=== PATIENT | female | born 1950 | race Caucasian/White ===

== ENCOUNTER 2017-03-09 23:00 | Outpatient (CLI) | payer MEDICARE, OTHER | END 2017-03-09 23:01 | disposition critical access hospital (66) | LOC: EMS 23:00 | PROVIDERS: ATTEND Surgery | DX: R41.82 Altered mental status, unspecified (principal) | CPT/HCPCS: A0425; A0427 ==

== ENCOUNTER 2017-03-09 23:42 | Inpatient (IN) | payer MEDICARE, OTHER ==
--- NOTE | 2017-03-10 00:56 | CT Preliminary Report ---
Exam: CT Head W/O IMPRESSION: No acute or focal intracranial abnormality. Paranasal sinus disease, requiring clinical c orrelation. [facility] SITE ID: [id number]
--- NOTE | 2017-03-10 00:58 | CT Report ---
EXAM: CT HEAD EXAM DATE: 03/10/2017 12:24 AM. CLINICAL HISTORY: Altered mental status. COMPARISON: None. TECHNIQUE: Multiaxial CT images were obtained from the foramen magnum to the vertex. IV contrast: Non e. Reformats: Coronal. In accordance with CT protocol optimization, one or more of the following dose reduction techniques w ere utilized for this exam: automated exposure control, adjustment of mA and/or KV based on patient s ize, or use of iterative reconstructive technique. FINDINGS: Parenchyma: No intraparenchymal hemorrhage. No evidence of mass, midline shift, or CT findings of inf arction. Barakat-white differentiation is distinct. Extraaxial Spaces: Normal for age. No subdural or epidural collections identified. Ventricles: Normal in size and position. Sinuses: Opacification of multiple ethmoid air cells bilaterally. Opacified left frontal sinus. Moder ate mucosal thickening within the right frontal sinus. Areas of mucosal thickening within the upper p ortions of both maxillary antra and within the left sphenoid. Bones: No evidence of fracture or calvarial defect. Other: None. IMPRESSION: No acute or focal intracranial abnormality. Paranasal sinus disease, requiring clinical c orrelation. [facility] Referring Provider Line: [phone] SITE ID: [id number]
[2017-03-10 01:31] LABS: BASOPHILS # (AUTO) 0.1 10^3/uL (0.0-0.1); BASOPHILS % (AUTO) 0.7 %; EOSINOPHILS # (AUTO) 0.3 10^3/uL (0.0-0.7); EOSINOPHILS % (AUTO) 4.4 %; HCT - HEMATOCRIT 35.8 % (37.0-47.0); HGB - HEMOGLOBIN 12.2 g/dL (12.0-16.0); LYMPHOCYTES # (AUTO) 1.2 10^3/uL (1.5-3.5); LYMPHOCYTES % (AUTO) 15.3 %; MEAN CORPUSCULAR HEMOGLOBIN 32.5 pg (27.0-31.0); MEAN CORPUSCULAR VOLUME 95.5 fL (81.0-99.0); MEAN PLATELET VOLUME 6.9 fL (7.9-10.8); MONOCYTES # (AUTO) 0.9 10^3/uL (0.0-1.0); MONOCYTES % (AUTO) 11.1 %; NEUTROPHILS # (AUTO) 5.3 10^3/uL (1.5-6.6); NEUTROPHILS % (AUTO) 68.5 %; RED BLOOD COUNT 3.75 10^6/uL (4.20-5.40); RED CELL DISTRIBUTION WIDTH 13.6 % (12.0-15.0); UNCORRECTED WHITE BLOOD COUNT 7.7 x10^3/uL; WHITE BLOOD COUNT 7.7 x10^3/uL (4.8-10.8)
--- NOTE | 2017-03-10 01:41 | ED Physician Documentation ---
PD HPI ALTERED MENTAL STATUS - Stated complaint Stated Complaint: AMS - Chief complaint Chief Complaint: Neuro - History obtained from History obtained from: EMS, Caregiver - History of Present Illness Timing - onset: Today Timing - details: Gradual onset, Still present Quality / character: Less responsive, Confused Associated symptoms: No: Fever, Headache, Stiff neck, General weakness, Focal weakness, Seizure activity, Syncope Contributing factors: Diabetic, Cancer Basline status: Alert and oriented X 3 Treatment METAL WEIGHER: Accucheck Similar symptoms before: Work up / diagnostics, Treatment, Follow up Recently seen: Emergency Dept - Additional information Additional information: Patient is a 66 year old female with a 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 According to the friends of the patient, about 3 hours ago the patient started acting differently , getting less responsive and confused so the called ems. Upon arrival to the emergency department patient was awake, but not following commands. patient was moving all extremities and would look at you if you called her name. The friends state there was something similar about a month ago but it occured in [place] (where patient normally resides). Review of Systems Unable to obtain: AMS PD PAST MEDICAL HISTORY - Past Medical History Past Medical History: Yes Endocrine/Autoimmune: Type 2 diabetes Other Past Medical History: cancer of the appendix - Past Surgical History Past Surgical History: Yes - Present Medications Home Medications: Ambulatory Orders Medication Instructions Recorded Confirmed Bisoprolol Fumarate 10 mg PO DAILY 03/10/17 03/10/17 Hydrochlorothiazide 25 mg PO DAILY 03/10/17 03/10/17 Insulin Glargine [Lantus] 10 unit SUBQ ONCE 03/10/17 03/10/17 Irbesartan [Avapro] 150 mg PO DAILY 03/10/17 03/10/17 Magnesium 100 mg PO DAILY 03/10/17 03/10/17 Potassium Chloride 600 mg PO DAILY 03/10/17 03/10/17 Pyridoxine HCl [Vitamin B-6] 10 mg PO DAILY 03/10/17 03/10/17 Tramadol HCl/Acetaminophen 1 each PO QID 03/10/17 03/10/17 [Tramadol-Acetaminophn 37.5-325] metFORMIN [Glucophage] 500 mg PO BID 03/10/17 03/10/17 - Allergies Allergies/Adverse Reactions: Allergies Allergy/AdvReac Type Severity Reaction Status Date / Time Penicillins Allergy Unknown Verified 03/10/17 02:41 - Social History Does the pt smoke?: No Smoking Status: Never smoker Does the pt drink ETOH?: No Does the pt have substance abuse?: No - Immunizations Immunizations are current?: Yes PD ED PE NORMAL - Vitals Vital signs reviewed: Yes - General General: No acute distress, Well developed/nourished - HEENT HEENT: Atraumatic, PERRL, Moist mucous membranes - Neck Neck: No JVD - Cardiac Cardiac: RRR, No murmur - Respiratory Respiratory: No respiratory distress, Clear bilaterally - Abdomen Abdomen: Soft, Non distended - Derm Derm: Normal color, Warm and dry, No rash - Extremities Extremities: No deformity, No tenderness to palpate, No edema PD ED PE EXPANDED - General General: No acute distress, Other (easily arousable) - Neuro Neuro: Confused, Normal motor, Other (no focal deficit, moves all extremities). No: Unresponsive, Normal Speech Results - Vitals Vitals: Vital Signs - 24 hr 03/09/17 03/10/17 23:44 03:03 Temperature 36.8 C Heart Rate 92 81 Respiratory 16 16 Rate Blood Pressure 183/117 H 186/93 H O2 Saturation 97 96 Oxygen O2 Source Room air - Labs Labs: Laboratory Tests 03/10/17 03/10/17 03/10/17 01:25 01:25 01:25 WBC 7.7 RBC 3.75 L Hgb 12.2 Hct 35.8 L MCV 95.5 MCH 32.5 H MCHC 34.0 RDW 13.6 Plt Count 275 MPV 6.9 L Neut # 5.3 Lymph # 1.2 L [place] # 0.9 Eos # 0.3 Baso # 0.1 Absolute Nucleated RBC 0.00 Nucleated RBCs 0.0 PT 11.4 INR 1.0 APTT 26.9 Sodium 134 L Potassium 3.5 Chloride 90 L Carbon Dioxide 31 Anion Gap 13.0 BUN 18 Creatinine 0.6 Estimated GFR (MDRD) 100 Glucose 285 H Calcium 10.0 Phosphorus 3.2 Magnesium 1.7 Total Bilirubin 0.5 AST 18 ALT 13 Alkaline Phosphatase 69 Troponin I B-Natriuretic Peptide Total Protein 7.8 Albumin 4.1 Globulin 3.7 Albumin/Globulin Ratio 1.1 Lipase 21 L Urine Color Urine Clarity Urine pH Ur Specific [place] Urine Protein Urine Glucose (UA) Urine Ketones Urine Occult Blood Urine Nitrite Urine Bilirubin Urine Urobilinogen Ur Leukocyte Esterase Ur Microscopic Review Urine Culture Comments Urine Opiates Screen Ur Oxycodone Screen Urine Methadone Screen Ur Propoxyphene Screen Acetaminophen < 10 L Ur Barbiturates Screen Ur Tricyclics Screen Ur Phencyclidine Scrn Ur Amphetamine Screen U Methamphetamines Scrn U Benzodiazepines Scrn Urine Cocaine Screen U Cannabinoids Screen 03/10/17 03/10/17 03/10/17 01:25 01:25 02:50 WBC RBC Hgb Hct MCV MCH MCHC RDW Plt Count MPV Neut # Lymph # [place] # Eos # Baso # Absolute Nucleated RBC Nucleated RBCs PT INR APTT Sodium Potassium Chloride Carbon Dioxide Anion Gap BUN Creatinine Estimated GFR (MDRD) Glucose Calcium Phosphorus Magnesium Total Bilirubin AST ALT Alkaline Phosphatase Troponin I < 0.04 B-Natriuretic Peptide 105 H Total Protein Albumin Globulin Albumin/Globulin Ratio Lipase Urine Color YELLOW Urine Clarity CLEAR Urine pH 7.5 Ur Specific [place] 1.015 Urine Protein TRACE Urine Glucose (UA) 500 H Urine Ketones TRACE Urine Occult Blood TRACE-INTA Urine Nitrite NEGATIVE Urine Bilirubin NEGATIVE Urine Urobilinogen 0.2 (NORMAL) Ur Leukocyte Esterase NEGATIVE Ur Microscopic Review NOT INDICATED Urine Culture Comments NOT INDICATED Urine Opiates Screen NEGATIVE Ur Oxycodone Screen NEGATIVE Urine Methadone Screen NEGATIVE Ur Propoxyphene Screen NEGATIVE Acetaminophen Ur Barbiturates Screen NEGATIVE Ur Tricyclics Screen NEGATIVE Ur Phencyclidine Scrn NEGATIVE Ur Amphetamine Screen NEGATIVE U Methamphetamines Scrn NEGATIVE U Benzodiazepines Scrn NEGATIVE Urine Cocaine Screen NEGATIVE U Cannabinoids Screen NEGATIVE - Rads (name of study) ct head Radiology: Final report received (no acute abnormality) PD MEDICAL DECISION MAKING - ED course Complexity details: reviewed old records, reviewed results, re-evaluated patient , considered differential, d/w patient, d/w family, d/w franchise business consultant ED course: Patient was seen and examined at bedside. IV access was gained and labs were drawn. Patient was sent for imaging. When patient returned the results were reviewed. there were no major abnormalities. Patient was still confused. Patient was not a candidate for tpa due to the possible metastatic disease, and possible stroke in less than a month ago. case was discussed with the hospitalist who agreed for observation for MRI, further evaluation and care. Departure - Departure Disposition: ED Place in Observation Clinical Impression: Altered mental status Condition: Stable
[2017-03-10 01:45] LABS: ALBUMIN/GLOBULIN RATIO 1.1 (1.0-2.2); BILIRUBIN,TOTAL 0.5 mg/dL (0.2-1.0); BUN - BLOOD UREA NITROGEN 18 mg/dL (6-20); CARBON DIOXIDE - CO2 31 mmol/L (21-32); CHLORIDE 90 mmol/L (101-111); CREATININE 0.6 mg/dL (0.4-1.0); GFR - MDRD 100 (>89); GLUCOSE 285 mg/dL (70-100); LIPASE 21 U/L (22-51); MAGNESIUM 1.7 mg/dL (1.7-2.8); PHOSPHORUS 3.2 mg/dL (2.5-4.6); POTASSIUM 3.5 mmol/L (3.5-5.0); SODIUM 134 mmol/L (135-145); TOTAL PROTEIN 7.8 g/dL (6.7-8.2)
[2017-03-10 01:47] LABS: ACETAMINOPHEN < 10 ug/mL (10-30)
[2017-03-10 01:48] LABS: PT - PROTHROMBIN TIME 11.4 secs (9.9-12.6)
[2017-03-10 01:56] LABS: PARTIAL THROMBOPLASTIN TIME 26.9 secs (24.9-33.3)
[2017-03-10] MEDS ORDERED: ONDANSETRON 4 MG/2 ML VIAL ONE (02:58)
[2017-03-10 03:02] LABS: BILIRUBIN,URINE NEGATIVE (NEGATIVE); PH,URINE 7.5 PH (5.0-7.5)
[2017-03-10 03:10] LABS: UA CHARGE (STRIP ONLY) YES; UR CULTURE IF IND NOT INDICATED
[2017-03-10] MEDS ORDERED: ONDANSETRON ODT 4 MG TABLET TL PRN (04:00)
--- NOTE | 2017-03-10 05:42 | XRAY Preliminary Report ---
Exam: XR Abdomen 1 View IMPRESSION: 1. Left ureteral stent in place. 2. Moderate to large stool burden. [facility] SITE ID: [id number]
--- NOTE | 2017-03-10 05:45 | XRAY Report ---
EXAM: ABDOMEN RADIOGRAPHY EXAM DATE: 03/10/2017 04:11 AM. CLINICAL HISTORY: MRI screen, has stent in abd. COMPARISON: None. TECHNIQUE: 1 view. FINDINGS: Bowel Gas Pattern: Moderate to large stool burden. Nonobstructive. Other: Left ureteral stent. No metallic device seen. IMPRESSION: 1. Left ureteral stent in place. 2. Moderate to large stool burden. [facility] Referring Provider Line: [phone] SITE ID: [id number]
[2017-03-10] MEDS: CIPROFLOXACIN 200 MG/100 ML 100 ML IV SCH ×2 (06:05→18:20)
[2017-03-10] MEDS: SODIUM CHLORIDE FLUSH 0.9% 10 ML SYRINGE IVP SCH ×3 (06:05→21:26)
--- NOTE | 2017-03-10 06:09 | HISTORY & PHYSICAL EXAMINATION ---
DATE OF OBSERVATION: 03/10/2017. PRIMARY CARE PROVIDER: Unknown; the patient is a resident of [facility], and her healthcare is in [facility]. ADMITTING PROVIDER: Yolette Fletcher MD. CHIEF COMPLAINT: Sudden onset of confusion, garbled speech. HISTORY OF PRESENT ILLNESS: The patient is a 66-year-old female who presented to her physician in [facility] with increasing abdominal girth, weight loss in the summer of 2015. 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 Chemotherapy was then switched to that and some of it was attenuated because of development of peripheral neuropathy. All of this history is ob tained from her friend who accompanies her today. They are in contact with her friends in [facility] and they are emailing back and forth to give me this history. After receiving chemotherapy, disease progressed to metastatic disease to the lungs or pleura, they a re not sure. A month and a half ago she then presented with acute confusional state with jimmy cruz ch and they thought she was having a stroke. She was hospitalized in [place] for close to a week and th ey describe a series of x-rays to the brain, lumbar punctures. They think she even had 6 lumbar punct ures. There is suspicion that she may have meningeal spread of tumor. Chemotherapy has been temporarily stopped because she is awaiting removal of a stent in her abdomen. She had ureteral obstruction with a stent placed. It had been giving her frequent urinary tract infec tions and they stopped chemotherapy to let her cell counts bounce back to then allow them to remove t he stent. Since she was going to "have time" in between chemotherapy treatments, the patient opted to return to the [facility] to make one last trip to many friends. She flew into [place], [place] on 02/28. Her friends describe her as frail and having lost quite a bit of weight. She was over 200 p ounds and most likely is down to about 118 now, but she recovered quickly from her flight, was intere sted in friends, eating, was in good spirits. The main deficits her friends noticed is that she is no t as sharp as she used to be. 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 She was unsteady on her feet at times, but overall doing remarkably better than they anticipated. As the week progressed in [place], she became more and more exhausted. She had several parties that were he ld in her honor. She was spending more time sleeping. At one point she felt like she was developing a nother urinary tract infection, so went to the urgent care in [place]. She received Cipro p.o. for 3 days. She then flew to [place] yesterday, came to the [place] last night. She is here to visit friends. One of her friends from [place] accompanied her. Her main complaint over the last few days has been left lower quadrant pain where the stent is and the pain seems to be getting worse, since that she was marco ing tramadol today. From what they could see, there were no fevers, no chills, no rigors. She was just immensely exhauste d from the plane trip. She slept late this morning, got up, socialized normally, and then went back t o take another nap. When she woke up from her nap to eat dinner, she had an abrupt change. She had ga rbled speech or slurred speech. She seemed confused. Because she has diabetes, her friends thought th at she had a low blood sugar and gave her orange juice and something to eat. She quickly corrected he r mentation and was back to normal. That lasted about 45 minutes. She was in the process of saying go marielenabye to yet another friend who was returning to [place] when that friend notified the group at [facility] that she was back to having garbled speech and confused. She was clasping her phone in her hand, trying to put her fingers on it, trying to make a call to [place], saying "I can't see this, I can't s ee this." Speech quickly deteriorated to be garbled, making no sense, and she was back to also being very unsteady on her feet even more so. In our emergency room, she is afebrile, hypertensive to 183/117. Pulse is sinus. She is very sleepy a nd lethargic. Is responsive to voice, but is completely confused. Her main response to all questions is "okay, okay, okay." CT of the head was done and there is no acute intracranial abnormality. Sodium is 134. Random glucose 285. Lactic acid normal. White cell count normal, hemoglobin normal. She has glucosuria, trace proteinuria, but otherwise a clean urinalysis. Toxicology screen is negative. It has been a very difficult history taking session. The patient is unable to speak for herself, and it is her friend from [place] who is here and her friend locally on [facility] who has provided t his history, as they email back and forth between the [place] and [facility]. The patient is marrie d to an 89-year-old deaf man. He was a corporate accountant and he has not been in the picture yet with christopher rubio. PAST MEDICAL HISTORY 1. Type 2 diabetes mellitus. 2. G1, P0-0-1-0. 3. She has had a hysterectomy in the remote past. 4. History of right breast biopsy that was benign in the remote past. ALLERGIES: PENICILLIN. MEDICATIONS Her friends bring in her boxes of medication. She is on 1. Avapro 150 mg p.o. daily. 2. Bisacodyl 10 mg p.o. daily. 3. Glucophage 500 mg p.o. b.i.d. 4. Hydrochlorothiazide 25 mg p.o. daily. 5. Lantus 10 units subcutaneous at bedtime. 6. Magnesium 100 mg daily. 7. Potassium chloride 600 mg daily. 8. Tramadol with acetaminophen 1 tablet 4 times a day. She took 3 today. 9. Pyridoxine 10 mg p.o. daily. 10. Ciprofloxacin 250 p.o. b.i.d., #6 tablets, has 1 more tablet in the packet not yet completed. SOCIAL HISTORY: To her friends' knowledge, she was never a smoker and a rare alcohol drinker. She has been twice and currently is to her second , who is 89 and deaf. 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 CODE STATUS: BOTH FRIENDS CONCUR THAT THIS PATIENT WAS TERRIFIED OF ENDING UP WITH COGNITIVE IMPAIRME NTS. WHILE SHE WAS STILL SEEKING THERAPY, SHE HAS STATED OVER AND OVER AGAIN THAT IF IT GOT TO THE PO INT WHERE SHE WAS NOT HERSELF AND COULD NO LONGER THINK CLEARLY, SHE WAS GOING TO MOVE TO [place] SO SHE COULD DO [place]. SUCH, THE PATIENT WILL BE DO NOT RESUSCITATE, DO NOT INTUBATE ON THE BASIS OF THAT CONVERSATION. FAMILY HISTORY: Unknown. Unable to be obtained at this time. Her friends do know that she has a siste r who lives in [place], but do not know anything about her health status. REVIEW OF SYSTEMS: Also difficult to obtain. They describe her as currently quite cachectic. Intermit tently good appetite. She used to be over 200 pounds and is now quite cachectic. She is more unsteady on her feet, sleepier, and the patient herself acknowledges to them that she is not thinking clearly anymore. She has had increasing fatigue this last week. She is thinking about not driving anymore wh en she returns to [facility]. To their knowledge, she has no cardiac disease, pulmonary disease, chronic joint disease, or chronic psychiatric disease. PHYSICAL EXAMINATION VITAL SIGNS: She is seen in the emergency room with a temperature of 36.8, pulse 81, blood pressure 1 86/93, respirations 16, and 96% on room air. GENERAL: She is a gaunt, cachectic, middle-aged female who looks much older than stated age with bila teral temporal wasting, dry oral mucosa, a vacant glazed look when you do wake her up, short hair, bu t no alopecia. HEAD AND NECK: She has dry eyes. Pupils are reactive. Sclerae nonicteric. Speech is intact, in that s he will be repetitive in stating "I'm okay, I'm okay, I'm okay," but no other purposeful speech is gi mor. She is lying on her left side, and I cannot tell if some of her facial droop is just from gravit y and a slack facies. NECK: Supple. No JVD or goiter. LUNGS: Diminished breath sounds at the bases, but are clear to auscultation and percussion. CARDIOVASCULAR: PMI is normally placed with a regular rate and rhythm. ABDOMEN: Soft, not distended. Hypoactive bowel sounds. With attention to the left lower quadrant, the re is no pain, rebound, or guarding. EXTREMITIES: Thin with wasted muscle mass. No clubbing, cyanosis, or edema. Homans' negative. SKIN: Normal colored and quite pale over the lower extremities with no redness, swelling, heat, etc. NEUROLOGIC: She responds to my voice, looks me in the face, but is unable answer any questions. Her u niversal response is "okay." Again, possible slight facial droop, but speech is clear. Pupils are chadwick ctive. She does not follow any commands and on her own will spontaneously move her right hand to gras p an emesis bag because of emesis. She then uses her left arm to reposition her pillow and scratch he r head. She rolls over from one side of the body to the other side of the body without assistance. Sh e extends and flexes her knees and hips to make herself comfortable spontaneously. Hematology, coagulation, chemistry, urine and toxicology as above. CT of the head as above. ASSESSMENT AND PLAN 1. Altered mental status. In this patient, the differential diagnosis could be drugs from tramadol, i nfection from an untreated urinary tract infection, meningeal spread of tumor. Right now, I am not fi nding any significant electrolyte abnormalities. From a drug perspective, she is used to taking trama dol, so I would think that would not be it. Urinalysis is currently clear and I think most of it has been treated for a UTI already and leaves me with possible meningeal spread. The patient left [facility] before she got up final report on her lumbar puncture results. We will place in observation, treat wi th IV fluids. Order an MRI tomorrow morning, with and without contrast. 2. 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 Again, as above, MRI of the head with and without contrast. We will check a screening KUB to make sure the stent they talk about has no metal in it. 3. Type 2 diabetes mellitus, uncontrolled. It is not associated with lactic acidosis from metformin. We will continue high dose sliding scale insulin here with n.p.o. status. 4. DO NOT RESUSCITATE STATUS. 5. Deep venous thrombosis prophylaxis will be compression hose. JOB #: [id number] EXT JOB #:[id number]
[2017-03-10 06:18] LABS: CALCIUM 9.6 mg/dL (8.5-10.3); CREATININE 0.6 mg/dL (0.4-1.0); POTASSIUM 3.6 mmol/L (3.5-5.0)
[2017-03-10] MEDS: INSULIN REGULAR HUMAN 100 UNIT/1 ML 10 ML MDV SUBQ SCH ×3 (06:36→21:24)
[2017-03-10] MEDS: POLYETHYLENE GLYCOL 3350 17 GM PACKET PO SCH (08:39)
[2017-03-10 09:25] LABS: HEMOGLOBIN A1C 0.9 g/dL
[2017-03-10] MEDS ORDERED: LORazepam 2 MG/ML SYRINGE IVP PRN ×2 (10:09→16:32)
--- NOTE | 2017-03-10 12:09 | PROVIDER PROGRESS NOTE ---
Hospitalist Cross-cover Note - Cross-Cover Note Cross-Cover Note: The patient was seen and examined this afternoon. The patient appears to have progression of her symptoms. She is currently nonverbal and appears to have right hemineglect. Her right upper and lower extremities are flaccid, she is not following any commands but does open her eyes. We are awaiting MRI which will be done later this afternoon. The patient has likely had a stroke as she is hypertensive. We will allow for permissive hypertension and patient will be given aspirin per rectum. It is also possible that the patient may have metastatic spread of her appendiceal cancer to her brain. We will await MRI results to find out.
[2017-03-10] MEDS ORDERED: ASPIRIN 300 MG SUPP PR SCH (13:00)
[2017-03-10] MEDS: MORPHINE 2 MG/ML SYRINGE IVP PRN (16:01)
[2017-03-10] MEDS: SODIUM CHLORIDE FLUSH 0.9% 10 ML SYRINGE IVP PRN ×2 (16:01→16:45)
[2017-03-10] MEDS ORDERED: GADOBUTROL 7.5 MMOL/7.5 ML VIAL IVP ONE (17:12)
--- NOTE | 2017-03-10 18:23 | MRI Preliminary Report ---
Exam: MRI Brain W/WO Impression: 1. Motion limited study. 2. A very mild amount of white matter disease is demonstrated in the supratentorial brain. 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 3. No other intracranial pathology is identified. In particular, there is no evidence of infarction, hemorrhage or other acute brain pathology. In addition, the postcontrast sequences are degraded by pa tient motion, however, no obvious intracranial metastatic disease is demonstrated. 4. There is fairly extensive, mucosal disease in the paranasal sinuses as described. No definite air- fluid level is demonstrated. However, in the appropriate clinical setting this could represent active sinusitis. SITE ID: [id number]
[2017-03-10] MEDS ORDERED: IPRATROPIUM/ALBUTEROL 3 ML NEB INH SCH (19:00)
--- NOTE | 2017-03-10 19:28 | MRI Report ---
MRI BRAIN WITHOUT AND WITH CONTRAST INDICATION: 66-year-old female. Altered mental status (unresponsive). The patient has known intraabdo chase or intrapelvic malignancy. Concern for intracranial metastatic disease. COMPARISON: Head CT 03/10/2017. TECHNIQUE: 1. T1 sagittal and fat-saturated T2 coronal. 2. Axial T1, FLAIR, T2, T2*, and DWI. 3. 5.5 mL IV Gadavist. T1 3-D and T1 FFE axial sequences. FINDINGS: The patient had difficulty holding still for this examination. There is image degradation from patien t motion on multiple sequences, decreasing the diagnostic quality of the study. There is generalized cerebral and cerebellar volume loss. The degree of volume loss is considered at upper limits of normal for stated age. There is associated ex vacuo ventriculomegaly. There is no sig nificant discordance between the degree of ventriculomegaly and the amount of cortical sulcal dilatat ion to suggest the possibility of NPH or other form of hydrocephalus. There appears to be a mild amount of white matter disease in the supratentorial brain, manifested as focal and confluent T2 hyperdensities that are scattered throughout the periventricular and deep whit e matter bilaterally. A frontoparietal distribution predominates. Signal intensity of cortex and whit e matter otherwise grossly appears normal. There appear to be flow voids for the main intracranial arteries. No abnormal diffusion restriction i s demonstrated. No evidence of acute or chronic hemorrhage on T2* GRE sequence. Postcontrast sequences are degraded by patient motion. However, no enhancing intra-or extra-axial les ion is identified. No obvious pathologic meningeal or cranial nerve enhancement is identified. There appears to be normal intravascular contrast enhancement in the dural venous sinuses and deep venous s tructures. This effectively excludes the possibility of venous thrombosis. Limited assessment of the orbits reveals no gross pathology. In particular, no enhancing choroidal me tastasis is identified in either optic globe. Changes of previous left ocular lens extraction are not ed. There is extensive opacification of the ethmoid air cells. This appears to be due to mucosal thickeni ng plus or minus retained mucus. Mucosal thickening is seen in the sphenoid sinus. No definite air-fl uid level is demonstrated. There is near total opacification of frontal sinuses from circumferential mucosal thickening. No mastoid or middle ear effusion is demonstrated. Marrow signal intensity in the regional skeletal structures is unremarkable. No T2 hyperintense or en hancing bone lesion is identified. IMPRESSION: 1. Motion-limited study. 2. A very mild amount of white matter disease is demonstrated in the supratentorial brain. The findin gs are relatively nonspecific; however, this most likely represents chronic microangiopathy. 3. No other intracranial pathology is identified. In particular, there is no evidence of infarction, hemorrhage or other acute brain pathology. In addition, the postcontrast sequences are degraded by pa tient motion; however, no obvious intracranial metastatic disease is demonstrated. 4. There is fairly extensive, mucosal disease in the paranasal sinuses as described. No definite air- fluid level is demonstrated. However, in the appropriate clinical setting, this could represent activ e sinusitis. Referring Provider Line: [phone] SITE ID: [id number]
[2017-03-10] MEDS: DOXYCYCLINE 100 MG TABLET PO SCH (20:14)
[2017-03-10] MEDS: LORazepam 2 MG/ML SYRINGE IVP PRN (21:14)
[2017-03-10] MEDS: MORPHINE 2 MG/ML CARPUJECT IVP PRN (21:22)
[2017-03-10] MEDS: ACETAMINOPHEN 1,000 MG/100 ML 100 ML IV PRN (22:06)
[2017-03-10] MEDS ORDERED: VANCOMYCIN PER PHARMACY 1 GM in SODIUM CHLORIDE 0.9% 250 ML IV SCH (23:45)
[2017-03-11] MEDS: AZTREONAM 2 GM in SODIUM CHLORIDE 0.9% MINIBAG 100 ML IV SCH ×3 (01:21→16:49)
[2017-03-11] MEDS: MORPHINE 2 MG/ML CARPUJECT IVP PRN (01:26)
[2017-03-11] MEDS: INSULIN REGULAR HUMAN 100 UNIT/1 ML 10 ML MDV SUBQ SCH ×4 (01:40→18:34)
[2017-03-11] MEDS: ACETAMINOPHEN 1,000 MG/100 ML 100 ML IV PRN ×3 (01:48→18:35)
[2017-03-11] MEDS: VANCOMYCIN INJ 1 GM in SODIUM CHLORIDE 0.9% 250 ML IV SCH (02:17)
[2017-03-11] MEDS: LORazepam 2 MG/ML SYRINGE IVP PRN ×2 (05:42→07:52)
[2017-03-11] MEDS: SODIUM CHLORIDE FLUSH 0.9% 10 ML SYRINGE IVP SCH ×3 (05:43→21:27)
[2017-03-11] MEDS: CIPROFLOXACIN 200 MG/100 ML 100 ML IV SCH ×2 (05:47→16:52)
[2017-03-11 06:49] LABS: CALCIUM 8.9 mg/dL (8.5-10.3); CREATININE 0.7 mg/dL (0.4-1.0); POTASSIUM 2.9 mmol/L (3.5-5.0)
[2017-03-11 07:09] LABS: CHOL/HDL RATIO 3.1 (<4.4); CHOLESTEROL 179 mg/dL; HDL CHOLESTEROL 57 mg/dL; LDL/HDL RATIO 1.8 (<4.4); TRIGLYCERIDES 86 mg/dL; VLDL CHOLESTEROL 17 mg/dL
[2017-03-11] MEDS ORDERED: DEXTROSE IV ONE (08:02)
[2017-03-11] MEDS ORDERED: NACL IV ONE (08:02)
[2017-03-11 08:54] LABS: THYROID STIMULATING HORMONE 0.78 uIU/mL (0.34-5.60)
[2017-03-11] MEDS: POLYETHYLENE GLYCOL 3350 17 GM PACKET PO SCH (09:26)
[2017-03-11] MEDS: DOXYCYCLINE 100 MG TABLET PO SCH (09:26)
[2017-03-11] MEDS: POTASSIUM CHLOR 10 MEQ/100 ML 100 ML IV SCH ×4 (10:02→14:02)
[2017-03-11] MEDS: D5.45NS W/20 MEQ KCL 1,000 ML IV SCH ×2 (10:02→23:24)
[2017-03-11] MEDS: SODIUM CHLORIDE FLUSH 0.9% 10 ML SYRINGE IVP PRN (10:34)
[2017-03-11] MEDS: MORPHINE 2 MG/ML SYRINGE IVP PRN (10:34)
[2017-03-11] MEDS: INSULIN GLARGINE 300 UNIT/3 ML PEN SUBQ SCH (13:09)
--- NOTE | 2017-03-11 13:44 | PROVIDER PROGRESS NOTE ---
Assessment/Plan - Problem List (1) Altered mental status Qualifiers: Altered mental status type: unspecified Qualified Code(s): R41.82 - Altered mental status, unspecified Assessment/Plan: Patient presented with acute change in mentation at dinner just prior to arrival According to friends she was acting strange and became confused later her voice became garbled On presentation she was perpetrating and repeatedly would say 'ok' to all questions She did not have any obvious motor deficits on presentation Patients symptoms progressed very rapidly within hours she began displaying right chantal-neglect and was non verbal Patient lives in [facility] and has been getting treatment for Appendiceal mucinous cancer and recently developed some garbled speech, seizures and neurological deficits for which she was hospitalized and underwent extensive workup including MRI and LP which seem to have been inconclusive but most likely thought to have meningeal spread of cancer Patient underwent MRI yesterday which did not show any acute intracranial abnormality Patient does not appear to have had a stroke The most likely cause for her altered mental status is meningeal spread of the cancer vs meningitis After speaking with patients friends and family decision was made not to do another LP as patient required 6 pokes to get LP in [facility] We will treat empirically from meningitis and encephalitis and monitor the patient Patient continues to have progression of her symptoms and continues to have a rapid decline now not opening eyes or responsive and only minimally moving the left side Patient is spiking fevers which makes infection more likely Plan: IV vanco, aztreonam, cipro and acyclovir Continue to monitor neuro status If patient continues to decline despite treatment then family would like to make her comfortable Patients prognosis is poor given the rapid decline and her underlying cancer Patient will be given 24-48 hours of abx to see if she responds if not responding patient will likely be made comfort care We will not start tube feedings unless patient starts to show signs of recovery Patients friends want patient to go back to [facility] but it was explained to them that in her current condition this was not possible and I spoke with her and told him that it would be best if he came here (2) Malignant neoplasm of appendix Assessment/Plan: 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 , 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 Patients AMS maybe secondary to meningeal spread but will treat as meningitis for now and wait to see if any recovery occurs Patients MRI was negative (3) Diabetes Qualifiers: Diabetes mellitus type: type 2 Assessment/Plan: Patient NPO secondary to AMS Placed on IV D5 1/2NS with K Started on home dose of lantus and NPO SS insulin Monitor BG ACHS (4) Hypertension Qualifiers: Hypertension type: essential hypertension Qualified Code(s): I10 - Essential (primary) hypertension Assessment/Plan: We were allowing for permissive HTN given that we thought this was stroke initially Now patients BP is improved without intervention Will hold home meds as patient NPO will give IV antihypertensives if needed (5) Prophylactic use of low molecular weight heparin for venous thromboembolism (VTE) Assessment/Plan: On lovenox - Current Meds Current Meds: Current Medications Generic Name Dose Route Start Last Admin Trade Name Freq PRN Reason Stop Dose Admin Albuterol/Ipratropium 3 ml 03/10/17 19:00 03/10/17 19:10 Duoneb INH 03/11/17 19:00 3 ml RTQID AGUSTINA Administration Doxycycline Hyclate 100 mg 03/10/17 21:00 03/11/17 09:26 Vibramycin PO Not Given BID AGUSTINA Ciprofloxacin 100 mls @ 100 mls/hr 03/10/17 05:00 03/11/17 05:47 Cipro 200 Mg/100 Ml IV 100 mls/hr Q12H AGUSTINA Administration Acetaminophen 100 mls @ 400 mls/hr 03/10/17 20:57 03/11/17 01:48 Ofirmev IV 400 mls/hr Q6HR PRN Administration PAIN Aztreonam 2 gm/ Sodium 100 mls @ 100 mls/hr 03/11/17 00:00 03/11/17 07:51 Chloride IV 100 mls/hr Q8H AGUSTINA Administration Vancomycin HCl 1 gm/ Sodium 250 mls @ 167 mls/hr 03/11/17 01:00 03/11/17 02:17 Chloride IV 167 mls/hr Q24H AGUSTINA Administration Potassium Chloride/Dextrose/Sod Cl 1,000 mls @ 83.333 mls/hr 03/11/17 08:00 02/17 10:02 D5.45ns W/20 Meq Kcl IV 83.333 mls/hr .Q12H AGUSTINA Administration Insulin Glargine 10 unit 03/11/17 09:00 03/11/17 13:09 Lantus Solostar SUBQ 10 unit DAILY AGUSTINA Administration Insulin Human Regular 3 - 11 unit 03/10/17 06:00 03/11/17 13:10 Novolin R SUBQ 5 unit Q6HR AGUSTINA Administration Protocol Lorazepam 1 mg 03/10/17 20:58 03/11/17 07:52 Ativan Inj IVP 1 mg Q2HR PRN Administration Agitation Morphine Sulfate 0.5 mg 03/10/17 14:00 03/11/17 10:34 Morphine IVP 0.5 mg Q8H PRN Administration PAIN Polyethylene Glycol 17 gm 03/10/17 09:00 03/11/17 09:26 Miralax PO Not Given DAILY AGUSTINA Sodium Chloride 10 ml 03/10/17 04:00 03/11/17 10:34 Normal Saline Flush 0.9% IVP 10 ml PRN PRN Administration NEEDED PER PROVIDER ORDERS Sodium Chloride 10 ml 03/10/17 06:00 03/11/17 07:52 Normal Saline Flush 0.9% IVP 10 ml Q8HR AGUSTINA Administration - Lab Result Lab results reviewed: Yes Fish Bone Diagrams: 03/10/17 01:25 03/11/17 06:08 - Diagnostic Imaging Results Diagnostic Imaging Results: Final report reviewed - Additional Planning Condition/Complexity: Critical My Orders: My Active Orders 03/11/17 08:00 D5.45ns W/20 Meq KCl 1,000 ml IV 83.333 mls/hr 03/11/17 09:00 Insulin Glargine [Lantus Solostar] 10 unit SUBQ DAILY 03/11/17 14:00 Acyclovir Inj [Zovirax Inj] 500 mg Sodium Chloride 0.9% [Normal Saline 0.9%] 250 ml IV TID Plan Discussed with:: Patient, Family, Other (Friends) Time Spent: Greater than 60 minutes Subjective - Subjective Patient Reports: Other (Not responding to verbal stimuli. does respond to tactile stimuli on the left. She has hemineglect of the right. Febrile overnight.) Nursing Reports: Other ([place] mental status) Objective Vital Signs: Vital Signs - 24 hr 03/11/17 03/11/17 03/11/17 01:22 03:45 06:03 Temperature 38.2 C H 37.6 C H 38.1 C H Heart Rate [ 116 H Apical] Heart Rate [ Brachial] Respiratory 18 Rate Blood Pressure 145/74 H [Left Brachial artery] O2 Saturation 94 03/11/17 03/11/17 06:30 07:55 Temperature 36.0 C L 37.3 C Heart Rate [ Apical] Heart Rate [ 87 Brachial] Respiratory 22 Rate Blood Pressure 129/65 [Left Brachial artery] O2 Saturation 95 Oxygen O2 Source Room air I&O (Last 24 Hrs): Intake and Output Totals x24h 03/09/17 03/10/17 03/11/17 23:59 23:59 23:59 Intake Total 630 Balance 630 General: Moderate distress, Other (Not folowing commands, only responding to tactile stimuli on the left side. Not opening eyes.) HEENT: Atraumatic, PERRLA, EOMI, Other (Dry mucus membranes) Neck: Supple, No JVD, No thyromegaly, +2 carotid pulse wo bruit, No LAD Lymphatic: no adenopathy Neuro: Focal Deficits (Right hemineglect, no babinski on right, flaccid upper and lower Ext on the right.), Other (Not responsive to verbal stimuli, not following commands.) Cardiovascular: Regular rate, Normal S1, Normal S2, No murmurs Respiratory: Chest non-tender, No respiratory distress, Breath sounds nml Abdomen: Normal bowel sounds, Soft, No tenderness, No hepatospenomegaly Extremities: No clubbing, No cyanosis, No edema, Normal pulses Skin: No rashes, No breakdown, No significant lesion - Results Results: Laboratory Results WBC 7.7 x10^3/uL (4.8-10.8) 03/10/17 01:25 RBC 3.75 10^6/uL (4.20-5.40) L 03/10/17 01:25 Hgb 12.2 g/dL (12.0-16.0) 03/10/17 01:25 Hct 35.8 % (37.0-47.0) L 03/10/17 01:25 MCV 95.5 fL (81.0-99.0) 03/10/17 01:25 MCH 32.5 pg (27.0-31.0) H 03/10/17 01:25 MCHC 34.0 g/dL (32.0-36.0) 03/10/17 01:25 RDW 13.6 % (12.0-15.0) 03/10/17 01:25 Plt Count 275 10^3/uL (130-450) 03/10/17 01:25 MPV 6.9 fL (7.9-10.8) L 03/10/17 01:25 Neut # 5.3 10^3/uL (1.5-6.6) 03/10/17 01:25 Lymph # 1.2 10^3/uL (1.5-3.5) L 03/10/17 01:25 [place] # 0.9 10^3/uL (0.0-1.0) 03/10/17 01:25 Eos # 0.3 10^3/uL (0.0-0.7) 03/10/17 01:25 Baso # 0.1 10^3/uL (0.0-0.1) 03/10/17 01:25 Absolute Nucleated RBC 0.00 x10^3/uL 03/10/17 01:25 Nucleated RBCs 0.0 /100WBC 03/10/17 01:25 PT 11.4 secs (9.9-12.6) 03/10/17 01:25 INR 1.0 (0.8-1.2) 03/10/17 01:25 APTT 26.9 secs (24.9-33.3) 03/10/17 01:25 Sodium 132 mmol/L (135-145) L 03/11/17 06:08 Potassium 2.9 mmol/L (3.5-5.0) L 03/11/17 06:08 Chloride 91 mmol/L (101-111) L 03/11/17 06:08 Carbon Dioxide 30 mmol/L (21-32) 03/11/17 06:08 Anion Gap 11.0 (6-13) 03/11/17 06:08 BUN 29 mg/dL (6-20) H 03/11/17 06:08 Creatinine 0.7 mg/dL (0.4-1.0) 03/11/17 06:08 Estimated GFR (MDRD) 84 (>89) L 03/11/17 06:08 Glucose 197 mg/dL (70-100) H 03/11/17 06:08 POC Whole Bld Glucose 202 mg/dL (70 - 100) H 03/11/17 12:06 Glycated Hemoglobin 8.7 % (4.6-6.2) H 03/10/17 05:59 Estim Average Glucose 203 (70-100) H 03/10/17 05:59 Calcium 8.9 mg/dL (8.5-10.3) 03/11/17 06:08 Phosphorus 3.2 mg/dL (2.5-4.6) 03/10/17 01:25 Magnesium 1.7 mg/dL (1.7-2.8) 03/10/17 01:25 Total Bilirubin 0.5 mg/dL (0.2-1.0) 03/10/17 01:25 AST 18 IU/L (10-42) 03/10/17 01:25 ALT 13 IU/L (10-60) 03/10/17 01:25 Alkaline Phosphatase 69 IU/L (42-121) 03/10/17 01:25 Ammonia 13.6 umol/L (7-35) 03/11/17 07:58 Troponin I < 0.04 ng/mL (<0.49) 03/10/17 01:25 B-Natriuretic Peptide 105 pg/mL (5-100) H 03/10/17 01:25 Total Protein 7.8 g/dL (6.7-8.2) 03/10/17 01:25 Albumin 4.1 g/dL (3.2-5.5) 03/10/17 01:25 Globulin 3.7 g/dL (2.1-4.2) 03/10/17 01:25 Albumin/Globulin Ratio 1.1 (1.0-2.2) 03/10/17 01:25 Triglycerides 86 mg/dL (-149) 03/11/17 06:08 Cholesterol 179 mg/dL (-199) 03/11/17 06:08 LDL Cholesterol, Calc 105 mg/dL (-129) 03/11/17 06:08 VLDL Cholesterol 17 mg/dL 03/11/17 06:08 HDL Cholesterol 57 mg/dL (60-) L 03/11/17 06:08 LDL/HDL Ratio 1.8 (<4.4) 03/11/17 06:08 Cholesterol/HDL Ratio 3.1 (<4.4) 03/11/17 06:08 Lipase 21 U/L (22-51) L 03/10/17 01:25 Vitamin B12 294 pg/mL (180-914) 03/11/17 07:58 Folate 34.00 ng/mL (5.90 - >24.8) 03/11/17 07:58 TSH 0.78 uIU/mL (0.34-5.60) 03/11/17 07:58 Urine Color YELLOW 03/10/17 02:50 Urine Clarity CLEAR (CLEAR) 03/10/17 02:50 Urine pH 7.5 PH (5.0-7.5) 03/10/17 02:50 Ur Specific [place] 1.015 (1.002-1.030) 03/10/17 02:50 Urine Protein TRACE mg/dL (NEGATIVE) 03/10/17 02:50 Urine Glucose (UA) 500 mg/dL (NEGATIVE) H 03/10/17 02:50 Urine Ketones TRACE mg/dL (NEGATIVE) 03/10/17 02:50 Urine Occult Blood TRACE-INTA (NEGATIVE) 03/10/17 02:50 Urine Nitrite NEGATIVE (NEGATIVE) 03/10/17 02:50 Urine Bilirubin NEGATIVE (NEGATIVE) 03/10/17 02:50 Urine Urobilinogen 0.2 (NORMAL) E.U./dL (NORMAL) 03/10/17 02:50 Ur Leukocyte Esterase NEGATIVE (NEGATIVE) 03/10/17 02:50 Ur Microscopic Review NOT INDICATED 03/10/17 02:50 Urine Culture Comments NOT INDICATED 03/10/17 02:50 Urine Opiates Screen NEGATIVE (NEGATIVE) 03/10/17 02:50 Ur Oxycodone Screen NEGATIVE (NEGATIVE) 03/10/17 02:50 Urine Methadone Screen NEGATIVE (NEGATIVE) 03/10/17 02:50 Ur Propoxyphene Screen NEGATIVE (NEGATIVE) 03/10/17 02:50 Acetaminophen < 10 ug/mL (10-30) L 03/10/17 01:25 Ur Barbiturates Screen NEGATIVE (NEGATIVE) 03/10/17 02:50 Ur Tricyclics Screen NEGATIVE (NEGATIVE) 03/10/17 02:50 Ur Phencyclidine Scrn NEGATIVE (NEGATIVE) 03/10/17 02:50 Ur Amphetamine Screen NEGATIVE (NEGATIVE) 03/10/17 02:50 U Methamphetamines Scrn NEGATIVE (NEGATIVE) 03/10/17 02:50 U Benzodiazepines Scrn NEGATIVE (NEGATIVE) 03/10/17 02:50 Urine Cocaine Screen NEGATIVE (NEGATIVE) 03/10/17 02:50 U Cannabinoids Screen NEGATIVE (NEGATIVE) 03/10/17 02:50
[2017-03-11] MEDS: ACYCLOVIR INJ 500 MG in SODIUM CHLORIDE 0.9% 250 ML IV SCH ×2 (15:01→21:26)
[2017-03-12] MEDS: AZTREONAM 2 GM in SODIUM CHLORIDE 0.9% MINIBAG 100 ML IV SCH ×4 (00:26→23:58)
[2017-03-12] MEDS: D5.45NS W/20 MEQ KCL 1,000 ML IV SCH (00:27)
[2017-03-12] MEDS: DEXAMETHASONE 4 MG/ML VIAL IVP SCH ×5 (00:30→23:58)
[2017-03-12] MEDS: INSULIN REGULAR HUMAN 100 UNIT/1 ML 10 ML MDV SUBQ SCH ×2 (00:51→06:00)
[2017-03-12] MEDS: VANCOMYCIN INJ 1 GM in SODIUM CHLORIDE 0.9% 250 ML IV SCH (01:28)
[2017-03-12] MEDS: LORazepam 2 MG/ML SYRINGE IVP PRN ×3 (01:45→21:37)
[2017-03-12] MEDS: MORPHINE 2 MG/ML SYRINGE IVP PRN (02:12)
[2017-03-12] MEDS: CIPROFLOXACIN 200 MG/100 ML 100 ML IV SCH ×2 (04:27→18:11)
[2017-03-12] MEDS: ACYCLOVIR INJ 500 MG in SODIUM CHLORIDE 0.9% 250 ML IV SCH ×3 (05:43→21:37)
[2017-03-12] MEDS: SODIUM CHLORIDE FLUSH 0.9% 10 ML SYRINGE IVP SCH ×3 (06:04→20:24)
[2017-03-12 06:42] LABS: CALCIUM 8.8 mg/dL (8.5-10.3); CREATININE 0.6 mg/dL (0.4-1.0); POTASSIUM 3.8 mmol/L (3.5-5.0)
[2017-03-12 07:47] LABS: BASOPHILS % (AUTO) 0.2 %; HCT - HEMATOCRIT 34.5 % (37.0-47.0); HGB - HEMOGLOBIN 11.7 g/dL (12.0-16.0); LYMPHOCYTES # (AUTO) 0.6 10^3/uL (1.5-3.5); LYMPHOCYTES % (AUTO) 4.3 %; MEAN CORPUSCULAR HEMOGLOBIN 32.2 pg (27.0-31.0); MEAN CORPUSCULAR VOLUME 94.8 fL (81.0-99.0); MEAN PLATELET VOLUME 7.4 fL (7.9-10.8); MONOCYTES # (AUTO) 0.4 10^3/uL (0.0-1.0); MONOCYTES % (AUTO) 2.4 %; NEUTROPHILS # (AUTO) 13.7 10^3/uL (1.5-6.6); NEUTROPHILS % (AUTO) 93.1 %; NUCLEATED RED BLOOD CELLS AUTO 0.1 /100WBC; RED BLOOD COUNT 3.64 10^6/uL (4.20-5.40); UNCORRECTED WHITE BLOOD COUNT 14.7 x10^3/uL; WHITE BLOOD COUNT 14.7 x10^3/uL (4.8-10.8)
[2017-03-12] MEDS: ENOXAPARIN 40 MG/0.4 ML SYRINGE SUBQ SCH (09:21)
[2017-03-12] MEDS: POLYETHYLENE GLYCOL 3350 17 GM PACKET PO SCH (09:27)
[2017-03-12] MEDS: INSULIN GLARGINE 300 UNIT/3 ML PEN SUBQ SCH (10:21)
[2017-03-12] MEDS ORDERED: INSULIN ASPART 300 UNIT/3 ML PEN SUBQ SCH (12:00)
--- NOTE | 2017-03-12 12:12 | PROVIDER PROGRESS NOTE ---
Assessment/Plan - Problem List (1) Altered mental status Qualifiers: Altered mental status type: unspecified Qualified Code(s): R41.82 - Altered mental status, unspecified Assessment/Plan: Patient presented with acute change in mentation at dinner just prior to arrival According to friends she was acting strange and became confused later her voice became garbled On presentation she was perpetrating and repeatedly would say 'ok' to all questions She did not have any obvious motor deficits on presentation Patients symptoms progressed very rapidly within hours she began displaying right chantal-neglect and was non verbal Patient lives in [facility] and has been getting treatment for Appendiceal mucinous cancer and recently developed some garbled speech, seizures and neurological deficits for which she was hospitalized and underwent extensive workup including MRI and LP which seem to have been inconclusive but most likely thought to have meningeal spread of cancer Patient underwent MRI yesterday which did not show any acute intracranial abnormality Patient does not appear to have had a stroke The most likely cause for her altered mental status is meningeal spread of the cancer vs meningitis After speaking with patients friends and family decision was made not to do another LP as patient required 6 pokes to get LP in [facility] We will treat empirically from meningitis and encephalitis and monitor the patient Patient has had significant improvement since yesterday morning as she is now attempting to verbalize but having some expressive aphasia, she is moving all extremities and is able to follow commands She passed a swallow study this morning. Patient was febrile yesterday and had an elevated WBC this morning suggesting this was likely a meningitis or encephalitis. 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 Patients AMS maybe secondary to meningeal spread but unlikely as she seems to be improving with abx Patients MRI was negative (3) Diabetes Qualifiers: Diabetes mellitus type: type 2 Assessment/Plan: Patient started on diet today Stop IV D5 1/2NS with K Started on home dose of lantus and will start eating SS insulin Monitor BG ACHS (4) Hypertension Qualifiers: Hypertension type: essential hypertension Qualified Code(s): I10 - Essential (primary) hypertension Assessment/Plan: Now that patient is able to swallow will restart home meds Monitor (5) Prophylactic use of low molecular weight heparin for venous thromboembolism (VTE) Assessment/Plan: On lovenox - Current Meds Current Meds: Current Medications Generic Name Dose Route Start Last Admin Trade Name Freq PRN Reason Stop Dose Admin Dexamethasone 8 mg 03/12/17 00:00 03/12/17 05:43 Decadron IVP 8 mg Q6H AGUSTINA Administration Enoxaparin Sodium 30 mg 03/12/17 09:00 03/12/17 09:21 Lovenox SUBQ 30 mg DAILY AGUSTINA Administration Ciprofloxacin 100 mls @ 100 mls/hr 03/10/17 05:00 03/12/17 04:27 Cipro 200 Mg/100 Ml IV 100 mls/hr Q12H AGUSTINA Administration Acetaminophen 100 mls @ 400 mls/hr 03/10/17 20:57 03/11/17 18:35 Ofirmev IV 400 mls/hr Q6HR PRN Administration PAIN Aztreonam 2 gm/ Sodium 100 mls @ 100 mls/hr 03/11/17 00:00 03/12/17 09:22 Chloride IV 100 mls/hr Q8H AGUSTINA Administration Vancomycin HCl 1 gm/ Sodium 250 mls @ 167 mls/hr 03/11/17 01:00 03/12/17 01:28 Chloride IV 167 mls/hr Q24H AGUSTINA Administration Potassium Chloride/Dextrose/Sod Cl 1,000 mls @ 83.333 mls/hr 03/11/17 08:00 03/20 00:27 D5.45ns W/20 Meq Kcl IV 83.333 mls/hr .Q12H AGUSTINA Administration Acyclovir 500 mg/ Sodium 260 mls @ 250 mls/hr 03/11/17 14:00 03/12/17 05:43 Chloride IV 250 mls/hr TID AGUSTINA Administration Insulin Glargine 10 unit 03/11/17 09:00 03/12/17 10:21 Lantus Solostar SUBQ 10 unit DAILY AGUSTINA Administration Insulin Human Regular 3 - 11 unit 03/10/17 06:00 03/12/17 06:00 Novolin R SUBQ 5 unit Q6HR AGUSTINA Administration Protocol Lorazepam 1 mg 03/10/17 20:58 03/12/17 01:45 Ativan Inj IVP 1 mg Q2HR PRN Administration Agitation Morphine Sulfate 0.5 mg 03/10/17 14:00 03/11/17 10:34 Morphine IVP 0.5 mg Q8H PRN Administration PAIN Morphine Sulfate 2 mg 03/11/17 08:00 03/12/17 02:12 Morphine IVP 2 mg Q2HR PRN Administration PAIN Polyethylene Glycol 17 gm 03/10/17 09:00 03/12/17 09:27 Miralax PO Not Given DAILY AGUSTINA Sodium Chloride 10 ml 03/10/17 04:00 03/11/17 10:34 Normal Saline Flush 0.9% IVP 10 ml PRN PRN Administration NEEDED PER PROVIDER ORDERS Sodium Chloride 10 ml 03/10/17 06:00 03/12/17 06:04 Normal Saline Flush 0.9% IVP Not Given Q8HR AGUSTINA - Lab Result Lab results reviewed: Yes Fish Bone Diagrams: 03/12/17 05:55 03/12/17 05:55 - Diagnostic Imaging Results Diagnostic Imaging Results: Final report reviewed - Additional Planning Condition/Complexity: Guarded My Orders: My Active Orders 03/11/17 14:00 Acyclovir Inj [Zovirax Inj] 500 mg Sodium Chloride 0.9% [Normal Saline 0.9%] 250 ml IV TID 03/12/17 09:00 Enoxaparin [Lovenox] 30 mg SUBQ DAILY 03/12/17 Lunch Dysphagia Advanced Diet [DIET] 03/13/17 05:00 CBC - COMP BLD CT W/AUTO DIFF [HEME] DAILYLAB CMP [COMPREHENSIVE METABOLIC PANEL] [CHEM] DAILYLAB 03/14/17 05:00 CBC - COMP BLD CT W/AUTO DIFF [HEME] DAILYLAB CMP [COMPREHENSIVE METABOLIC PANEL] [CHEM] DAILYLAB 03/15/17 05:00 CBC - COMP BLD CT W/AUTO DIFF [HEME] DAILYLAB CMP [COMPREHENSIVE METABOLIC PANEL] [CHEM] DAILYLAB 03/16/17 05:00 CBC - COMP BLD CT W/AUTO DIFF [HEME] DAILYLAB CMP [COMPREHENSIVE METABOLIC PANEL] [CHEM] DAILYLAB 03/17/17 05:00 CBC - COMP BLD CT W/AUTO DIFF [HEME] DAILYLAB CMP [COMPREHENSIVE METABOLIC PANEL] [CHEM] DAILYLAB Plan Discussed with:: Patient, Other (Friends) Time Spent: 31-60 minutes Subjective - Subjective Patient Reports: Other (Patient following commands this am. She denies any pain. She was febrile yesterday evening but no fevers this morning.) Nursing Reports: No Complaints Objective Vital Signs: Vital Signs - 24 hr 03/11/17 03/11/17 03/11/17 14:18 14:54 15:35 Temperature 38.7 C H 39.3 C H 39.2 C H Heart Rate [ 96 101 H Brachial] Respiratory 24 21 Rate Blood Pressure 141/65 H 130/70 [Left Brachial artery] Blood Pressure [Right Brachial artery] O2 Saturation 93 94 03/11/17 03/11/17 03/12/17 17:51 20:57 00:57 Temperature 39.3 C H 37.1 C 36.6 C Heart Rate [ 91 88 Brachial] Respiratory 20 18 Rate Blood Pressure 127/64 [Left Brachial artery] Blood Pressure 152/61 H [Right Brachial artery] O2 Saturation 91 L 90 L 03/12/17 07:57 Temperature 36.3 C L Heart Rate [ 89 Brachial] Respiratory 16 Rate Blood Pressure 140/70 H [Left Brachial artery] Blood Pressure [Right Brachial artery] O2 Saturation 90 L Oxygen O2 Source Room air I&O (Last 24 Hrs): Intake and Output Totals x24h 03/10/17 03/11/17 03/12/17 23:59 23:59 23:59 Intake Total 1535 1805 Balance 1535 1805 General: Alert, Cooperative, Other (Following commands, moving all extremities, verbal but confused. Improved) HEENT: Atraumatic, PERRLA, EOMI, Other (Dry mucus membranes) Neck: Supple, No JVD, No thyromegaly, +2 carotid pulse wo bruit, No LAD Lymphatic: no adenopathy Neuro: Alert, Focal Deficits (Expressive aphasia), Other (Following commands, moving all extremities, verbal but confused. Improved) Cardiovascular: Regular rate, Normal S1, Normal S2, No murmurs Respiratory: Chest non-tender, No respiratory distress, Rales (bases) Abdomen: Normal bowel sounds, Soft, No tenderness, No hepatospenomegaly Extremities: No clubbing, No cyanosis, No edema, Normal pulses Skin: No rashes, No breakdown - Results Results: Laboratory Results WBC 14.7 x10^3/uL (4.8-10.8) H 03/12/17 05:55 RBC 3.64 10^6/uL (4.20-5.40) L 03/12/17 05:55 Hgb 11.7 g/dL (12.0-16.0) L 03/12/17 05:55 Hct 34.5 % (37.0-47.0) L 03/12/17 05:55 MCV 94.8 fL (81.0-99.0) 03/12/17 05:55 MCH 32.2 pg (27.0-31.0) H 03/12/17 05:55 MCHC 34.0 g/dL (32.0-36.0) 03/12/17 05:55 RDW 14.0 % (12.0-15.0) 03/12/17 05:55 Plt Count 240 10^3/uL (130-450) 03/12/17 05:55 MPV 7.4 fL (7.9-10.8) L 03/12/17 05:55 Neut # 13.7 10^3/uL (1.5-6.6) H 03/12/17 05:55 Lymph # 0.6 10^3/uL (1.5-3.5) L 03/12/17 05:55 [place] # 0.4 10^3/uL (0.0-1.0) 03/12/17 05:55 Eos # 0.0 10^3/uL (0.0-0.7) 03/12/17 05:55 Baso # 0.0 10^3/uL (0.0-0.1) 03/12/17 05:55 Absolute Nucleated RBC 0.01 x10^3/uL 03/12/17 05:55 Nucleated RBCs 0.1 /100WBC 03/12/17 05:55 PT 11.4 secs (9.9-12.6) 03/10/17 01:25 INR 1.0 (0.8-1.2) 03/10/17 01:25 APTT 26.9 secs (24.9-33.3) 03/10/17 01:25 Sodium 133 mmol/L (135-145) L 03/12/17 05:55 Potassium 3.8 mmol/L (3.5-5.0) 03/12/17 05:55 Chloride 98 mmol/L (101-111) L 03/12/17 05:55 Carbon Dioxide 26 mmol/L (21-32) 03/12/17 05:55 Anion Gap 9.0 (6-13) 03/12/17 05:55 BUN 24 mg/dL (6-20) H 03/12/17 05:55 Creatinine 0.6 mg/dL (0.4-1.0) 03/12/17 05:55 Estimated GFR (MDRD) 100 (>89) 03/12/17 05:55 Glucose 228 mg/dL (70-100) H 03/12/17 05:55 POC Whole Bld Glucose 194 mg/dL (70 - 100) H 03/12/17 05:46 Glycated Hemoglobin 8.7 % (4.6-6.2) H 03/10/17 05:59 Estim Average Glucose 203 (70-100) H 03/10/17 05:59 Calcium 8.8 mg/dL (8.5-10.3) 03/12/17 05:55 Phosphorus 3.2 mg/dL (2.5-4.6) 03/10/17 01:25 Magnesium 1.7 mg/dL (1.7-2.8) 03/10/17 01:25 Total Bilirubin 0.5 mg/dL (0.2-1.0) 03/10/17 01:25 AST 18 IU/L (10-42) 03/10/17 01:25 ALT 13 IU/L (10-60) 03/10/17 01:25 Alkaline Phosphatase 69 IU/L (42-121) 03/10/17 01:25 Ammonia 13.6 umol/L (7-35) 03/11/17 07:58 Troponin I < 0.04 ng/mL (<0.49) 03/10/17 01:25 B-Natriuretic Peptide 105 pg/mL (5-100) H 03/10/17 01:25 Total Protein 7.8 g/dL (6.7-8.2) 03/10/17 01:25 Albumin 4.1 g/dL (3.2-5.5) 03/10/17 01:25 Globulin 3.7 g/dL (2.1-4.2) 03/10/17 01:25 Albumin/Globulin Ratio 1.1 (1.0-2.2) 03/10/17 01:25 Triglycerides 86 mg/dL (-149) 03/11/17 06:08 Cholesterol 179 mg/dL (-199) 03/11/17 06:08 LDL Cholesterol, Calc 105 mg/dL (-129) 03/11/17 06:08 VLDL Cholesterol 17 mg/dL 03/11/17 06:08 HDL Cholesterol 57 mg/dL (60-) L 03/11/17 06:08 LDL/HDL Ratio 1.8 (<4.4) 03/11/17 06:08 Cholesterol/HDL Ratio 3.1 (<4.4) 03/11/17 06:08 Lipase 21 U/L (22-51) L 03/10/17 01:25 Vitamin B12 294 pg/mL (180-914) 03/11/17 07:58 Folate 34.00 ng/mL (5.90 - >24.8) 03/11/17 07:58 TSH 0.78 uIU/mL (0.34-5.60) 03/11/17 07:58 Urine Color YELLOW 03/10/17 02:50 Urine Clarity CLEAR (CLEAR) 03/10/17 02:50 Urine pH 7.5 PH (5.0-7.5) 03/10/17 02:50 Ur Specific [place] 1.015 (1.002-1.030) 03/10/17 02:50 Urine Protein TRACE mg/dL (NEGATIVE) 03/10/17 02:50 Urine Glucose (UA) 500 mg/dL (NEGATIVE) H 03/10/17 02:50 Urine Ketones TRACE mg/dL (NEGATIVE) 03/10/17 02:50 Urine Occult Blood TRACE-INTA (NEGATIVE) 03/10/17 02:50 Urine Nitrite NEGATIVE (NEGATIVE) 03/10/17 02:50 Urine Bilirubin NEGATIVE (NEGATIVE) 03/10/17 02:50 Urine Urobilinogen 0.2 (NORMAL) E.U./dL (NORMAL) 03/10/17 02:50 Ur Leukocyte Esterase NEGATIVE (NEGATIVE) 03/10/17 02:50 Ur Microscopic Review NOT INDICATED 03/10/17 02:50 Urine Culture Comments NOT INDICATED 03/10/17 02:50 Urine Opiates Screen NEGATIVE (NEGATIVE) 03/10/17 02:50 Ur Oxycodone Screen NEGATIVE (NEGATIVE) 03/10/17 02:50 Urine Methadone Screen NEGATIVE (NEGATIVE) 03/10/17 02:50 Ur Propoxyphene Screen NEGATIVE (NEGATIVE) 03/10/17 02:50 Acetaminophen < 10 ug/mL (10-30) L 03/10/17 01:25 Ur Barbiturates Screen NEGATIVE (NEGATIVE) 03/10/17 02:50 Ur Tricyclics Screen NEGATIVE (NEGATIVE) 03/10/17 02:50 Ur Phencyclidine Scrn NEGATIVE (NEGATIVE) 03/10/17 02:50 Ur Amphetamine Screen NEGATIVE (NEGATIVE) 03/10/17 02:50 U Methamphetamines Scrn NEGATIVE (NEGATIVE) 03/10/17 02:50 U Benzodiazepines Scrn NEGATIVE (NEGATIVE) 03/10/17 02:50 Urine Cocaine Screen NEGATIVE (NEGATIVE) 03/10/17 02:50 U Cannabinoids Screen NEGATIVE (NEGATIVE) 03/10/17 02:50
[2017-03-12] MEDS: INSULIN ASPART 300 UNIT/3 ML PEN SUBQ SCH ×2 (17:16→20:46)
[2017-03-13] MEDS: VANCOMYCIN INJ 1 GM in SODIUM CHLORIDE 0.9% 250 ML IV SCH (01:07)
[2017-03-13] MEDS: CIPROFLOXACIN 200 MG/100 ML 100 ML IV SCH ×2 (04:32→16:40)
[2017-03-13] MEDS: SODIUM CHLORIDE FLUSH 0.9% 10 ML SYRINGE IVP SCH ×3 (05:31→21:28)
[2017-03-13] MEDS: DEXAMETHASONE 4 MG/ML VIAL IVP SCH (05:39)
[2017-03-13] MEDS: ACYCLOVIR INJ 500 MG in SODIUM CHLORIDE 0.9% 250 ML IV SCH ×3 (05:39→21:28)
[2017-03-13] MEDS: LORazepam 2 MG/ML SYRINGE IVP PRN ×2 (05:51→15:07)
[2017-03-13 06:13] LABS: HCT - HEMATOCRIT 25.3 % (37.0-47.0); HGB - HEMOGLOBIN 8.7 g/dL (12.0-16.0); LYMPHOCYTES % (AUTO) 5.9 %; MEAN CORPUSCULAR HGB CONC 34.4 g/dL (32.0-36.0); MEAN CORPUSCULAR VOLUME 95.8 fL (81.0-99.0); MEAN PLATELET VOLUME 7.6 fL (7.9-10.8); MONOCYTES % (AUTO) 3.9 %; NEUTROPHILS % (AUTO) 90.2 %; RED BLOOD COUNT 2.64 10^6/uL (4.20-5.40); RED CELL DISTRIBUTION WIDTH 13.7 % (12.0-15.0); UNCORRECTED WHITE BLOOD COUNT 8.6 x10^3/uL; WHITE BLOOD COUNT 8.6 x10^3/uL (4.8-10.8)
[2017-03-13 06:25] LABS: ALBUMIN/GLOBULIN RATIO 0.9 (1.0-2.2); BILIRUBIN,TOTAL 0.8 mg/dL (0.2-1.0); CALCIUM 8.2 mg/dL (8.5-10.3); CREATININE 0.5 mg/dL (0.4-1.0)
[2017-03-13 06:54] LABS: BAND NEUTROPHILS % (MANUAL) 4 %; LYMPHOCYTES % (MANUAL) 3 %; NEUTROPHILS % (MANUAL) 88 %; TOTAL CELLS COUNTED 100
[2017-03-13 06:55] LABS: NP AUTO DIFFERENTIAL? YES; NP MAN DIFFERENTIAL? NO; PLATELET ESTIMATE, MANUAL NORMAL (130-450,000) (NORMAL)
[2017-03-13] MEDS: PROCHLORPERAZINE 10 MG/2 ML VIAL IVP PRN ×2 (07:07→17:28)
[2017-03-13] MEDS ORDERED: ONDANSETRON 4 MG/2 ML VIAL ONE (07:45)
[2017-03-13] MEDS: SODIUM CHLORIDE FLUSH 0.9% 10 ML SYRINGE IVP PRN (07:45)
[2017-03-13] MEDS: AZTREONAM 2 GM in SODIUM CHLORIDE 0.9% MINIBAG 100 ML IV SCH ×2 (08:27→16:40)
[2017-03-13 08:37] LABS: IRON 53 ug/dL (28-170); TOTAL IRON BINDING CAPACITY 179 ug/dL (250-450); TRANSFERRIN 128 mg/dL (192-382)
[2017-03-13] MEDS: INSULIN ASPART 300 UNIT/3 ML PEN SUBQ SCH ×4 (08:37→21:28)
[2017-03-13] MEDS: INSULIN GLARGINE 300 UNIT/3 ML PEN SUBQ SCH (08:39)
[2017-03-13 08:52] LABS: FERRITIN 556.1 ng/mL (11.0-306.8)
[2017-03-13 08:56] LABS: FOLATE 12.31 ng/mL (5.90 - >24.8)
[2017-03-13] MEDS ORDERED: INSULIN ASPART 300 UNIT/3 ML PEN SUBQ SCH (11:25)
[2017-03-13] MEDS: BISOPROLOL FUMARATE 10 MG PO SCH (12:10)
[2017-03-13] MEDS: ENOXAPARIN 40 MG/0.4 ML SYRINGE SUBQ SCH (12:11)
[2017-03-13] MEDS: LOSARTAN 50 MG TABLET PO SCH (12:11)
[2017-03-13] MEDS: hydroCHLOROthiazide 25 MG TABLET PO SCH (12:11)
[2017-03-13] MEDS: POLYETHYLENE GLYCOL 3350 17 GM PACKET PO SCH (12:12)
--- NOTE | 2017-03-13 12:15 | PROVIDER PROGRESS NOTE ---
Assessment/Plan - Problem List (1) Meningitis Assessment/Plan: Patient presented with acute change in mentation at dinner just prior to arrival According to friends she was acting strange and became confused later her voice became garbled On presentation she was persevering and repeatedly would say 'ok' to all questions She did not have any obvious motor deficits on presentation Patients symptoms progressed very rapidly within hours she began displaying right chantal-neglect and was non verbal Patient lives in [facility] and has been getting treatment for Appendiceal mucinous cancer and recently developed some garbled speech, seizures and neurological deficits for which she was hospitalized and underwent extensive workup including MRI and LP which seem to have been inconclusive but most likely thought to have meningeal spread of cancer Patient underwent MRI which did not show any acute intracranial abnormality Patient does not appear to have had a stroke The most likely cause for her altered mental status is meningeal spread of the cancer vs meningitis After speaking with patients friends and family decision was made not to do another LP as patient required 6 pokes to get LP in [facility] We will treat empirically from meningitis and encephalitis and monitor the patient Patient has had significant improvement since over the last 2 days as she is now able to verbalize and is A&Ox1 but thinks she is in [place], she is moving all extremities and has regained strength and is able to follow commands but does become agitated and is very impulsive She passed a swallow study and is now on a dysphagia diet which we will change to a diabetic diet Patient was febrile 2 days ago and had an elevated WBC yesterday but has been afebrile since and WBC improved This appears to have been meningitis given the fevers, acute altered mental status, elevated WBCs, negative CT/MRI and improvement on antibiotics. Blood cx are negative Plan: Continue IV vanco, aztreonam, cipro and acyclovir during hospitalization once patient is ready for discharge will de-escalate to PO abx and PO acyclovir Continue to monitor neuro status Patients friends want patient to go back to [facility], the patient is improving but has a ways to go till she will be well enough to travel Monitor closely Improving Order PT and OT consult (2) Anemia Assessment/Plan: Patients Hb was 12.2 on presentation and has decreased to 8.7 Maybe dilution but she needs to be worked up She does not have any signs of bleeding Check Iron panel, ferritin, B12, folate and haptoglobin Fecal occult blood test COntinue to monitor (3) Malignant neoplasm of appendix Assessment/Plan: 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 , 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 Patients AMS maybe secondary to meningeal spread but unlikely as she seems to be improving with abx Patients MRI was negative (4) Diabetes Qualifiers: Diabetes mellitus type: type 2 Assessment/Plan: Blood glucose elevated this am Change diet to diabetic Will stop IV steroids On home dose of lantus and SS insulin Monitor BG ACHS (5) Hypertension Qualifiers: Hypertension type: essential hypertension Qualified Code(s): I10 - Essential (primary) hypertension Assessment/Plan: On home meds BP still elevated Monitor (5) Prophylactic use of low molecular weight heparin for venous thromboembolism (VTE) Assessment/Plan: On lovenox - Current Meds Current Meds: Current Medications Generic Name Dose Route Start Last Admin Trade Name Freq PRN Reason Stop Dose Admin Enoxaparin Sodium 30 mg 03/12/17 09:00 03/13/17 12:11 Lovenox SUBQ 30 mg DAILY AGUSTINA Administration Hydrochlorothiazide 25 mg 03/13/17 09:00 03/13/17 12:11 Hydrodiuril PO 25 mg DAILY AGUSTINA Administration Ciprofloxacin 100 mls @ 100 mls/hr 03/10/17 05:00 03/13/17 04:32 Cipro 200 Mg/100 Ml IV 100 mls/hr Q12H AGUSTINA Administration Acetaminophen 100 mls @ 400 mls/hr 03/10/17 20:57 03/11/17 18:35 Ofirmev IV 400 mls/hr Q6HR PRN Administration PAIN Aztreonam 2 gm/ Sodium 100 mls @ 100 mls/hr 03/11/17 00:00 03/13/17 08:27 Chloride IV 100 mls/hr Q8H AGUSTINA Administration Vancomycin HCl 1 gm/ Sodium 250 mls @ 167 mls/hr 03/11/17 01:00 03/13/17 01:07 Chloride IV 167 mls/hr Q24H AGUSTINA Administration Acyclovir 500 mg/ Sodium 260 mls @ 250 mls/hr 03/11/17 14:00 03/13/17 05:39 Chloride IV 250 mls/hr TID AGSUTINA Administration Insulin Glargine 10 unit 03/11/17 09:00 03/13/17 08:39 Lantus Solostar SUBQ 10 unit DAILY AGUSTINA Administration Lorazepam 1 mg 03/10/17 20:58 03/13/17 05:51 Ativan Inj IVP 1 mg Q2HR PRN Administration Agitation Losartan Potassium 50 mg 03/13/17 09:00 03/13/17 12:11 Cozaar PO 50 mg DAILY AGUSTINA Administration Morphine Sulfate 0.5 mg 03/10/17 14:00 03/11/17 10:34 Morphine IVP 0.5 mg Q8H PRN Administration PAIN Morphine Sulfate 2 mg 03/11/17 08:00 03/12/17 02:12 Morphine IVP 2 mg Q2HR PRN Administration PAIN (Bisoprolol Fumarate 1 each 03/13/17 09:00 03/13/17 12:10 [Bisoprolol PO 1 each Fumarate] 10 Mg) Tab DAILY AGUSTINA Administration Polyethylene Glycol 17 gm 03/10/17 09:00 03/13/17 12:12 Miralax PO 17 gm DAILY AGUSTINA Administration Prochlorperazine Edisylate 10 mg 03/10/17 04:00 03/13/17 07:07 Compazine Inj IVP 10 mg Q6HR PRN Administration Nausea / Vomiting Sodium Chloride 10 ml 03/10/17 04:00 03/13/17 07:45 Normal Saline Flush 0.9% IVP 10 ml PRN PRN Administration NEEDED PER PROVIDER ORDERS Sodium Chloride 10 ml 03/10/17 06:00 03/13/17 05:31 Normal Saline Flush 0.9% IVP Not Given Q8HR AGUSTINA - Lab Result Lab results reviewed: Yes Fish Bone Diagrams: 03/13/17 05:33 03/13/17 05:33 - Diagnostic Imaging Results Diagnostic Imaging Results: Final report reviewed - Additional Planning Condition/Complexity: Guarded My Orders: My Active Orders 03/12/17 12:10 Initiate Hypoglycemia Protocol [RC] .protocol 03/12/17 16:30 Blood Glucose Checks - Eating [RC] 0800,1200,1700,2100 Initiate Hypoglycemia Protocol [RC] .protocol 03/12/17 Lunch Dysphagia Advanced Diet [DIET] 03/13/17 OCCULT BLOOD IN PAT. SINGLE [RAPID] Routine Evaluate and Treat OT [OT] Routine Evaluate and Treat PT [PT] Routine 03/13/17 07:37 Ondansetron Inj [Zofran Inj] 4 mg IVP Q4HR PRN 03/13/17 09:00 Losartan [Cozaar] 50 mg PO DAILY Patient Own Med [Patient Own Medication] 1 each PO DAILY hydroCHLOROthiazide [Hydrodiuril] 25 mg PO DAILY 03/13/17 11:29 Insulin Aspart [NovoLOG] 1 - 9 unit SUBQ 0800,1200,1700,2100 03/14/17 05:00 CBC - COMP BLD CT W/AUTO DIFF [HEME] DAILYLAB CMP [COMPREHENSIVE METABOLIC PANEL] [CHEM] DAILYLAB 03/15/17 05:00 CBC - COMP BLD CT W/AUTO DIFF [HEME] DAILYLAB CMP [COMPREHENSIVE METABOLIC PANEL] [CHEM] DAILYLAB 03/16/17 05:00 CBC - COMP BLD CT W/AUTO DIFF [HEME] DAILYLAB CMP [COMPREHENSIVE METABOLIC PANEL] [CHEM] DAILYLAB 03/17/17 05:00 CBC - COMP BLD CT W/AUTO DIFF [HEME] DAILYLAB CMP [COMPREHENSIVE METABOLIC PANEL] [CHEM] DAILYLAB Consult/Specialty: PT Plan Discussed with:: Patient, Other (Friends) Time Spent: 31-60 minutes Subjective - Subjective Patient Reports: Other (She is drowsy this morning but follows commands. She can tell me her name and answers questions appropriately but is still confused. She has regained her strength. She denies any fevers, chills or pain.) Objective Vital Signs: Vital Signs - 24 hr 03/12/17 03/13/17 03/13/17 15:20 01:29 11:46 Temperature 36.3 C L 36.5 C 36.7 C Heart Rate [ 90 108 H 116 H Brachial] Respiratory 20 18 18 Rate Blood Pressure 140/65 H 157/84 H 148/81 H [Right Brachial artery] O2 Saturation 93 95 Oxygen O2 Source Room air I&O (Last 24 Hrs): Intake and Output Totals x24h 03/11/17 03/12/17 03/13/17 23:59 23:59 23:59 Intake Total 1535 2909 831 Output Total 150 Balance 1535 2759 831 General: Alert, Cooperative, Other (drowsy, oriented x 1) HEENT: Atraumatic, PERRLA, EOMI, Mucous membr. moist/pink Neck: Supple, No JVD, No thyromegaly, +2 carotid pulse wo bruit, No LAD Lymphatic: no adenopathy Neuro: Alert, Non Focal, CN 2-12 Grossly Intact Cardiovascular: Normal S1, Normal S2, No murmurs, Other (tachycardic) Respiratory: Chest non-tender, No respiratory distress, Breath sounds nml Abdomen: Normal bowel sounds, Soft, No tenderness, No hepatospenomegaly Extremities: No clubbing, No cyanosis, No edema, Normal pulses Skin: No rashes, No breakdown - Results Results: Laboratory Results WBC 8.6 x10^3/uL (4.8-10.8) 03/13/17 05:33 RBC 2.64 10^6/uL (4.20-5.40) L 03/13/17 05:33 Hgb 8.7 g/dL (12.0-16.0) L 03/13/17 05:33 Hct 25.3 % (37.0-47.0) L 03/13/17 05:33 MCV 95.8 fL (81.0-99.0) 03/13/17 05:33 MCH 33.0 pg (27.0-31.0) H 03/13/17 05:33 MCHC 34.4 g/dL (32.0-36.0) 03/13/17 05:33 RDW 13.7 % (12.0-15.0) 03/13/17 05:33 Plt Count 211 10^3/uL (130-450) 03/13/17 05:33 MPV 7.6 fL (7.9-10.8) L 03/13/17 05:33 Neut # Not Reportable 03/13/17 05:33 Lymph # Not Reportable 03/13/17 05:33 Grant # Not Reportable 03/13/17 05:33 Eos # Not Reportable 03/13/17 05:33 Baso # Not Reportable 03/13/17 05:33 Absolute Nucleated RBC Not Reportable 03/13/17 05:33 Total Counted 100 03/13/17 05:33 Band Neuts % (Manual) 4 % (0-10) 03/13/17 05:33 Neutrophils # (Manual) 7.9 10^3/uL (1.5-6.6) H 03/13/17 05:33 Lymphocytes # (Manual) 0.3 10^3/uL (1.5-3.5) L 03/13/17 05:33 Monocytes # (Manual) 0.4 10^3/uL (0.0-1.0) 03/13/17 05:33 Nucleated RBCs Not Reportable 03/13/17 05:33 Differential Comment MANUAL DIFFERENTIAL 03/13/17 05:33 Platelet Estimate NORMAL (130-450,000) (NORMAL) 03/13/17 05:33 RBC Morph Micro Appear NORMAL APPEARANCE (NORMAL) 03/13/17 05:33 PT 11.4 secs (9.9-12.6) 03/10/17 01:25 INR 1.0 (0.8-1.2) 03/10/17 01:25 APTT 26.9 secs (24.9-33.3) 03/10/17 01:25 Sodium 135 mmol/L (135-145) 03/13/17 05:33 Potassium 4.0 mmol/L (3.5-5.0) 03/13/17 05:33 Chloride 103 mmol/L (101-111) 03/13/17 05:33 Carbon Dioxide 24 mmol/L (21-32) 03/13/17 05:33 Anion Gap 8.0 (6-13) 03/13/17 05:33 BUN 31 mg/dL (6-20) H 03/13/17 05:33 Creatinine 0.5 mg/dL (0.4-1.0) 03/13/17 05:33 Estimated GFR (MDRD) 124 (>89) 03/13/17 05:33 Glucose 348 mg/dL (70-100) H 03/13/17 05:33 POC Whole Bld Glucose 324 mg/dL (70 - 100) H 03/13/17 11:41 Glycated Hemoglobin 8.7 % (4.6-6.2) H 03/10/17 05:59 Estim Average Glucose 203 (70-100) H 03/10/17 05:59 Calcium 8.2 mg/dL (8.5-10.3) L 03/13/17 05:33 Phosphorus 3.2 mg/dL (2.5-4.6) 03/10/17 01:25 Magnesium 1.7 mg/dL (1.7-2.8) 03/10/17 01:25 Iron 53 ug/dL (28-170) 03/13/17 05:33 TIBC 179 ug/dL (250-450) L 03/13/17 05:33 % Saturation 30 % (20-50) 03/13/17 05:33 Transferrin 128 mg/dL (192-382) L 03/13/17 05:33 Ferritin 556.1 ng/mL (11.0-306.8) H 03/13/17 05:33 Total Bilirubin 0.8 mg/dL (0.2-1.0) 03/13/17 05:33 AST 13 IU/L (10-42) 03/13/17 05:33 ALT 13 IU/L (10-60) 03/13/17 05:33 Alkaline Phosphatase 51 IU/L (42-121) 03/13/17 05:33 Ammonia 13.6 umol/L (7-35) 03/11/17 07:58 Troponin I < 0.04 ng/mL (<0.49) 03/10/17 01:25 B-Natriuretic Peptide 105 pg/mL (5-100) H 03/10/17 01:25 Total Protein 6.0 g/dL (6.7-8.2) L 03/13/17 05:33 Albumin 2.8 g/dL (3.2-5.5) L 03/13/17 05:33 Globulin 3.2 g/dL (2.1-4.2) 03/13/17 05:33 Albumin/Globulin Ratio 0.9 (1.0-2.2) L 03/13/17 05:33 Triglycerides 86 mg/dL (-149) 03/11/17 06:08 Cholesterol 179 mg/dL (-199) 03/11/17 06:08 LDL Cholesterol, Calc 105 mg/dL (-129) 03/11/17 06:08 VLDL Cholesterol 17 mg/dL 03/11/17 06:08 HDL Cholesterol 57 mg/dL (60-) L 03/11/17 06:08 LDL/HDL Ratio 1.8 (<4.4) 03/11/17 06:08 Cholesterol/HDL Ratio 3.1 (<4.4) 03/11/17 06:08 Lipase 21 U/L (22-51) L 03/10/17 01:25 Vitamin B12 295 pg/mL (180-914) 03/13/17 05:33 Folate 12.31 ng/mL (5.90 - >24.8) 03/13/17 05:33 TSH 0.78 uIU/mL (0.34-5.60) 03/11/17 07:58 Urine Color YELLOW 03/10/17 02:50 Urine Clarity CLEAR (CLEAR) 03/10/17 02:50 Urine pH 7.5 PH (5.0-7.5) 03/10/17 02:50 Ur Specific [place] 1.015 (1.002-1.030) 03/10/17 02:50 Urine Protein TRACE mg/dL (NEGATIVE) 03/10/17 02:50 Urine Glucose (UA) 500 mg/dL (NEGATIVE) H 03/10/17 02:50 Urine Ketones TRACE mg/dL (NEGATIVE) 03/10/17 02:50 Urine Occult Blood TRACE-INTA (NEGATIVE) 03/10/17 02:50 Urine Nitrite NEGATIVE (NEGATIVE) 03/10/17 02:50 Urine Bilirubin NEGATIVE (NEGATIVE) 03/10/17 02:50 Urine Urobilinogen 0.2 (NORMAL) E.U./dL (NORMAL) 03/10/17 02:50 Ur Leukocyte Esterase NEGATIVE (NEGATIVE) 03/10/17 02:50 Ur Microscopic Review NOT INDICATED 03/10/17 02:50 Urine Culture Comments NOT INDICATED 03/10/17 02:50 Urine Opiates Screen NEGATIVE (NEGATIVE) 03/10/17 02:50 Ur Oxycodone Screen NEGATIVE (NEGATIVE) 03/10/17 02:50 Urine Methadone Screen NEGATIVE (NEGATIVE) 03/10/17 02:50 Ur Propoxyphene Screen NEGATIVE (NEGATIVE) 03/10/17 02:50 Acetaminophen < 10 ug/mL (10-30) L 03/10/17 01:25 Ur Barbiturates Screen NEGATIVE (NEGATIVE) 03/10/17 02:50 Ur Tricyclics Screen NEGATIVE (NEGATIVE) 03/10/17 02:50 Ur Phencyclidine Scrn NEGATIVE (NEGATIVE) 03/10/17 02:50 Ur Amphetamine Screen NEGATIVE (NEGATIVE) 03/10/17 02:50 U Methamphetamines Scrn NEGATIVE (NEGATIVE) 03/10/17 02:50 U Benzodiazepines Scrn NEGATIVE (NEGATIVE) 03/10/17 02:50 Urine Cocaine Screen NEGATIVE (NEGATIVE) 03/10/17 02:50 U Cannabinoids Screen NEGATIVE (NEGATIVE) 03/10/17 02:50
[2017-03-13] MEDS: ONDANSETRON 4 MG/2 ML VIAL IVP PRN (12:48)
[2017-03-13] MEDS ORDERED: HALOPERIDOL 5 MG/ML VIAL IM SCH (17:54)
[2017-03-14] MEDS: AZTREONAM 2 GM in SODIUM CHLORIDE 0.9% MINIBAG 100 ML IV SCH ×3 (00:55→19:55)
[2017-03-14 01:05] LABS: BASOPHILS % (AUTO) 0.1 %; EOSINOPHILS % (AUTO) 0.1 %; LYMPHOCYTES # (AUTO) 1.6 10^3/uL (1.5-3.5); LYMPHOCYTES % (AUTO) 12.8 %; MEAN CORPUSCULAR HEMOGLOBIN 32.1 pg (27.0-31.0); MEAN CORPUSCULAR HGB CONC 34.1 g/dL (32.0-36.0); MEAN CORPUSCULAR VOLUME 94.1 fL (81.0-99.0); MEAN PLATELET VOLUME 7.3 fL (7.9-10.8); MONOCYTES # (AUTO) 1.1 10^3/uL (0.0-1.0); MONOCYTES % (AUTO) 9.4 %; NEUTROPHILS # (AUTO) 9.4 10^3/uL (1.5-6.6); NEUTROPHILS % (AUTO) 77.6 %; RED BLOOD COUNT 1.65 10^6/uL (4.20-5.40); RED CELL DISTRIBUTION WIDTH 13.7 % (12.0-15.0); UNCORRECTED WHITE BLOOD COUNT 12.1 x10^3/uL; WHITE BLOOD COUNT 12.1 x10^3/uL (4.8-10.8)
[2017-03-14 01:07] LABS: HCT - HEMATOCRIT 15.5 % (37.0-47.0); HGB - HEMOGLOBIN 5.3 g/dL (12.0-16.0)
[2017-03-14 01:12] LABS: ALBUMIN/GLOBULIN RATIO 0.9 (1.0-2.2); BILIRUBIN,TOTAL 0.4 mg/dL (0.2-1.0); CALCIUM 7.9 mg/dL (8.5-10.3); CREATININE 0.5 mg/dL (0.4-1.0); POTASSIUM 3.3 mmol/L (3.5-5.0); TOTAL PROTEIN 5.4 g/dL (6.7-8.2)
[2017-03-14 01:50] LABS: PLATELET ESTIMATE, MANUAL NORMAL (130-450,000) (NORMAL); PLATELET MORPHOLOGY NORMAL APPEARANCE (NORMAL)
[2017-03-14] MEDS: VANCOMYCIN INJ 1 GM in SODIUM CHLORIDE 0.9% 250 ML IV SCH (02:02)
[2017-03-14] MEDS ORDERED: ACETAMINOPHEN 325 MG TABLET PO SCH (02:11)
[2017-03-14] MEDS ORDERED: diphenhydrAMINE INJ 50 MG/ML VIAL IVP SCH (02:12)
[2017-03-14] MEDS: SODIUM CHLORIDE 0.9% 500 ML IV ONE ×2 (06:10→08:44)
[2017-03-14] MEDS: CIPROFLOXACIN 200 MG/100 ML 100 ML IV SCH ×2 (06:11→18:17)
[2017-03-14] MEDS: SODIUM CHLORIDE FLUSH 0.9% 10 ML SYRINGE IVP SCH ×3 (06:12→16:03)
[2017-03-14] MEDS: SODIUM CHLORIDE FLUSH 0.9% 10 ML SYRINGE IVP PRN ×7 (06:12→21:40)
[2017-03-14] MEDS: ACYCLOVIR INJ 500 MG in SODIUM CHLORIDE 0.9% 250 ML IV SCH ×2 (08:46→16:19)
[2017-03-14] MEDS: POTASSIUM CHLOR 10 MEQ/100 ML 100 ML IV SCH ×2 (08:46→10:46)
[2017-03-14] MEDS ORDERED: SODIUM CHLORIDE 0.9% 250 ML IV ONE ×2 (09:08→10:44)
[2017-03-14] MEDS ORDERED: SODIUM CHLORIDE 0.9% 100ML 100 ML IV ONE (09:08)
[2017-03-14] MEDS: INSULIN GLARGINE 300 UNIT/3 ML PEN SUBQ SCH (09:26)
[2017-03-14] MEDS: ENOXAPARIN 40 MG/0.4 ML SYRINGE SUBQ SCH (09:27)
[2017-03-14] MEDS: INSULIN ASPART 300 UNIT/3 ML PEN SUBQ SCH ×4 (09:27→23:32)
[2017-03-14] MEDS: hydroCHLOROthiazide 25 MG TABLET PO SCH (09:28)
[2017-03-14] MEDS: LOSARTAN 50 MG TABLET PO SCH (09:28)
[2017-03-14] MEDS: POLYETHYLENE GLYCOL 3350 17 GM PACKET PO SCH (09:28)
[2017-03-14] MEDS: BISOPROLOL FUMARATE 10 MG PO SCH (09:30)
[2017-03-14] MEDS: VANCOMYCIN 1.5 GM/NS 500 ML 500 ML IV SCH (13:08)
[2017-03-14] MEDS: MORPHINE 2 MG/ML SYRINGE IVP PRN (16:03)
--- NOTE | 2017-03-14 17:18 | PROVIDER PROGRESS NOTE ---
Assessment/Plan - Problem List (1) Meningitis Assessment/Plan: Patient presented with acute change in mentation at dinner just prior to arrival According to friends she was acting strange and became confused later her voice became garbled On presentation she was persevering and repeatedly would say 'ok' to all questions She did not have any obvious motor deficits on presentation Patients symptoms progressed very rapidly within hours she began displaying right chantal-neglect and was non verbal Patient lives in [facility] and has been getting treatment for Appendiceal mucinous cancer and recently developed some garbled speech, seizures and neurological deficits for which she was hospitalized and underwent extensive workup including MRI and LP which seem to have been inconclusive but most likely thought to have meningeal spread of cancer Patient underwent MRI which did not show any acute intracranial abnormality Patient does not appear to have had a stroke The most likely cause for her altered mental status is meningeal spread of the cancer vs meningitis After speaking with patients friends and family decision was made not to do another LP as patient required 6 pokes to get LP in [facility] We will treat empirically from meningitis and encephalitis and monitor the patient Patient has had significant improvement since starting abx over the last 3 days as she is now able to verbalize and is A&Ox2, she is moving all extremities and has regained strength and is able to follow commands, she is much more calm today. She passed a swallow study and is now on a diabetic diet Patient was febrile 2 days ago and had an elevated WBC yesterday but has been afebrile since and WBC improved This appears to have been meningitis given the fevers, acute altered mental status, elevated WBCs, negative CT/MRI and improvement on antibiotics. Blood cx are negative Plan: Continue IV vanco, aztreonam, cipro and acyclovir for at least 7 days IV then we can consider changing to PO but would still treat for total of 14 to 21 days with antibiotics Patient continues to have improvement in her mental status Patients friends want patient to go back to [facility], the patient is improving but has a ways to go till she will be well enough to travel Monitor closely Improving PT and OT seeing patient (2) Anemia Assessment/Plan: Patients Hb was 12.2 on presentation and has decreased to 5.3 this morning She does not have any signs of bleeding Iron panel, ferritin, B12, folate and haptoglobin ordered and patient does not appear to have iron deficiency, B12 or folate deficiency Patient likely has DIC we will check LDH, INR, PT, PTT today this is likely due to her infection with meningitis We will transfuse 3 units PRBCs today and continue to monitor her Hb Continue to replete deficient blood products She could also have hemolytic anemia given her history of mucinoid cancer but the patient has normal Bilirubin and haptoglobin is pending (3) Malignant neoplasm of appendix Assessment/Plan: 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 , 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 Patients AMS maybe secondary to meningeal spread but unlikely as she seems to be improving with abx Patients MRI was negative (4) Diabetes Qualifiers: Diabetes mellitus type: type 2 Assessment/Plan: Blood glucose improving Changed diet to diabetic Stopped IV steroids On home dose of lantus 20 units and SS insulin Monitor BG ACHS (5) Hypertension Qualifiers: Hypertension type: essential hypertension Qualified Code(s): I10 - Essential (primary) hypertension Assessment/Plan: On home meds BP improved Monitor (6) Prophylactic use of low molecular weight heparin for venous thromboembolism (VTE) Assessment/Plan: On lovenox - Current Meds Current Meds: Current Medications Generic Name Dose Route Start Last Admin Trade Name Freq PRN Reason Stop Dose Admin Enoxaparin Sodium 30 mg 03/12/17 09:00 03/14/17 09:27 Lovenox SUBQ 30 mg DAILY AGUSTINA Administration Hydrochlorothiazide 25 mg 03/13/17 09:00 03/14/17 09:28 Hydrodiuril PO 25 mg DAILY AGUSTINA Administration Ciprofloxacin 100 mls @ 100 mls/hr 03/10/17 05:00 03/14/17 06:11 Cipro 200 Mg/100 Ml IV 100 mls/hr Q12H AGUSTINA Administration Acetaminophen 100 mls @ 400 mls/hr 03/10/17 20:57 03/11/17 18:35 Ofirmev IV 400 mls/hr Q6HR PRN Administration PAIN Acyclovir 500 mg/ Sodium 260 mls @ 250 mls/hr 03/14/17 08:00 03/14/17 16:19 Chloride IV 250 mls/hr Q8H AGUSTINA Administration Aztreonam 2 gm/ Sodium 100 mls @ 100 mls/hr 03/14/17 10:00 03/14/17 10:47 Chloride IV 100 mls/hr Q8H AGUSTINA Administration Vancomycin/Sodium Chloride 500 mls @ 300 mls/hr 03/14/17 12:00 03/14/17 13:08 Vanco/Sod Chloride 0.9% IV 300 mls/hr Q24H AGUSTINA Administration Insulin Aspart 1 - 9 unit 03/13/17 11:29 03/14/17 13:07 Novolog SUBQ 4 unit 0800,1200,1700,2100 AGUSTINA Administration Protocol Insulin Glargine 20 unit 03/14/17 09:00 03/14/17 09:26 Lantus Solostar SUBQ 20 unit DAILY AGUSTINA Administration Lorazepam 1 mg 03/10/17 20:58 03/13/17 15:07 Ativan Inj IVP 1 mg Q2HR PRN Administration Agitation Losartan Potassium 50 mg 03/13/17 09:00 03/14/17 09:28 Cozaar PO 50 mg DAILY AGUSTINA Administration Morphine Sulfate 0.5 mg 03/10/17 14:00 03/14/17 16:03 Morphine IVP 0.5 mg Q8H PRN Administration PAIN Morphine Sulfate 2 mg 03/11/17 08:00 03/12/17 02:12 Morphine IVP 2 mg Q2HR PRN Administration PAIN Ondansetron HCl 4 mg 03/13/17 07:37 03/13/17 12:48 Zofran Inj IVP 4 mg Q4HR PRN Administration Nausea / Vomiting (Bisoprolol Fumarate 1 each 03/13/17 09:00 03/14/17 09:30 [Bisoprolol PO 1 each Fumarate] 10 Mg) Tab DAILY AGUSTINA Administration Polyethylene Glycol 17 gm 03/10/17 09:00 03/14/17 09:28 Miralax PO Not Given DAILY AGUSTINA Prochlorperazine Edisylate 10 mg 03/10/17 04:00 03/13/17 17:28 Compazine Inj IVP 10 mg Q6HR PRN Administration Nausea / Vomiting Sodium Chloride 10 ml 03/10/17 04:00 03/14/17 16:03 Normal Saline Flush 0.9% IVP 10 ml PRN PRN Administration NEEDED PER PROVIDER ORDERS Sodium Chloride 10 ml 03/10/17 06:00 03/14/17 16:03 Normal Saline Flush 0.9% IVP 10 ml Q8HR AGUSTINA Administration - Lab Result Lab results reviewed: Yes Fish Bone Diagrams: 03/14/17 00:47 03/14/17 00:47 - Diagnostic Imaging Results Diagnostic Imaging Results: Final report reviewed - Additional Planning Condition/Complexity: Guarded My Orders: My Active Orders 03/14/17 05:00 FIBRINOGEN [COAG] Routine HAPTOGLOBIN [REFLAB] Routine LDH - LACTATE DEHYDROGENASE [CHEM] Routine PT WITH INR [COAG] Routine 03/14/17 08:00 Acyclovir Inj [Zovirax Inj] 500 mg Sodium Chloride 0.9% [Normal Saline 0.9%] 250 ml IV Q8H 03/14/17 09:00 Insulin Glargine [Lantus Solostar] 20 unit SUBQ DAILY 03/14/17 Dinner Dysphagia Advanced Diet [DIET] 03/15/17 05:00 CBC - COMP BLD CT W/AUTO DIFF [HEME] DAILYLAB CMP [COMPREHENSIVE METABOLIC PANEL] [CHEM] DAILYLAB 03/16/17 05:00 CBC - COMP BLD CT W/AUTO DIFF [HEME] DAILYLAB CMP [COMPREHENSIVE METABOLIC PANEL] [CHEM] DAILYLAB 03/17/17 05:00 CBC - COMP BLD CT W/AUTO DIFF [HEME] DAILYLAB CMP [COMPREHENSIVE METABOLIC PANEL] [CHEM] DAILYLAB Consult/Specialty: OT, PT Plan Discussed with:: Patient, Other (friends) Time Spent: 31-60 minutes Subjective - Subjective Patient Reports: Feeling Better, Resting Comfortably (The patient denies any complaints, fevers, chills, pain. She is much more alert and is answering questions appropriately .) Nursing Reports: No Complaints Objective Vital Signs: Vital Signs - 24 hr 03/14/17 03/14/17 03/14/17 01:42 07:44 16:30 Temperature 36.6 C 37.0 C 37.1 C Heart Rate [ 100 81 83 Brachial] Respiratory 16 16 16 Rate Blood Pressure 137/68 H 153/60 H 169/71 H [Right Brachial artery] O2 Saturation 98 98 99 Oxygen O2 Source [Without Activity] Room air O2 Source Room air I&O (Last 24 Hrs): Intake and Output Totals x24h 03/12/17 03/13/17 03/14/17 23:59 23:59 23:59 Intake Total 2909 2306 1770 Output Total 574 284 8399 Balance 2759 1506 -580 General: Alert, Cooperative, No acute distress HEENT: Atraumatic, PERRLA, EOMI, Mucous membr. moist/pink, Other (Conjunctival pallor) Neck: Supple, No JVD, No thyromegaly, +2 carotid pulse wo bruit, No LAD Lymphatic: no adenopathy Neuro: Alert, Non Focal, CN 2-12 Grossly Intact, Other (Oriented x2) Cardiovascular: Regular rate, Normal S1, Normal S2, No murmurs Respiratory: Chest non-tender, No respiratory distress, Breath sounds nml Abdomen: Normal bowel sounds, Soft, No tenderness, No hepatospenomegaly Extremities: No clubbing, No cyanosis, No edema, Normal pulses, No tenderness/ swelling Skin: No rashes, No breakdown, No significant lesion - Results Results: Laboratory Results WBC 12.1 x10^3/uL (4.8-10.8) H 03/14/17 00:47 RBC 1.65 10^6/uL (4.20-5.40) L 03/14/17 00:47 Hgb 5.3 g/dL (12.0-16.0) L* 03/14/17 00:47 Hct 15.5 % (37.0-47.0) L* 03/14/17 00:47 MCV 94.1 fL (81.0-99.0) 03/14/17 00:47 MCH 32.1 pg (27.0-31.0) H 03/14/17 00:47 MCHC 34.1 g/dL (32.0-36.0) 03/14/17 00:47 RDW 13.7 % (12.0-15.0) 03/14/17 00:47 Plt Count 251 10^3/uL (130-450) 03/14/17 00:47 MPV 7.3 fL (7.9-10.8) L 03/14/17 00:47 Neut # 9.4 10^3/uL (1.5-6.6) H 03/14/17 00:47 Lymph # 1.6 10^3/uL (1.5-3.5) 03/14/17 00:47 [place]ter[place] # 1.1 10^3/uL (0.0-1.0) H 03/14/17 00:47 Eos # 0.0 10^3/uL (0.0-0.7) 03/14/17 00:47 Baso # 0.0 10^3/uL (0.0-0.1) 03/14/17 00:47 Absolute Nucleated RBC 0.00 x10^3/uL 03/14/17 00:47 Total Counted 100 03/13/17 05:33 Band Neuts % (Manual) 4 % (0-10) 03/13/17 05:33 Neutrophils # (Manual) 7.9 10^3/uL (1.5-6.6) H 03/13/17 05:33 Lymphocytes # (Manual) 0.3 10^3/uL (1.5-3.5) L 03/13/17 05:33 Monocytes # (Manual) 0.4 10^3/uL (0.0-1.0) 03/13/17 05:33 Nucleated RBCs 0.0 /100WBC 03/14/17 00:47 Differential Comment MANUAL DIFFERENTIAL 03/13/17 05:33 Manual Slide Review Indicated 03/14/17 00:47 Platelet Estimate NORMAL (130-450,000) (NORMAL) 03/14/17 00:47 Platelet Morphology NORMAL APPEARANCE (NORMAL) 03/14/17 00:47 RBC Morph Micro Appear NORMAL APPEARANCE (NORMAL) 03/14/17 00:47 PT 11.4 secs (9.9-12.6) 03/10/17 01:25 INR 1.0 (0.8-1.2) 03/10/17 01:25 APTT 26.9 secs (24.9-33.3) 03/10/17 01:25 Sodium 138 mmol/L (135-145) 03/14/17 00:47 Potassium 3.3 mmol/L (3.5-5.0) L 03/14/17 00:47 Chloride 104 mmol/L (101-111) 03/14/17 00:47 Carbon Dioxide 28 mmol/L (21-32) 03/14/17 00:47 Anion Gap 6.0 (6-13) 03/14/17 00:47 BUN 32 mg/dL (6-20) H 03/14/17 00:47 Creatinine 0.5 mg/dL (0.4-1.0) 03/14/17 00:47 Estimated GFR (MDRD) 124 (>89) 03/14/17 00:47 Glucose 212 mg/dL (70-100) H 03/14/17 00:47 POC Whole Bld Glucose 158 mg/dL (70 - 100) H 03/14/17 16:42 Glycated Hemoglobin 8.7 % (4.6-6.2) H 03/10/17 05:59 Estim Average Glucose 203 (70-100) H 03/10/17 05:59 Calcium 7.9 mg/dL (8.5-10.3) L 03/14/17 00:47 Phosphorus 3.2 mg/dL (2.5-4.6) 03/10/17 01:25 Magnesium 1.7 mg/dL (1.7-2.8) 03/10/17 01:25 Iron 53 ug/dL (28-170) 03/13/17 05:33 TIBC 179 ug/dL (250-450) L 03/13/17 05:33 % Saturation 30 % (20-50) 03/13/17 05:33 Transferrin 128 mg/dL (192-382) L 03/13/17 05:33 Ferritin 556.1 ng/mL (11.0-306.8) H 03/13/17 05:33 Total Bilirubin 0.4 mg/dL (0.2-1.0) 03/14/17 00:47 AST 18 IU/L (10-42) 03/14/17 00:47 ALT 11 IU/L (10-60) 03/14/17 00:47 Alkaline Phosphatase 38 IU/L (42-121) L 03/14/17 00:47 Ammonia 13.6 umol/L (7-35) 03/11/17 07:58 Troponin I < 0.04 ng/mL (<0.49) 03/10/17 01:25 B-Natriuretic Peptide 105 pg/mL (5-100) H 03/10/17 01:25 Total Protein 5.4 g/dL (6.7-8.2) L 03/14/17 00:47 Albumin 2.6 g/dL (3.2-5.5) L 03/14/17 00:47 Globulin 2.8 g/dL (2.1-4.2) 03/14/17 00:47 Albumin/Globulin Ratio 0.9 (1.0-2.2) L 03/14/17 00:47 Triglycerides 86 mg/dL (-149) 03/11/17 06:08 Cholesterol 179 mg/dL (-199) 03/11/17 06:08 LDL Cholesterol, Calc 105 mg/dL (-129) 03/11/17 06:08 VLDL Cholesterol 17 mg/dL 03/11/17 06:08 HDL Cholesterol 57 mg/dL (60-) L 03/11/17 06:08 LDL/HDL Ratio 1.8 (<4.4) 03/11/17 06:08 Cholesterol/HDL Ratio 3.1 (<4.4) 03/11/17 06:08 Lipase 21 U/L (22-51) L 03/10/17 01:25 Vitamin B12 295 pg/mL (180-914) 03/13/17 05:33 Folate 12.31 ng/mL (5.90 - >24.8) 03/13/17 05:33 TSH 0.78 uIU/mL (0.34-5.60) 03/11/17 07:58 Urine Color YELLOW 03/10/17 02:50 Urine Clarity CLEAR (CLEAR) 03/10/17 02:50 Urine pH 7.5 PH (5.0-7.5) 03/10/17 02:50 Ur Specific [place] 1.015 (1.002-1.030) 03/10/17 02:50 Urine Protein TRACE mg/dL (NEGATIVE) 03/10/17 02:50 Urine Glucose (UA) 500 mg/dL (NEGATIVE) H 03/10/17 02:50 Urine Ketones TRACE mg/dL (NEGATIVE) 03/10/17 02:50 Urine Occult Blood TRACE-INTA (NEGATIVE) 03/10/17 02:50 Urine Nitrite NEGATIVE (NEGATIVE) 03/10/17 02:50 Urine Bilirubin NEGATIVE (NEGATIVE) 03/10/17 02:50 Urine Urobilinogen 0.2 (NORMAL) E.U./dL (NORMAL) 03/10/17 02:50 Ur Leukocyte Esterase NEGATIVE (NEGATIVE) 03/10/17 02:50 Ur Microscopic Review NOT INDICATED 03/10/17 02:50 Urine Culture Comments NOT INDICATED 03/10/17 02:50 Last Dose Date UNK 03/14/17 00:47 Last Dose Time UNK 03/14/17 00:47 Vancomycin Trough 6.8 ug/mL (5.0-15.0) 03/14/17 00:47 Urine Opiates Screen NEGATIVE (NEGATIVE) 03/10/17 02:50 Ur Oxycodone Screen NEGATIVE (NEGATIVE) 03/10/17 02:50 Urine Methadone Screen NEGATIVE (NEGATIVE) 03/10/17 02:50 Ur Propoxyphene Screen NEGATIVE (NEGATIVE) 03/10/17 02:50 Acetaminophen < 10 ug/mL (10-30) L 03/10/17 01:25 Ur Barbiturates Screen NEGATIVE (NEGATIVE) 03/10/17 02:50 Ur Tricyclics Screen NEGATIVE (NEGATIVE) 03/10/17 02:50 Ur Phencyclidine Scrn NEGATIVE (NEGATIVE) 03/10/17 02:50 Ur Amphetamine Screen NEGATIVE (NEGATIVE) 03/10/17 02:50 U Methamphetamines Scrn NEGATIVE (NEGATIVE) 03/10/17 02:50 U Benzodiazepines Scrn NEGATIVE (NEGATIVE) 03/10/17 02:50 Urine Cocaine Screen NEGATIVE (NEGATIVE) 03/10/17 02:50 U Cannabinoids Screen NEGATIVE (NEGATIVE) 03/10/17 02:50 Blood Type A POSITIVE 03/14/17 02:27 Blood Type Recheck A POSITIVE 03/14/17 03:00 Antibody Screen NEGATIVE 03/14/17 02:27 Crossmatch IS Only See Detail 03/14/17 02:27
[2017-03-15] MEDS: ACYCLOVIR INJ 500 MG in SODIUM CHLORIDE 0.9% 250 ML IV SCH ×4 (00:53→23:53)
[2017-03-15] MEDS: SODIUM CHLORIDE FLUSH 0.9% 10 ML SYRINGE IVP SCH ×3 (02:53→05:51)
[2017-03-15] MEDS: AZTREONAM 2 GM in SODIUM CHLORIDE 0.9% MINIBAG 100 ML IV SCH ×3 (02:53→18:11)
[2017-03-15] MEDS: CIPROFLOXACIN 200 MG/100 ML 100 ML IV SCH ×2 (05:26→17:18)
[2017-03-15 06:14] LABS: BASOPHILS % (AUTO) 0.2 %; EOSINOPHILS # (AUTO) 0.2 10^3/uL (0.0-0.7); HCT - HEMATOCRIT 33.6 % (37.0-47.0); HGB - HEMOGLOBIN 11.5 g/dL (12.0-16.0); LYMPHOCYTES # (AUTO) 1.5 10^3/uL (1.5-3.5); LYMPHOCYTES % (AUTO) 9.8 %; MEAN CORPUSCULAR HEMOGLOBIN 29.4 pg (27.0-31.0); MEAN CORPUSCULAR HGB CONC 34.1 g/dL (32.0-36.0); MEAN CORPUSCULAR VOLUME 86.2 fL (81.0-99.0); MEAN PLATELET VOLUME 6.9 fL (7.9-10.8); MONOCYTES # (AUTO) 1.3 10^3/uL (0.0-1.0); MONOCYTES % (AUTO) 8.1 %; NEUTROPHILS # (AUTO) 12.6 10^3/uL (1.5-6.6); NEUTROPHILS % (AUTO) 80.9 %; RED CELL DISTRIBUTION WIDTH 18.7 % (12.0-15.0); UNCORRECTED WHITE BLOOD COUNT 15.5 x10^3/uL; WHITE BLOOD COUNT 15.5 x10^3/uL (4.8-10.8)
[2017-03-15 06:29] LABS: ALBUMIN/GLOBULIN RATIO 1.1 (1.0-2.2); BILIRUBIN,TOTAL 0.6 mg/dL (0.2-1.0); CALCIUM 8.5 mg/dL (8.5-10.3); CREATININE 0.3 mg/dL (0.4-1.0); POTASSIUM 2.8 mmol/L (3.5-5.0); TOTAL PROTEIN 6.2 g/dL (6.7-8.2)
[2017-03-15] MEDS: SODIUM CHLORIDE FLUSH 0.9% 10 ML SYRINGE IVP PRN (06:53)
[2017-03-15 07:03] LABS: INR 1.1 (0.8-1.2); PT - PROTHROMBIN TIME 12.1 secs (9.9-12.6)
[2017-03-15] MEDS: LOSARTAN 50 MG TABLET PO SCH (10:27)
[2017-03-15] MEDS: hydroCHLOROthiazide 25 MG TABLET PO SCH (10:27)
[2017-03-15] MEDS: ENOXAPARIN 40 MG/0.4 ML SYRINGE SUBQ SCH (10:27)
[2017-03-15] MEDS: INSULIN ASPART 300 UNIT/3 ML PEN SUBQ SCH ×4 (10:29→21:20)
[2017-03-15] MEDS: INSULIN GLARGINE 300 UNIT/3 ML PEN SUBQ SCH (10:30)
[2017-03-15] MEDS: POLYETHYLENE GLYCOL 3350 17 GM PACKET PO SCH (10:39)
[2017-03-15] MEDS: BISOPROLOL FUMARATE 10 MG PO SCH (10:40)
[2017-03-15] MEDS ORDERED: POTASSIUM CHLOR 10 MEQ/100 ML 100 ML IV SCH (11:00)
[2017-03-15] MEDS ORDERED: POTASSIUM CHLORIDE INJ 40 MEQ in SODIUM CHLORIDE 0.9% 480 ML IV ONE ×2 (11:10→12:00)
[2017-03-15] MEDS: VANCOMYCIN 1.5 GM/NS 500 ML 500 ML IV SCH (12:16)
[2017-03-15] MEDS: POTASSIUM CHLORIDE 20 MEQ TABLET PO SCH (12:40)
--- NOTE | 2017-03-15 13:16 | PROVIDER PROGRESS NOTE ---
Assessment/Plan - Problem List (1) Meningitis Assessment/Plan: The patient is only oriented to person. Continue plan for iv vanco, aztreonam and acyclovir for 7 days, then po antibiotics for 14-21 additional days. (2) Anemia Qualifiers: Anemia type: iron deficiency Assessment/Plan: Acute iron deficiency is suspected because, at approx. noon, pt a very large BM , maroon and with large clots (which I witnessed). GI bleed is probably the etiology of the marked anemia requiring PRBC transfusion yesterday. Will follow H/H, will change diet to clears then ask for surgery consult for colonoscopy. Discussed with Dr Gunn. (3) Malignant neoplasm of appendix Assessment/Plan: Concern of new tumor site or new met causing the GI bleed. Will await for surg consult and W/U for GI bleed. (4) Diabetes Qualifiers: Diabetes mellitus type: type 2 Assessment/Plan: Continue plan for diabetic diet and Insulin coverage. (5) Hypertension Qualifiers: Hypertension type: essential hypertension Qualified Code(s): I10 - Essential (primary) hypertension Assessment/Plan: Continue BP meds and monitoring. (6) Hypokalemia Assessment/Plan: Likely due to poor intake. Will replace and follow lab - Current Meds Current Meds: Current Medications Generic Name Dose Route Start Last Admin Trade Name Freq PRN Reason Stop Dose Admin Enoxaparin Sodium 30 mg 03/12/17 09:00 03/15/17 10:27 Lovenox SUBQ 30 mg DAILY AGUSTINA Administration Hydrochlorothiazide 25 mg 03/13/17 09:00 03/15/17 10:27 Hydrodiuril PO 25 mg DAILY AGUSTINA Administration Ciprofloxacin 100 mls @ 100 mls/hr 03/10/17 05:00 03/15/17 05:26 Cipro 200 Mg/100 Ml IV 100 mls/hr Q12H AGUSTINA Administration Acetaminophen 100 mls @ 400 mls/hr 03/10/17 20:57 03/11/17 18:35 Ofirmev IV 400 mls/hr Q6HR PRN Administration PAIN Acyclovir 500 mg/ Sodium 260 mls @ 250 mls/hr 03/14/17 08:00 03/15/17 08:00 Chloride IV 250 mls/hr Q8H AGUSTINA Administration Aztreonam 2 gm/ Sodium 100 mls @ 100 mls/hr 03/14/17 10:00 03/15/17 10:27 Chloride IV 100 mls/hr Q8H AGUSTINA Administration Vancomycin/Sodium Chloride 500 mls @ 300 mls/hr 03/14/17 12:00 03/15/17 12:16 Vanco/Sod Chloride 0.9% IV 300 mls/hr Q24H AGUSTINA Administration Potassium Chloride 40 meq/ 500 mls @ 125 mls/hr 03/15/17 12:00 03/15/17 11:41 Sodium Chloride IV 03/15/17 15:59 125 mls/hr ONCE ONE Administration Insulin Aspart 1 - 9 unit 03/13/17 11:29 03/15/17 12:40 Novolog SUBQ 8 unit 0800,1200,1700,2100 AGUSTINA Administration Protocol Insulin Glargine 20 unit 03/14/17 09:00 03/15/17 10:30 Lantus Solostar SUBQ 20 unit DAILY AGUSTINA Administration Lorazepam 1 mg 03/10/17 20:58 03/13/17 15:07 Ativan Inj IVP 1 mg Q2HR PRN Administration Agitation Losartan Potassium 50 mg 03/13/17 09:00 03/15/17 10:27 Cozaar PO 50 mg DAILY AGUSTINA Administration Morphine Sulfate 0.5 mg 03/10/17 14:00 03/14/17 16:03 Morphine IVP 0.5 mg Q8H PRN Administration PAIN Morphine Sulfate 2 mg 03/11/17 08:00 03/12/17 02:12 Morphine IVP 2 mg Q2HR PRN Administration PAIN Ondansetron HCl 4 mg 03/13/17 07:37 03/13/17 12:48 Zofran Inj IVP 4 mg Q4HR PRN Administration Nausea / Vomiting (Bisoprolol Fumarate 1 each 03/13/17 09:00 03/15/17 10:40 [Bisoprolol PO 1 each Fumarate] 10 Mg) Tab DAILY AGUSTINA Administration Polyethylene Glycol 17 gm 03/10/17 09:00 03/15/17 10:39 Miralax PO Not Given DAILY AGUSTINA Potassium Chloride 40 meq 03/15/17 12:00 03/15/17 12:40 K-Dur PO 40 meq DAILYWM AGUSTINA Administration Prochlorperazine Edisylate 10 mg 03/10/17 04:00 03/13/17 17:28 Compazine Inj IVP 10 mg Q6HR PRN Administration Nausea / Vomiting Sodium Chloride 10 ml 03/10/17 04:00 03/15/17 06:53 Normal Saline Flush 0.9% IVP 10 ml PRN PRN Administration NEEDED PER PROVIDER ORDERS Sodium Chloride 10 ml 03/10/17 06:00 03/15/17 05:51 Normal Saline Flush 0.9% IVP 10 ml Q8HR AGUSTINA Administration - Lab Result Fish Bone Diagrams: 03/15/17 05:54 03/15/17 05:54 - Additional Planning My Orders: My Active Orders 03/15/17 12:00 Potassium Chloride Inj 40 meq Sodium Chloride 0.9% [Normal Saline 0.9%] 480 ml IV ONCE Potassium Chloride [K-Dur] 40 meq PO DAILYWM 03/16/17 05:00 BMP - BASIC METABOLIC PANEL [CHEM] DAILYLAB Subjective - Subjective Patient Reports: No Complaints Nursing Reports: Other (Large maroon BM today.) Objective Vital Signs: Vital Signs - 24 hr 03/14/17 03/14/17 03/15/17 16:30 22:30 01:00 Temperature 37.1 C 36.6 C 37.4 C Heart Rate [ 83 73 99 Brachial] Respiratory 16 18 16 Rate Blood Pressure 155/82 H [Left Brachial artery] Blood Pressure 169/71 H 156/98 H [Right Brachial artery] O2 Saturation 99 100 97 03/15/17 03/15/17 06:00 08:11 Temperature 36.6 C 37.0 C Heart Rate [ 75 83 Brachial] Respiratory 18 16 Rate Blood Pressure [Left Brachial artery] Blood Pressure 155/72 H 160/77 H [Right Brachial artery] O2 Saturation 100 98 Oxygen O2 Source [Without Activity] Room air O2 Source Room air I&O (Last 24 Hrs): Intake and Output Totals x24h 03/13/17 03/14/17 03/15/17 23:59 23:59 23:59 Intake Total 2306 3265 586 Output Total 800 3800 750 Balance 1506 -986 -850 General: Alert HEENT: Mucous membr. moist/pink Neck: Supple Neuro: Disoriented Cardiovascular: No murmurs Respiratory: No respiratory distress Abdomen: Soft Extremities: No edema Skin: No breakdown - Results Results: Laboratory Results WBC 15.5 x10^3/uL (4.8-10.8) H 03/15/17 05:54 RBC 3.90 10^6/uL (4.20-5.40) L 03/15/17 05:54 Hgb 11.5 g/dL (12.0-16.0) L 03/15/17 05:54 Hct 33.6 % (37.0-47.0) L 03/15/17 05:54 MCV 86.2 fL (81.0-99.0) 03/15/17 05:54 MCH 29.4 pg (27.0-31.0) 03/15/17 05:54 MCHC 34.1 g/dL (32.0-36.0) 03/15/17 05:54 RDW 18.7 % (12.0-15.0) H 03/15/17 05:54 Plt Count 282 10^3/uL (130-450) 03/15/17 05:54 MPV 6.9 fL (7.9-10.8) L 03/15/17 05:54 Neut # 12.6 10^3/uL (1.5-6.6) H 03/15/17 05:54 Lymph # 1.5 10^3/uL (1.5-3.5) 03/15/17 05:54 [place] # 1.3 10^3/uL (0.0-1.0) H 03/15/17 05:54 Eos # 0.2 10^3/uL (0.0-0.7) 03/15/17 05:54 Baso # 0.0 10^3/uL (0.0-0.1) 03/15/17 05:54 Absolute Nucleated RBC 0.01 x10^3/uL 03/15/17 05:54 Total Counted 100 03/13/17 05:33 Band Neuts % (Manual) 4 % (0-10) 03/13/17 05:33 Neutrophils # (Manual) 7.9 10^3/uL (1.5-6.6) H 03/13/17 05:33 Lymphocytes # (Manual) 0.3 10^3/uL (1.5-3.5) L 03/13/17 05:33 Monocytes # (Manual) 0.4 10^3/uL (0.0-1.0) 03/13/17 05:33 Nucleated RBCs 0.0 /100WBC 03/15/17 05:54 Differential Comment MANUAL DIFFERENTIAL 03/13/17 05:33 Manual Slide Review Indicated 03/14/17 00:47 Platelet Estimate NORMAL (130-450,000) (NORMAL) 03/14/17 00:47 Platelet Morphology NORMAL APPEARANCE (NORMAL) 03/14/17 00:47 RBC Morph Micro Appear NORMAL APPEARANCE (NORMAL) 03/14/17 00:47 PT 12.1 secs (9.9-12.6) 03/15/17 05:54 INR 1.1 (0.8-1.2) 03/15/17 05:54 APTT 26.9 secs (24.9-33.3) 03/10/17 01:25 Fibrinogen 473 mg/dL (220-496) 03/15/17 05:54 Sodium 137 mmol/L (135-145) 03/15/17 05:54 Potassium 2.8 mmol/L (3.5-5.0) L 03/15/17 05:54 Chloride 98 mmol/L (101-111) L 03/15/17 05:54 Carbon Dioxide 29 mmol/L (21-32) 03/15/17 05:54 Anion Gap 10.0 (6-13) 03/15/17 05:54 BUN 12 mg/dL (6-20) 03/15/17 05:54 Creatinine 0.3 mg/dL (0.4-1.0) L 03/15/17 05:54 Estimated GFR (MDRD) 223 (>89) 03/15/17 05:54 Glucose 192 mg/dL (70-100) H 03/15/17 05:54 POC Whole Bld Glucose 310 mg/dL (70 - 100) H 03/15/17 11:15 Glycated Hemoglobin 8.7 % (4.6-6.2) H 03/10/17 05:59 Estim Average Glucose 203 (70-100) H 03/10/17 05:59 Calcium 8.5 mg/dL (8.5-10.3) 03/15/17 05:54 Phosphorus 3.2 mg/dL (2.5-4.6) 03/10/17 01:25 Magnesium 1.7 mg/dL (1.7-2.8) 03/10/17 01:25 Iron 53 ug/dL (28-170) 03/13/17 05:33 TIBC 179 ug/dL (250-450) L 03/13/17 05:33 % Saturation 30 % (20-50) 03/13/17 05:33 Transferrin 128 mg/dL (192-382) L 03/13/17 05:33 Ferritin 556.1 ng/mL (11.0-306.8) H 03/13/17 05:33 Total Bilirubin 0.6 mg/dL (0.2-1.0) 03/15/17 05:54 AST 21 IU/L (10-42) 03/15/17 05:54 ALT 15 IU/L (10-60) 03/15/17 05:54 Alkaline Phosphatase 50 IU/L (42-121) 03/15/17 05:54 Ammonia 13.6 umol/L (7-35) 03/11/17 07:58 Lactate Dehydrogenase 226 IU/L (91-225) H 03/15/17 05:54 Troponin I < 0.04 ng/mL (<0.49) 03/10/17 01:25 B-Natriuretic Peptide 105 pg/mL (5-100) H 03/10/17 01:25 Total Protein 6.2 g/dL (6.7-8.2) L 03/15/17 05:54 Albumin 3.3 g/dL (3.2-5.5) 03/15/17 05:54 Globulin 2.9 g/dL (2.1-4.2) 03/15/17 05:54 Albumin/Globulin Ratio 1.1 (1.0-2.2) 03/15/17 05:54 Triglycerides 86 mg/dL (-149) 03/11/17 06:08 Cholesterol 179 mg/dL (-199) 03/11/17 06:08 LDL Cholesterol, Calc 105 mg/dL (-129) 03/11/17 06:08 VLDL Cholesterol 17 mg/dL 03/11/17 06:08 HDL Cholesterol 57 mg/dL (60-) L 03/11/17 06:08 LDL/HDL Ratio 1.8 (<4.4) 03/11/17 06:08 Cholesterol/HDL Ratio 3.1 (<4.4) 03/11/17 06:08 Lipase 21 U/L (22-51) L 03/10/17 01:25 Vitamin B12 295 pg/mL (180-914) 03/13/17 05:33 Folate 12.31 ng/mL (5.90 - >24.8) 03/13/17 05:33 TSH 0.78 uIU/mL (0.34-5.60) 03/11/17 07:58 Urine Color YELLOW 03/10/17 02:50 Urine Clarity CLEAR (CLEAR) 03/10/17 02:50 Urine pH 7.5 PH (5.0-7.5) 03/10/17 02:50 Ur Specific [place] 1.015 (1.002-1.030) 03/10/17 02:50 Urine Protein TRACE mg/dL (NEGATIVE) 03/10/17 02:50 Urine Glucose (UA) 500 mg/dL (NEGATIVE) H 03/10/17 02:50 Urine Ketones TRACE mg/dL (NEGATIVE) 03/10/17 02:50 Urine Occult Blood TRACE-INTA (NEGATIVE) 03/10/17 02:50 Urine Nitrite NEGATIVE (NEGATIVE) 03/10/17 02:50 Urine Bilirubin NEGATIVE (NEGATIVE) 03/10/17 02:50 Urine Urobilinogen 0.2 (NORMAL) E.U./dL (NORMAL) 03/10/17 02:50 Ur Leukocyte Esterase NEGATIVE (NEGATIVE) 03/10/17 02:50 Ur Microscopic Review NOT INDICATED 03/10/17 02:50 Urine Culture Comments NOT INDICATED 03/10/17 02:50 Last Dose Date UNK 03/14/17 00:47 Last Dose Time UNK 03/14/17 00:47 Vancomycin Trough 6.8 ug/mL (5.0-15.0) 03/14/17 00:47 Urine Opiates Screen NEGATIVE (NEGATIVE) 03/10/17 02:50 Ur Oxycodone Screen NEGATIVE (NEGATIVE) 03/10/17 02:50 Urine Methadone Screen NEGATIVE (NEGATIVE) 03/10/17 02:50 Ur Propoxyphene Screen NEGATIVE (NEGATIVE) 03/10/17 02:50 Acetaminophen < 10 ug/mL (10-30) L 03/10/17 01:25 Ur Barbiturates Screen NEGATIVE (NEGATIVE) 03/10/17 02:50 Ur Tricyclics Screen NEGATIVE (NEGATIVE) 03/10/17 02:50 Ur Phencyclidine Scrn NEGATIVE (NEGATIVE) 03/10/17 02:50 Ur Amphetamine Screen NEGATIVE (NEGATIVE) 03/10/17 02:50 U Methamphetamines Scrn NEGATIVE (NEGATIVE) 03/10/17 02:50 U Benzodiazepines Scrn NEGATIVE (NEGATIVE) 03/10/17 02:50 Urine Cocaine Screen NEGATIVE (NEGATIVE) 03/10/17 02:50 U Cannabinoids Screen NEGATIVE (NEGATIVE) 03/10/17 02:50 Blood Type A POSITIVE 03/14/17 02:27 Blood Type Recheck A POSITIVE 03/14/17 03:00 Antibody Screen NEGATIVE 03/14/17 02:27 Crossmatch IS Only See Detail 03/14/17 02:27
[2017-03-15] MEDS ORDERED: IOPAMIDOL-300 100 ML VIAL IVP ONE (15:00)
--- NOTE | 2017-03-15 17:39 | CONSULTATION NOTE ---
Referring Provider Consult Date: 03/15/17 History - Past Medical History Cardiovascular: reports: None Respiratory: reports: Asthma Neuro: reports: None Endocrine/Autoimmune: reports: Type 2 diabetes : reports: Incontinence HEENT: reports: None Musculoskeletal: reports: None Derm: reports: None MRSA Hx?: No Other Past Medical History: cancer of the appendix - Past Surgical History /SLIPMAN: reports: Hysterectomy Meds/Allgy - Home Medications Home Medications: Ambulatory Orders Medication Instructions Recorded Confirmed Bisoprolol Fumarate 10 mg PO DAILY 03/10/17 03/10/17 Hydrochlorothiazide 25 mg PO DAILY 03/10/17 03/10/17 Insulin Glargine [Lantus] 10 unit SUBQ ONCE 03/10/17 03/10/17 Irbesartan [Avapro] 150 mg PO DAILY 03/10/17 03/10/17 Magnesium 100 mg PO DAILY 03/10/17 03/10/17 Potassium Chloride 600 mg PO DAILY 03/10/17 03/10/17 Pyridoxine HCl [Vitamin B-6] 10 mg PO DAILY 03/10/17 03/10/17 Tramadol HCl/Acetaminophen 1 each PO QID 03/10/17 03/10/17 [Tramadol-Acetaminophn 37.5-325] metFORMIN [Glucophage] 500 mg PO BID 03/10/17 03/10/17 - Allergies Allergies/Adverse Reactions: Allergies Allergy/AdvReac Type Severity Reaction Status Date / Time Penicillins Allergy Unknown Verified 03/10/17 02:41 Exam - Vital Signs Vital Signs: Vital Signs x48h Temp Pulse Resp BP Pulse Ox 03/15/17 15:35 36.6 C 75 18 139/62 H 100 Conclusion/Plan - Diagnosis Diagnosis: GI bleed - Plan Plan: Full consultation note to follow. CT scan reviewed and no large colon mass identified. Will proceed with colonoscopy in am with possible EGD if negative. Prep ordered. CBC Q6 hours. Transfuse for Hemoglobin < 8 or symptoms of blood loss anemia. - Lab Results Lab results reviewed: Yes Fish Bones: 03/15/17 05:54 03/15/17 05:54
[2017-03-15 18:00] LABS: BASOPHILS % (AUTO) 0.3 %; EOSINOPHILS # (AUTO) 0.2 10^3/uL (0.0-0.7); EOSINOPHILS % (AUTO) 1.3 %; HCT - HEMATOCRIT 31.3 % (37.0-47.0); HGB - HEMOGLOBIN 10.8 g/dL (12.0-16.0); LYMPHOCYTES # (AUTO) 1.3 10^3/uL (1.5-3.5); LYMPHOCYTES % (AUTO) 10.5 %; MEAN CORPUSCULAR HEMOGLOBIN 30.1 pg (27.0-31.0); MEAN CORPUSCULAR HGB CONC 34.5 g/dL (32.0-36.0); MEAN CORPUSCULAR VOLUME 87.1 fL (81.0-99.0); MEAN PLATELET VOLUME 6.8 fL (7.9-10.8); MONOCYTES % (AUTO) 8.2 %; NEUTROPHILS % (AUTO) 79.7 %; NUCLEATED RED BLOOD CELLS AUTO 0.1 /100WBC; RED CELL DISTRIBUTION WIDTH 18.5 % (12.0-15.0); UNCORRECTED WHITE BLOOD COUNT 12.6 x10^3/uL; WHITE BLOOD COUNT 12.6 x10^3/uL (4.8-10.8)
[2017-03-15] MEDS ORDERED: SODIUM/POTASSIUM/MAG SULFATES 354 ML PREP KIT PO SCH (18:00)
[2017-03-15] MEDS: SODIUM/POTASSIUM/MAG SULFATES 354 ML PREP KIT PO SCH (18:32)
[2017-03-15] MEDS: NS W/20 MEQ KCL 1,000 ML IV SCH (18:44)
--- NOTE | 2017-03-15 19:39 | CT Report ---
CT ABDOMEN AND PELVIS WITH CONTRAST: 03/15/2017 CLINICAL INDICATION: GI bleed, history of appendiceal carcinoma. Axial CT images of the abdomen and pelvis were obtained with 100 mL Isovue-300 intravenously. In accordance with CT protocol optimization, one or more of the following dose reduction techniques w ere utilized for this exam: automated exposure control, adjustment of mA and/or KV based on patient size, or use of iterative reconstructive technique. No previous CT is available for comparison. Limited evaluation of the lung bases demonstrates bibasilar atelectasis and emphysematous changes. ABDOMEN: Trace perihepatic ascites is present. The gallbladder is not dilated. No focal hepatic le ishan is seen. There is edema in the body and tail of the pancreas, compatible with pancreatitis. In flammation is seen throughout the root of the mesentery. No bowel dilatation, free gas, or abdominal adenopathy is appreciated. The spleen and left adrenal gland appear unremarkable. The right adrena l gland contains a 1.3 cm nodule. 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 The left kidney demonstrates a ureteral stent in place, with a 6 mm calculus i n the distal left ureter. PELVIS: Left ureteral stent terminates in the urinary bladder. A 6 mm left ureteral calculus is see n adjacent to the distal left ureteral stent. No pelvic adenopathy or free fluid is seen. Osseous structures demonstrate degenerative changes. IMPRESSION: 1. TRACE PERIHEPATIC ASCITES. 2. EDEMA IN THE BODY AND TAIL OF THE PANCREAS, WITH INFLAMMATION AT THE ROOT OF THE MESENTERY, ILIANA TIBLE WITH PANCREATITIS. 3. LEFT URETERAL STENT IN PLACE, WITH A 6 MM CALCULUS IN THE LEFT DISTAL URETER. DUPLICATED RIGHT R ENAL COLLECTING SYSTEM. 4. NO EVIDENT ACTIVE CONTRAST EXTRAVASATION INTO BOWEL. JOB #: [id number] EXT JOB #:[id number]
[2017-03-15 21:41] LABS: HEMOGLOBIN A1C 0.62 g/dL
[2017-03-15] MEDS: MORPHINE 2 MG/ML SYRINGE IVP PRN ×2 (22:23→23:53)
[2017-03-16] MEDS: LORazepam 2 MG/ML SYRINGE IVP PRN (00:51)
[2017-03-16] MEDS: SODIUM CHLORIDE FLUSH 0.9% 10 ML SYRINGE IVP PRN ×2 (02:18→05:09)
[2017-03-16] MEDS: AZTREONAM 2 GM in SODIUM CHLORIDE 0.9% MINIBAG 100 ML IV SCH ×3 (02:30→18:25)
[2017-03-16 02:35] LABS: BASOPHILS # (AUTO) 0.1 10^3/uL (0.0-0.1); BASOPHILS % (AUTO) 0.5 %; EOSINOPHILS # (AUTO) 0.3 10^3/uL (0.0-0.7); EOSINOPHILS % (AUTO) 3.1 %; HCT - HEMATOCRIT 28.1 % (37.0-47.0); HGB - HEMOGLOBIN 9.7 g/dL (12.0-16.0); LYMPHOCYTES # (AUTO) 1.3 10^3/uL (1.5-3.5); LYMPHOCYTES % (AUTO) 11.5 %; MEAN CORPUSCULAR HEMOGLOBIN 30.1 pg (27.0-31.0); MEAN CORPUSCULAR HGB CONC 34.5 g/dL (32.0-36.0); MEAN CORPUSCULAR VOLUME 87.2 fL (81.0-99.0); MEAN PLATELET VOLUME 6.8 fL (7.9-10.8); MONOCYTES % (AUTO) 8.9 %; NEUTROPHILS # (AUTO) 8.4 10^3/uL (1.5-6.6); RED BLOOD COUNT 3.22 10^6/uL (4.20-5.40); RED CELL DISTRIBUTION WIDTH 18.3 % (12.0-15.0)
[2017-03-16] MEDS: SODIUM CHLORIDE FLUSH 0.9% 10 ML SYRINGE IVP SCH ×3 (05:08→20:15)
[2017-03-16] MEDS: CIPROFLOXACIN 200 MG/100 ML 100 ML IV SCH ×2 (05:18→18:38)
[2017-03-16] MEDS: SODIUM/POTASSIUM/MAG SULFATES 354 ML PREP KIT PO SCH (05:24)
[2017-03-16 05:41] LABS: BASOPHILS % (AUTO) 0.1 %; EOSINOPHILS # (AUTO) 0.4 10^3/uL (0.0-0.7); EOSINOPHILS % (AUTO) 3.6 %; HCT - HEMATOCRIT 27.4 % (37.0-47.0); HGB - HEMOGLOBIN 9.8 g/dL (12.0-16.0); LYMPHOCYTES # (AUTO) 1.1 10^3/uL (1.5-3.5); LYMPHOCYTES % (AUTO) 10.6 %; MEAN CORPUSCULAR HGB CONC 35.6 g/dL (32.0-36.0); MEAN CORPUSCULAR VOLUME 87.2 fL (81.0-99.0); MEAN PLATELET VOLUME 6.8 fL (7.9-10.8); MONOCYTES # (AUTO) 0.9 10^3/uL (0.0-1.0); MONOCYTES % (AUTO) 8.3 %; NEUTROPHILS # (AUTO) 8.2 10^3/uL (1.5-6.6); NEUTROPHILS % (AUTO) 77.4 %; RED BLOOD COUNT 3.15 10^6/uL (4.20-5.40); UNCORRECTED WHITE BLOOD COUNT 10.6 x10^3/uL; WHITE BLOOD COUNT 10.6 x10^3/uL (4.8-10.8)
[2017-03-16 05:56] LABS: BILIRUBIN,TOTAL 0.8 mg/dL (0.2-1.0); CALCIUM 7.5 mg/dL (8.5-10.3); CREATININE 0.4 mg/dL (0.4-1.0); TOTAL PROTEIN 5.5 g/dL (6.7-8.2)
[2017-03-16 05:57] LABS: POTASSIUM 2.5 mmol/L (3.5-5.0)
[2017-03-16] MEDS ORDERED: POTASSIUM CHLORIDE INJ 40 MEQ in SODIUM CHLORIDE 0.9% 480 ML IV SCH ×2 (07:00→09:00)
[2017-03-16] MEDS: INSULIN ASPART 300 UNIT/3 ML PEN SUBQ SCH ×4 (07:42→20:48)
[2017-03-16] MEDS: POLYETHYLENE GLYCOL 3350 17 GM PACKET PO SCH (07:43)
[2017-03-16] MEDS: ACYCLOVIR INJ 500 MG in SODIUM CHLORIDE 0.9% 250 ML IV SCH ×2 (08:28→17:19)
[2017-03-16] MEDS: MORPHINE 2 MG/ML SYRINGE IVP PRN ×3 (09:18→22:43)
[2017-03-16] MEDS ORDERED: SODIUM CHLORIDE 0.9% 1,000 ML IV ONE (09:36)
--- NOTE | 2017-03-16 10:11 | CONSULTATION NOTE ---
DATE OF CONSULTATION: 03/15/2017 00:00:00 REASON FOR CONSULTATION: GI bleed. HISTORY OF PRESENT ILLNESS: This is a 66-year-old female with a complicated history. She currently is living in [place]. However, she came to the [facility] recently to visit some friends and family. 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 In August of this year, she underwent resection of these intra-abdominal tumors and appendectomy. She subsequently was started on chemotherapy. She had been receiving chemotherapy fairly well and decided to make a trip to the [facility] to see some of her friends and relatives. While visiting in the [facility], she developed altered mental status and was brought to [facility] Emergency Department on 03/10. On evaluation in the emergency department, she was noted to have slurred speech and was not cognizant. She was worked up for possible infectious etiologies of the source of her altered mental status. Of note, she does have a ureteral stent in place due to a ureteral stone causing partial obstruction. She was thought to possibly have urosepsis vs meningitis and has been treated with antibiotics. Her mental status improved during her hospital stay; however, on the morning of 03/14 she was noted to have a significant drop in her hemoglobin and hematocrit from 8.7/25 to 5.3/15.5. Later that day, she was noted to have maroon stools with blood clots. She was transfused 3 units of packed red blood cells and responded appropriately with a subsequent H and H at 11.5/33.6. A surgical consultation was obtained. On my evaluation of the patient, she is mentating well with slight slurred speech, but is aware of her surroundings and is oriented to time, place and person. Her 3 friends are with her and provide most of the medical history for her. They do have copies of the patient's medical records from [place], which are in [place]. They helped me to decipher these records and it seems that her chemotherapy was stopped approximately 1 month ago in preparation for the ureteral stent removal. She was taking in addition to a FOLFOX regimen, Avastin which also was stopped approximately 6 weeks ago. The patient denies any epigastric pain or generalized abdominal pain. She does have a vague complaint of left lower quadrant pain. She denies any prior history of peptic ulcer disease or gastritis. She denies any heavy usage of ibuprofen or NSAIDS. One of her friends states that she had a colonoscopy prior to her surgery in August of this year, which as per the patient's friend, this was normal. I was not able to review these records. The operative report from her operation in August was reviewed and it appeared that an appendectomy was performed and that the base of the appendix was free of any tumor. Additionally, debulking surgery was performed. There is no comment of having performed any type of colon resection. Due to her diagnosis of appendiceal mucinous adenocarcinoma, a CT scan of the abdomen was performed, which demonstrated pancreatitis, a left ureteral stent in place with a 6 mm calculus distal to the stent and no evidence of a colonic mass. PAST MEDICAL HISTORY: In addition to what has already been mentioned above, includes type 2 diabetes. PAST SURGICAL HISTORY: Includes in addition to what is mentioned above, hysterectomy and a right breast biopsy. ALLERGIES: PENICILLIN. CURRENT MEDICATIONS 1. Morphine p.r.n. 2. Lorazepam p.r.n. 3. Tylenol p.r.n. 4. Ondansetron p.r.n. 5. Prochlorperazine p.r.n. 6. Aztreonam 2 grams IV q.8. 7. Ciprofloxacin 500 mg IV q.12. 8. Losartan 50 mg p.o. every day. 9. Hydrochlorothiazide 25 mg p.o. every day. 10. Potassium 40 mEq p.o. every day. 11. Insulin 20 units subcutaneously daily. 12. Polyethylene glycol 17 grams p.o. daily. 13. Morphine 0.5 mg IV q.8h. p.r.n. 14. Insulin sliding scale. 15. Vancomycin 1 gram IV q.24h. 16. Acyclovir 500 mg IV q.8h. PHYSICAL EXAMINATION VITAL SIGNS: Temperature is 36.6, heart rate is 75, blood pressure is 139/62, respiratory rate is 18, O2 saturation is 100% on room air. GENERAL: The patient is awake and alert. She does have slightly slurred speech. She is able to provide most of her medical history. CARDIOVASCULAR: Regular rate and rhythm. CHEST: Clear to auscultation bilaterally with no rhonchi or wheezing. ABDOMEN: Soft, nondistended, nontender to palpation. EXTREMITIES: Nonedematous and well perfused. LABORATORY VALUES: White blood cell count is 15.5, hemoglobin 11.5, hematocrit 33.6, platelets 282. Sodium 137, potassium 2.8, chloride 98, bicarbonate 29, BUN 12, creatinine 0.3, lipase 21 on admission. ASSESSMENT: This is a 66-year-old female with a gastrointestinal bleed, likely lower GI in source. PLAN: I explained to the patient that likely the source of bleeding is somewhere in her colon and could certainly be related to her history of appendiceal mucinous adenocarcinoma. I plan to proceed with a colonoscopy and if no bleeding source is discovered, an upper endoscopy as well. I explained to the patient that she will require a bowel prep and we will perform serial CBCs every 6 hours and transfuse if she meets transfusion criteria. Both procedures were explained to the patient and her friends in detail including the potential risks involved including, but not limited to bleeding, perforation, and inability to control the source of bleeding. The patient recently has been on Avastin, which is a chemotherapeutic agent known to cause decreased wound healing and can cause bowel perforation. This has been held for a period of approximately 6 weeks, so the adverse risks associated with the drug should be eliminated at this point; however, I did discuss with the patient and her friends that this could increase her potential morbidity associated with the procedure and the risk of bleeding and perforation in her situation is certainly higher than the average risk. They understand all of the above and agreed to proceed with the procedure. The patient herself has signed her consent form. I do recommend repeating the patient's lipase, given the CT findings of possible pancreatitis. The patient's potassium should be replaced given her state of hypokalemia. JOB #: [id number] EXT JOB #:[id number]
[2017-03-16] MEDS: INSULIN GLARGINE 300 UNIT/3 ML PEN SUBQ SCH (12:43)
[2017-03-16] MEDS: POTASSIUM CHLORIDE 20 MEQ TABLET PO SCH (12:43)
[2017-03-16] MEDS: LOSARTAN 50 MG TABLET PO SCH (13:21)
[2017-03-16] MEDS: BISOPROLOL FUMARATE 10 MG PO SCH (13:21)
[2017-03-16] MEDS: hydroCHLOROthiazide 25 MG TABLET PO SCH (13:21)
[2017-03-16] MEDS ORDERED: VANCOMYCIN 1.5 GM/NS 500 ML 500 ML IV SCH (16:00)
--- NOTE | 2017-03-16 16:16 | PROVIDER PROGRESS NOTE ---
Assessment/Plan - Problem List (1) Meningitis Assessment/Plan: The patient is now oriented x3. Continue plan to complete a course of antibiotics. (2) Anemia Qualifiers: Anemia type: iron deficiency Assessment/Plan: GI source of bleeding. The patient underwent CT abdomen yesterday showing no mass. She had colonoscopy which showed oozing AVMs which were cauterized. She also had an EGD that was normal. She recieved an additional unit of blood overnight. Plan will be to watch for recurrence of bleeding or drop in H/H for at least 24 hours. 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 (4) Diabetes Qualifiers: Diabetes mellitus type: type 2 Assessment/Plan: Stable. Her diet will be resumed. Insulin coverage as previously (5) Hypertension Qualifiers: Hypertension type: essential hypertension Qualified Code(s): I10 - Essential (primary) hypertension Assessment/Plan: Stable (6) Hypokalemia Assessment/Plan: Pt needed replacement for very low K today again. - Current Meds Current Meds: Current Medications Generic Name Dose Route Start Last Admin Trade Name Freq PRN Reason Stop Dose Admin Hydrochlorothiazide 25 mg 03/13/17 09:00 03/16/17 13:21 Hydrodiuril PO 25 mg DAILY AGUSTINA Administration Ciprofloxacin 100 mls @ 100 mls/hr 03/10/17 05:00 03/16/17 05:18 Cipro 200 Mg/100 Ml IV 100 mls/hr Q12H AGUSTINA Administration Acetaminophen 100 mls @ 400 mls/hr 03/10/17 20:57 03/11/17 18:35 Ofirmev IV 400 mls/hr Q6HR PRN Administration PAIN Acyclovir 500 mg/ Sodium 260 mls @ 250 mls/hr 03/14/17 08:00 03/16/17 08:28 Chloride IV 250 mls/hr Q8H AGUSTINA Administration Aztreonam 2 gm/ Sodium 100 mls @ 100 mls/hr 03/14/17 10:00 03/16/17 13:24 Chloride IV 100 mls/hr Q8H AGUSTINA Administration Potassium Chloride/Sodium Chloride 1,000 mls @ 83.333 mls/hr 03/15/17 18:00 06/19 18:44 Normal Saline 0.9% W/20 Meq Kcl IV 83.333 mls/hr .Q12H AGUSTINA Administration Insulin Aspart 3 - 11 unit 03/15/17 21:30 03/16/17 13:35 Novolog SUBQ 3 unit 0800,1200,1700,2100 AGUSTINA Administration Protocol Insulin Glargine 20 unit 03/14/17 09:00 03/16/17 12:43 Lantus Solostar SUBQ Not Given DAILY AGUSTINA Lorazepam 1 mg 03/10/17 20:58 03/16/17 00:51 Ativan Inj IVP 1 mg Q2HR PRN Administration Agitation Losartan Potassium 50 mg 03/13/17 09:00 03/16/17 13:21 Cozaar PO 50 mg DAILY AGUSTINA Administration Morphine Sulfate 0.5 mg 03/10/17 14:00 03/16/17 09:18 Morphine IVP 0.5 mg Q8H PRN Administration PAIN Morphine Sulfate 2 mg 03/11/17 08:00 03/15/17 23:53 Morphine IVP 2 mg Q2HR PRN Administration PAIN Ondansetron HCl 4 mg 03/13/17 07:37 03/13/17 12:48 Zofran Inj IVP 4 mg Q4HR PRN Administration Nausea / Vomiting (Bisoprolol Fumarate 1 each 03/13/17 09:00 03/16/17 13:21 [Bisoprolol PO 1 each Fumarate] 10 Mg) Tab DAILY AGUSTINA Administration Polyethylene Glycol 17 gm 03/10/17 09:00 03/16/17 07:43 Miralax PO Not Given DAILY AGUSTINA Potassium Chloride 40 meq 03/15/17 12:00 03/16/17 12:43 K-Dur PO Not Given DAILYWM AGUSTINA Prochlorperazine Edisylate 10 mg 03/10/17 04:00 03/13/17 17:28 Compazine Inj IVP 10 mg Q6HR PRN Administration Nausea / Vomiting Sodium Chloride 10 ml 03/10/17 04:00 03/16/17 05:09 Normal Saline Flush 0.9% IVP 20 ml PRN PRN Administration NEEDED PER PROVIDER ORDERS Sodium Chloride 10 ml 03/10/17 06:00 03/16/17 09:18 Normal Saline Flush 0.9% IVP 20 ml Q8HR AGUSTINA Administration - Lab Result Fish Bone Diagrams: 03/16/17 05:15 03/16/17 05:15 - Additional Planning My Orders: My Active Orders 03/16/17 Lunch Dysphagia Advanced Diet [DIET] Subjective - Subjective Patient Reports: No Complaints Nursing Reports: No Complaints (No further melena or hematochezia) Objective Vital Signs: Vital Signs - 24 hr 03/16/17 03/16/17 03/16/17 00:25 06:37 07:59 Temperature 37 C 36.5 C Heart Rate [ Apical] Heart Rate [ 82 83 91 Brachial] Respiratory 17 17 16 Rate Blood Pressure 117/74 174/73 H 160/76 H [Right Brachial artery] O2 Saturation 98 100 95 03/16/17 03/16/17 03/16/17 08:00 11:15 11:20 Temperature 37.0 C Heart Rate [ Apical] Heart Rate [ 92 Brachial] Respiratory 16 Rate Blood Pressure 173/77 H [Right Brachial artery] O2 Saturation 97 95 100 03/16/17 03/16/17 03/16/17 11:25 11:30 11:35 Temperature Heart Rate [ Apical] Heart Rate [ Brachial] Respiratory Rate Blood Pressure [Right Brachial artery] O2 Saturation 100 100 100 03/16/17 03/16/17 03/16/17 11:40 11:55 12:10 Temperature 36.2 C L Heart Rate [ 77 Apical] Heart Rate [ Brachial] Respiratory 16 Rate Blood Pressure 156/100 H [Right Brachial artery] O2 Saturation 100 98 98 03/16/17 13:04 Temperature Heart Rate [ Apical] Heart Rate [ Brachial] Respiratory 16 Rate Blood Pressure 159/96 H [Right Brachial artery] O2 Saturation 98 Oxygen O2 Source [Without Activity] Room air O2 Source Room air I&O (Last 24 Hrs): Intake and Output Totals x24h 03/14/17 03/15/17 03/16/17 23:59 23:59 23:59 Intake Total 3265 2948 930 Output Total 3800 750 1500 Balance -535 2198 -570 General: Alert, Oriented x3 HEENT: Mucous membr. moist/pink Neck: Supple Neuro: Alert Cardiovascular: Regular rate Respiratory: No respiratory distress Abdomen: Soft Extremities: No edema - Results Results: Laboratory Results WBC 10.6 x10^3/uL (4.8-10.8) 03/16/17 05:15 RBC 3.15 10^6/uL (4.20-5.40) L 03/16/17 05:15 Hgb 9.8 g/dL (12.0-16.0) L 03/16/17 05:15 Hct 27.4 % (37.0-47.0) L 03/16/17 05:15 MCV 87.2 fL (81.0-99.0) 03/16/17 05:15 MCH 31.0 pg (27.0-31.0) 03/16/17 05:15 MCHC 35.6 g/dL (32.0-36.0) 03/16/17 05:15 RDW 18.0 % (12.0-15.0) H 03/16/17 05:15 Plt Count 215 10^3/uL (130-450) 03/16/17 05:15 MPV 6.8 fL (7.9-10.8) L 03/16/17 05:15 Neut # 8.2 10^3/uL (1.5-6.6) H 03/16/17 05:15 Lymph # 1.1 10^3/uL (1.5-3.5) L 03/16/17 05:15 [place] # 0.9 10^3/uL (0.0-1.0) 03/16/17 05:15 Eos # 0.4 10^3/uL (0.0-0.7) 03/16/17 05:15 Baso # 0.0 10^3/uL (0.0-0.1) 03/16/17 05:15 Absolute Nucleated RBC 0.00 x10^3/uL 03/16/17 05:15 Total Counted 100 03/13/17 05:33 Band Neuts % (Manual) 4 % (0-10) 03/13/17 05:33 Neutrophils # (Manual) 7.9 10^3/uL (1.5-6.6) H 03/13/17 05:33 Lymphocytes # (Manual) 0.3 10^3/uL (1.5-3.5) L 03/13/17 05:33 Monocytes # (Manual) 0.4 10^3/uL (0.0-1.0) 03/13/17 05:33 Nucleated RBCs 0.0 /100WBC 03/16/17 05:15 Differential Comment MANUAL DIFFERENTIAL 03/13/17 05:33 Manual Slide Review Indicated 03/14/17 00:47 Platelet Estimate NORMAL (130-450,000) (NORMAL) 03/14/17 00:47 Platelet Morphology NORMAL APPEARANCE (NORMAL) 03/14/17 00:47 RBC Morph Micro Appear NORMAL APPEARANCE (NORMAL) 03/14/17 00:47 PT 12.1 secs (9.9-12.6) 03/15/17 05:54 INR 1.1 (0.8-1.2) 03/15/17 05:54 APTT 26.9 secs (24.9-33.3) 03/10/17 01:25 Fibrinogen 473 mg/dL (220-496) 03/15/17 05:54 Sodium 137 mmol/L (135-145) 03/16/17 05:15 Potassium 2.5 mmol/L (3.5-5.0) L* 03/16/17 05:15 Chloride 101 mmol/L (101-111) 03/16/17 05:15 Carbon Dioxide 30 mmol/L (21-32) 03/16/17 05:15 Anion Gap 6.0 (6-13) 03/16/17 05:15 BUN 10 mg/dL (6-20) 03/16/17 05:15 Creatinine 0.4 mg/dL (0.4-1.0) 03/16/17 05:15 Estimated GFR (MDRD) 160 (>89) 03/16/17 05:15 Glucose 147 mg/dL (70-100) H 03/16/17 05:15 POC Whole Bld Glucose 174 mg/dL (70 - 100) H 03/16/17 11:27 Glycated Hemoglobin 7.1 % (4.6-6.2) H 03/15/17 17:51 Estim Average Glucose 157 (70-100) H 03/15/17 17:51 Calcium 7.5 mg/dL (8.5-10.3) L 03/16/17 05:15 Phosphorus 3.2 mg/dL (2.5-4.6) 03/10/17 01:25 Magnesium 2.3 mg/dL (1.7-2.8) 03/16/17 05:15 Iron 53 ug/dL (28-170) 03/13/17 05:33 TIBC 179 ug/dL (250-450) L 03/13/17 05:33 % Saturation 30 % (20-50) 03/13/17 05:33 Transferrin 128 mg/dL (192-382) L 03/13/17 05:33 Ferritin 556.1 ng/mL (11.0-306.8) H 03/13/17 05:33 Total Bilirubin 0.8 mg/dL (0.2-1.0) 03/16/17 05:15 AST 13 IU/L (10-42) 03/16/17 05:15 ALT 12 IU/L (10-60) 03/16/17 05:15 Alkaline Phosphatase 43 IU/L (42-121) 03/16/17 05:15 Ammonia 13.6 umol/L (7-35) 03/11/17 07:58 Lactate Dehydrogenase 226 IU/L (91-225) H 03/15/17 05:54 Troponin I < 0.04 ng/mL (<0.49) 03/10/17 01:25 B-Natriuretic Peptide 105 pg/mL (5-100) H 03/10/17 01:25 Total Protein 5.5 g/dL (6.7-8.2) L 03/16/17 05:15 Albumin 2.7 g/dL (3.2-5.5) L 03/16/17 05:15 Globulin 2.8 g/dL (2.1-4.2) 03/16/17 05:15 Albumin/Globulin Ratio 1.0 (1.0-2.2) 03/16/17 05:15 Triglycerides 86 mg/dL (-149) 03/11/17 06:08 Cholesterol 179 mg/dL (-199) 03/11/17 06:08 LDL Cholesterol, Calc 105 mg/dL (-129) 03/11/17 06:08 VLDL Cholesterol 17 mg/dL 03/11/17 06:08 HDL Cholesterol 57 mg/dL (60-) L 03/11/17 06:08 LDL/HDL Ratio 1.8 (<4.4) 03/11/17 06:08 Cholesterol/HDL Ratio 3.1 (<4.4) 03/11/17 06:08 Lipase 21 U/L (22-51) L 03/10/17 01:25 Vitamin B12 295 pg/mL (180-914) 03/13/17 05:33 Folate 12.31 ng/mL (5.90 - >24.8) 03/13/17 05:33 TSH 0.78 uIU/mL (0.34-5.60) 03/11/17 07:58 Urine Color YELLOW 03/10/17 02:50 Urine Clarity CLEAR (CLEAR) 03/10/17 02:50 Urine pH 7.5 PH (5.0-7.5) 03/10/17 02:50 Ur Specific [place] 1.015 (1.002-1.030) 03/10/17 02:50 Urine Protein TRACE mg/dL (NEGATIVE) 03/10/17 02:50 Urine Glucose (UA) 500 mg/dL (NEGATIVE) H 03/10/17 02:50 Urine Ketones TRACE mg/dL (NEGATIVE) 03/10/17 02:50 Urine Occult Blood TRACE-INTA (NEGATIVE) 03/10/17 02:50 Urine Nitrite NEGATIVE (NEGATIVE) 03/10/17 02:50 Urine Bilirubin NEGATIVE (NEGATIVE) 03/10/17 02:50 Urine Urobilinogen 0.2 (NORMAL) E.U./dL (NORMAL) 03/10/17 02:50 Ur Leukocyte Esterase NEGATIVE (NEGATIVE) 03/10/17 02:50 Ur Microscopic Review NOT INDICATED 03/10/17 02:50 Urine Culture Comments NOT INDICATED 03/10/17 02:50 Last Dose Date UNK 03/14/17 00:47 Last Dose Time UNK 03/14/17 00:47 Vancomycin Trough 6.8 ug/mL (5.0-15.0) 03/14/17 00:47 Urine Opiates Screen NEGATIVE (NEGATIVE) 03/10/17 02:50 Ur Oxycodone Screen NEGATIVE (NEGATIVE) 03/10/17 02:50 Urine Methadone Screen NEGATIVE (NEGATIVE) 03/10/17 02:50 Ur Propoxyphene Screen NEGATIVE (NEGATIVE) 03/10/17 02:50 Acetaminophen < 10 ug/mL (10-30) L 03/10/17 01:25 Ur Barbiturates Screen NEGATIVE (NEGATIVE) 03/10/17 02:50 Ur Tricyclics Screen NEGATIVE (NEGATIVE) 03/10/17 02:50 Ur Phencyclidine Scrn NEGATIVE (NEGATIVE) 03/10/17 02:50 Ur Amphetamine Screen NEGATIVE (NEGATIVE) 03/10/17 02:50 U Methamphetamines Scrn NEGATIVE (NEGATIVE) 03/10/17 02:50 U Benzodiazepines Scrn NEGATIVE (NEGATIVE) 03/10/17 02:50 Urine Cocaine Screen NEGATIVE (NEGATIVE) 03/10/17 02:50 U Cannabinoids Screen NEGATIVE (NEGATIVE) 03/10/17 02:50 Blood Type A POSITIVE 03/14/17 02:27 Blood Type Recheck A POSITIVE 03/14/17 03:00 Antibody Screen NEGATIVE 03/14/17 02:27 Crossmatch IS Only See Detail 03/14/17 02:27
[2017-03-16] MEDS: NS W/20 MEQ KCL 1,000 ML IV SCH ×2 (17:24→20:42)
[2017-03-17] MEDS: ACYCLOVIR INJ 500 MG in SODIUM CHLORIDE 0.9% 250 ML IV SCH ×3 (00:08→16:59)
[2017-03-17] MEDS: AZTREONAM 2 GM in SODIUM CHLORIDE 0.9% MINIBAG 100 ML IV SCH ×3 (02:08→19:56)
[2017-03-17] MEDS: MORPHINE 2 MG/ML SYRINGE IVP PRN ×7 (03:59→18:30)
[2017-03-17] MEDS: SODIUM CHLORIDE FLUSH 0.9% 10 ML SYRINGE IVP SCH ×3 (05:11→21:35)
[2017-03-17] MEDS: SODIUM CHLORIDE FLUSH 0.9% 10 ML SYRINGE IVP PRN ×4 (05:11→14:50)
[2017-03-17 06:01] LABS: BASOPHILS % (AUTO) 0.2 %; EOSINOPHILS # (AUTO) 0.6 10^3/uL (0.0-0.7); HCT - HEMATOCRIT 33.3 % (37.0-47.0); HGB - HEMOGLOBIN 11.4 g/dL (12.0-16.0); LYMPHOCYTES # (AUTO) 1.1 10^3/uL (1.5-3.5); LYMPHOCYTES % (AUTO) 8.6 %; MEAN CORPUSCULAR HEMOGLOBIN 30.6 pg (27.0-31.0); MEAN CORPUSCULAR HGB CONC 34.3 g/dL (32.0-36.0); MEAN CORPUSCULAR VOLUME 89.2 fL (81.0-99.0); MEAN PLATELET VOLUME 7.2 fL (7.9-10.8); MONOCYTES # (AUTO) 1.1 10^3/uL (0.0-1.0); MONOCYTES % (AUTO) 8.5 %; NEUTROPHILS # (AUTO) 9.9 10^3/uL (1.5-6.6); NEUTROPHILS % (AUTO) 77.7 %; RED BLOOD COUNT 3.73 10^6/uL (4.20-5.40); RED CELL DISTRIBUTION WIDTH 17.5 % (12.0-15.0); UNCORRECTED WHITE BLOOD COUNT 12.8 x10^3/uL; WHITE BLOOD COUNT 12.8 x10^3/uL (4.8-10.8)
[2017-03-17 06:06] LABS: ALBUMIN/GLOBULIN RATIO 0.9 (1.0-2.2); BILIRUBIN,TOTAL 0.8 mg/dL (0.2-1.0); CALCIUM 7.9 mg/dL (8.5-10.3); CREATININE 0.4 mg/dL (0.4-1.0); TOTAL PROTEIN 5.6 g/dL (6.7-8.2)
[2017-03-17] MEDS: CIPROFLOXACIN 200 MG/100 ML 100 ML IV SCH ×2 (08:51→16:50)
[2017-03-17] MEDS: POLYETHYLENE GLYCOL 3350 17 GM PACKET PO SCH (08:53)
[2017-03-17] MEDS: LOSARTAN 50 MG TABLET PO SCH (08:54)
[2017-03-17] MEDS: POTASSIUM CHLORIDE 20 MEQ TABLET PO SCH (08:54)
[2017-03-17] MEDS: INSULIN ASPART 300 UNIT/3 ML PEN SUBQ SCH ×4 (08:55→21:33)
[2017-03-17] MEDS: INSULIN GLARGINE 300 UNIT/3 ML PEN SUBQ SCH (08:56)
[2017-03-17] MEDS: NS W/20 MEQ KCL 1,000 ML IV SCH (09:05)
[2017-03-17] MEDS: BISOPROLOL FUMARATE 10 MG PO SCH (09:06)
[2017-03-17] MEDS: POTASSIUM CHLOR 10 MEQ/100 ML 100 ML IV SCH ×2 (09:55→10:59)
[2017-03-17] MEDS: ACETAMINOPHEN 1,000 MG/100 ML 100 ML IV PRN (16:31)
[2017-03-17] MEDS: VANCOMYCIN INJ 1 GM in SODIUM CHLORIDE 0.9% 250 ML IV SCH (19:56)
[2017-03-17] MEDS ORDERED: SODIUM CHLORIDE 0.9% 250 ML IV ONE (20:03)
[2017-03-18] MEDS: MORPHINE 2 MG/ML SYRINGE IVP PRN ×10 (01:43→22:11)
[2017-03-18] MEDS: NS W/20 MEQ KCL 1,000 ML IV SCH ×2 (01:43→16:01)
[2017-03-18] MEDS: ACYCLOVIR INJ 500 MG in SODIUM CHLORIDE 0.9% 250 ML IV SCH ×4 (01:44→23:58)
[2017-03-18] MEDS: AZTREONAM 2 GM in SODIUM CHLORIDE 0.9% MINIBAG 100 ML IV SCH ×3 (02:54→19:18)
[2017-03-18] MEDS: CIPROFLOXACIN 200 MG/100 ML 100 ML IV SCH ×2 (04:26→17:23)
[2017-03-18] MEDS: SODIUM CHLORIDE FLUSH 0.9% 10 ML SYRINGE IVP SCH ×3 (04:26→21:59)
[2017-03-18] MEDS: SODIUM CHLORIDE FLUSH 0.9% 10 ML SYRINGE IVP PRN ×2 (08:40→17:25)
[2017-03-18] MEDS: VANCOMYCIN INJ 1 GM in SODIUM CHLORIDE 0.9% 250 ML IV SCH ×2 (08:45→20:16)
[2017-03-18] MEDS: POLYETHYLENE GLYCOL 3350 17 GM PACKET PO SCH (08:46)
[2017-03-18] MEDS: POTASSIUM CHLORIDE 20 MEQ TABLET PO SCH (08:46)
[2017-03-18] MEDS: LOSARTAN 50 MG TABLET PO SCH (08:47)
[2017-03-18] MEDS: BISOPROLOL FUMARATE 10 MG PO SCH (08:52)
[2017-03-18] MEDS: INSULIN ASPART 300 UNIT/3 ML PEN SUBQ SCH ×4 (08:53→22:02)
[2017-03-18] MEDS: INSULIN GLARGINE 300 UNIT/3 ML PEN SUBQ SCH (08:54)
[2017-03-18] MEDS ORDERED: MAGNESIUM HYDROXIDE 2,400 MG/30 ML UDC PO ONE (12:43)
[2017-03-18] MEDS: SENNA 8.6 MG TABLET PO SCH (12:54)
--- NOTE | 2017-03-18 13:06 | PROVIDER PROGRESS NOTE ---
Assessment/Plan - Problem List (1) Meningitis Assessment/Plan: THIS IS A LATE ENTRY FOR THE 03/17/17 [facility] Meningitis. Mental status stable. VSS. Continue empiric antibiotics. (2) Anemia Qualifiers: Anemia type: iron deficiency Assessment/Plan: No further melena and H/H stable. Pt taking solid diet but only 20-25% of tray. (3) Malignant neoplasm of appendix Assessment/Plan: Stable, but gets LLQ pain intermittently. (4) Diabetes Qualifiers: Diabetes mellitus type: type 2 Assessment/Plan: Stable. Due to poor po intake, her diet will remain unrestricted (not a diabetic diet). (5) Hypertension Qualifiers: Hypertension type: essential hypertension Qualified Code(s): I10 - Essential (primary) hypertension Assessment/Plan: Stable - Current Meds Current Meds: Current Medications Generic Name Dose Route Start Last Admin Trade Name Freq PRN Reason Stop Dose Admin Ciprofloxacin 100 mls @ 100 mls/hr 03/10/17 05:00 03/18/17 04:26 Cipro 200 Mg/100 Ml IV 100 mls/hr Q12H AGUSTINA Administration Acetaminophen 100 mls @ 400 mls/hr 03/10/17 20:57 03/17/17 16:31 Ofirmev IV 400 mls/hr Q6HR PRN Administration PAIN Acyclovir 500 mg/ Sodium 260 mls @ 250 mls/hr 03/14/17 08:00 03/18/17 09:06 Chloride IV 250 mls/hr Q8H AGUSTINA Administration Aztreonam 2 gm/ Sodium 100 mls @ 100 mls/hr 03/14/17 10:00 03/18/17 10:35 Chloride IV 100 mls/hr Q8H AGUSTINA Administration Potassium Chloride/Sodium Chloride 1,000 mls @ 83.333 mls/hr 03/15/17 18:00 01:43 Normal Saline 0.9% W/20 Meq Kcl IV 83.333 mls/hr .Q12H AGUSTINA Administration Vancomycin HCl 1 gm/ Sodium 250 mls @ 166.667 mls/hr 03/17/17 17:00 03/18/17 08 :45 Chloride IV 166.667 mls/hr Q12H AGUSTINA Administration Insulin Aspart 3 - 11 unit 03/15/17 21:30 03/18/17 11:52 Novolog SUBQ 5 unit 0800,1200,1700,2100 AGUSTINA Administration Protocol Insulin Glargine 20 unit 03/14/17 09:00 03/18/17 08:54 Lantus Solostar SUBQ 20 unit DAILY AGUSTINA Administration Lorazepam 1 mg 03/10/17 20:58 03/16/17 00:51 Ativan Inj IVP 1 mg Q2HR PRN Administration Agitation Losartan Potassium 50 mg 03/13/17 09:00 03/18/17 08:47 Cozaar PO 50 mg DAILY AGUSTINA Administration Morphine Sulfate 2 mg 03/11/17 08:00 03/18/17 12:00 Morphine IVP 2 mg Q2HR PRN Administration PAIN Ondansetron HCl 4 mg 03/13/17 07:37 03/13/17 12:48 Zofran Inj IVP 4 mg Q4HR PRN Administration Nausea / Vomiting (Bisoprolol Fumarate 1 each 03/13/17 09:00 03/18/17 08:52 [Bisoprolol PO 1 each Fumarate] 10 Mg) Tab DAILY AGUSTINA Administration Polyethylene Glycol 17 gm 03/10/17 09:00 03/18/17 08:46 Miralax PO Not Given DAILY AGUSTINA Potassium Chloride 40 meq 03/15/17 12:00 03/18/17 08:46 K-Dur PO 40 meq DAILYWM AGUSTINA Administration Prochlorperazine Edisylate 10 mg 03/10/17 04:00 03/13/17 17:28 Compazine Inj IVP 10 mg Q6HR PRN Administration Nausea / Vomiting Senna 8.6 - 17.2 mg 03/18/17 13:00 03/18/17 12:54 Senokot PO 8.6 mg DAILY AGUSTINA Administration Sodium Chloride 10 ml 03/10/17 04:00 03/18/17 08:40 Normal Saline Flush 0.9% IVP 10 ml PRN PRN Administration NEEDED PER PROVIDER ORDERS Sodium Chloride 10 ml 03/10/17 06:00 03/18/17 12:00 Normal Saline Flush 0.9% IVP 10 ml Q8HR AGUSTINA Administration - Lab Result Fish Bone Diagrams: 03/17/17 05:07 03/17/17 05:07 - Additional Planning My Orders: My Active Orders 03/18/17 13:00 Senna [Senokot] 8.6 - 17.2 mg PO DAILY 03/19/17 09:00 Docusate Sodium 250Mg Capsule [Colace 250Mg Capsule] 250 - 500 mg PO DAILY Subjective - Subjective Patient Reports: Feeling Better Nursing Reports: No Complaints Objective Vital Signs: Vital Signs - 24 hr 03/17/17 03/18/17 03/18/17 15:50 00:37 08:26 Temperature 36.8 C 37.0 C 36.6 C Heart Rate [ 67 82 75 Brachial] Respiratory 16 16 18 Rate Blood Pressure 144/60 H 154/74 H 170/71 H [Right Brachial artery] O2 Saturation 98 98 98 Oxygen O2 Source [Without Activity] Room air O2 Source Room air I&O (Last 24 Hrs): Intake and Output Totals x24h 03/16/17 03/17/17 03/18/17 23:59 23:59 23:59 Intake Total 3068 3161 1935 Output Total 1500 650 550 Balance 1568 2511 1385 General: Oriented x3 HEENT: Mucous membr. moist/pink Neck: Supple Neuro: Alert Cardiovascular: Regular rate Respiratory: No respiratory distress Abdomen: Soft Extremities: No edema - Results Results: Laboratory Results WBC 12.8 x10^3/uL (4.8-10.8) H 03/17/17 05:07 RBC 3.73 10^6/uL (4.20-5.40) L 03/17/17 05:07 Hgb 11.4 g/dL (12.0-16.0) L 03/17/17 05:07 Hct 33.3 % (37.0-47.0) L 03/17/17 05:07 MCV 89.2 fL (81.0-99.0) 03/17/17 05:07 MCH 30.6 pg (27.0-31.0) 03/17/17 05:07 MCHC 34.3 g/dL (32.0-36.0) 03/17/17 05:07 RDW 17.5 % (12.0-15.0) H 03/17/17 05:07 Plt Count 231 10^3/uL (130-450) 03/17/17 05:07 MPV 7.2 fL (7.9-10.8) L 03/17/17 05:07 Neut # 9.9 10^3/uL (1.5-6.6) H 03/17/17 05:07 Lymph # 1.1 10^3/uL (1.5-3.5) L 03/17/17 05:07 [place] # 1.1 10^3/uL (0.0-1.0) H 03/17/17 05:07 Eos # 0.6 10^3/uL (0.0-0.7) 03/17/17 05:07 Baso # 0.0 10^3/uL (0.0-0.1) 03/17/17 05:07 Absolute Nucleated RBC 0.00 x10^3/uL 03/17/17 05:07 Total Counted 100 03/13/17 05:33 Band Neuts % (Manual) 4 % (0-10) 03/13/17 05:33 Neutrophils # (Manual) 7.9 10^3/uL (1.5-6.6) H 03/13/17 05:33 Lymphocytes # (Manual) 0.3 10^3/uL (1.5-3.5) L 03/13/17 05:33 Monocytes # (Manual) 0.4 10^3/uL (0.0-1.0) 03/13/17 05:33 Nucleated RBCs 0.0 /100WBC 03/17/17 05:07 Differential Comment MANUAL DIFFERENTIAL 03/13/17 05:33 Manual Slide Review Indicated 03/14/17 00:47 Platelet Estimate NORMAL (130-450,000) (NORMAL) 03/14/17 00:47 Platelet Morphology NORMAL APPEARANCE (NORMAL) 03/14/17 00:47 RBC Morph Micro Appear NORMAL APPEARANCE (NORMAL) 03/14/17 00:47 Haptoglobin 219 mg/dL (43-212) H 03/15/17 05:54 PT 12.1 secs (9.9-12.6) 03/15/17 05:54 INR 1.1 (0.8-1.2) 03/15/17 05:54 APTT 26.9 secs (24.9-33.3) 03/10/17 01:25 Fibrinogen 473 mg/dL (220-496) 03/15/17 05:54 Sodium 135 mmol/L (135-145) 03/17/17 05:07 Potassium 3.0 mmol/L (3.5-5.0) L 03/17/17 05:07 Chloride 101 mmol/L (101-111) 03/17/17 05:07 Carbon Dioxide 27 mmol/L (21-32) 03/17/17 05:07 Anion Gap 7.0 (6-13) 03/17/17 05:07 BUN 8 mg/dL (6-20) 03/17/17 05:07 Creatinine 0.4 mg/dL (0.4-1.0) 03/17/17 05:07 Estimated GFR (MDRD) 160 (>89) 03/17/17 05:07 Glucose 185 mg/dL (70-100) H 03/17/17 05:07 POC Whole Bld Glucose 194 mg/dL (70 - 100) H 03/18/17 11:27 Glycated Hemoglobin 7.1 % (4.6-6.2) H 03/15/17 17:51 Estim Average Glucose 157 (70-100) H 03/15/17 17:51 Calcium 7.9 mg/dL (8.5-10.3) L 03/17/17 05:07 Phosphorus 3.2 mg/dL (2.5-4.6) 03/10/17 01:25 Magnesium 2.3 mg/dL (1.7-2.8) 03/16/17 05:15 Iron 53 ug/dL (28-170) 03/13/17 05:33 TIBC 179 ug/dL (250-450) L 03/13/17 05:33 % Saturation 30 % (20-50) 03/13/17 05:33 Transferrin 128 mg/dL (192-382) L 03/13/17 05:33 Ferritin 556.1 ng/mL (11.0-306.8) H 03/13/17 05:33 Total Bilirubin 0.8 mg/dL (0.2-1.0) 03/17/17 05:07 AST 15 IU/L (10-42) 03/17/17 05:07 ALT 12 IU/L (10-60) 03/17/17 05:07 Alkaline Phosphatase 45 IU/L (42-121) 03/17/17 05:07 Ammonia 13.6 umol/L (7-35) 03/11/17 07:58 Lactate Dehydrogenase 226 IU/L (91-225) H 03/15/17 05:54 Troponin I < 0.04 ng/mL (<0.49) 03/10/17 01:25 B-Natriuretic Peptide 105 pg/mL (5-100) H 03/10/17 01:25 Total Protein 5.6 g/dL (6.7-8.2) L 03/17/17 05:07 Albumin 2.7 g/dL (3.2-5.5) L 03/17/17 05:07 Globulin 2.9 g/dL (2.1-4.2) 03/17/17 05:07 Albumin/Globulin Ratio 0.9 (1.0-2.2) L 03/17/17 05:07 Triglycerides 86 mg/dL (-149) 03/11/17 06:08 Cholesterol 179 mg/dL (-199) 03/11/17 06:08 LDL Cholesterol, Calc 105 mg/dL (-129) 03/11/17 06:08 VLDL Cholesterol 17 mg/dL 03/11/17 06:08 HDL Cholesterol 57 mg/dL (60-) L 03/11/17 06:08 LDL/HDL Ratio 1.8 (<4.4) 03/11/17 06:08 Cholesterol/HDL Ratio 3.1 (<4.4) 03/11/17 06:08 Lipase 21 U/L (22-51) L 03/10/17 01:25 Vitamin B12 295 pg/mL (180-914) 03/13/17 05:33 Folate 12.31 ng/mL (5.90 - >24.8) 03/13/17 05:33 TSH 0.78 uIU/mL (0.34-5.60) 03/11/17 07:58 Urine Color YELLOW 03/10/17 02:50 Urine Clarity CLEAR (CLEAR) 03/10/17 02:50 Urine pH 7.5 PH (5.0-7.5) 03/10/17 02:50 Ur Specific [place] 1.015 (1.002-1.030) 03/10/17 02:50 Urine Protein TRACE mg/dL (NEGATIVE) 03/10/17 02:50 Urine Glucose (UA) 500 mg/dL (NEGATIVE) H 03/10/17 02:50 Urine Ketones TRACE mg/dL (NEGATIVE) 03/10/17 02:50 Urine Occult Blood TRACE-INTA (NEGATIVE) 03/10/17 02:50 Urine Nitrite NEGATIVE (NEGATIVE) 03/10/17 02:50 Urine Bilirubin NEGATIVE (NEGATIVE) 03/10/17 02:50 Urine Urobilinogen 0.2 (NORMAL) E.U./dL (NORMAL) 03/10/17 02:50 Ur Leukocyte Esterase NEGATIVE (NEGATIVE) 03/10/17 02:50 Ur Microscopic Review NOT INDICATED 03/10/17 02:50 Urine Culture Comments NOT INDICATED 03/10/17 02:50 Last Dose Date 03/16/2017 03/17/17 16:20 Last Dose Time 16203/17/17 16:20 Vancomycin Trough 5.8 ug/mL (5.0-15.0) 03/17/17 16:20 Urine Opiates Screen NEGATIVE (NEGATIVE) 03/10/17 02:50 Ur Oxycodone Screen NEGATIVE (NEGATIVE) 03/10/17 02:50 Urine Methadone Screen NEGATIVE (NEGATIVE) 03/10/17 02:50 Ur Propoxyphene Screen NEGATIVE (NEGATIVE) 03/10/17 02:50 Acetaminophen < 10 ug/mL (10-30) L 03/10/17 01:25 Ur Barbiturates Screen NEGATIVE (NEGATIVE) 03/10/17 02:50 Ur Tricyclics Screen NEGATIVE (NEGATIVE) 03/10/17 02:50 Ur Phencyclidine Scrn NEGATIVE (NEGATIVE) 03/10/17 02:50 Ur Amphetamine Screen NEGATIVE (NEGATIVE) 03/10/17 02:50 U Methamphetamines Scrn NEGATIVE (NEGATIVE) 03/10/17 02:50 U Benzodiazepines Scrn NEGATIVE (NEGATIVE) 03/10/17 02:50 Urine Cocaine Screen NEGATIVE (NEGATIVE) 03/10/17 02:50 U Cannabinoids Screen NEGATIVE (NEGATIVE) 03/10/17 02:50 Blood Type A POSITIVE 03/14/17 02:27 Blood Type Recheck A POSITIVE 03/14/17 03:00 Antibody Screen NEGATIVE 03/14/17 02:27 Crossmatch IS Only See Detail 03/14/17 02:27
--- NOTE | 2017-03-18 13:15 | PROVIDER PROGRESS NOTE ---
Assessment/Plan - Problem List (1) Meningitis Assessment/Plan: The patient is stable for travel and medically clear. Will use po antibiotics to complete a 14 day course. 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 Continue pain meds. (4) Diabetes Qualifiers: Diabetes mellitus type: type 2 Assessment/Plan: Stable on present diet and meds (5) Hypertension Qualifiers: Hypertension type: essential hypertension Qualified Code(s): I10 - Essential (primary) hypertension Assessment/Plan: Stable - Current Meds Current Meds: Current Medications Generic Name Dose Route Start Last Admin Trade Name Freq PRN Reason Stop Dose Admin Ciprofloxacin 100 mls @ 100 mls/hr 03/10/17 05:00 03/18/17 04:26 Cipro 200 Mg/100 Ml IV 100 mls/hr Q12H AGUSTINA Administration Acetaminophen 100 mls @ 400 mls/hr 03/10/17 20:57 03/17/17 16:31 Ofirmev IV 400 mls/hr Q6HR PRN Administration PAIN Acyclovir 500 mg/ Sodium 260 mls @ 250 mls/hr 03/14/17 08:00 03/18/17 09:06 Chloride IV 250 mls/hr Q8H AGUSTINA Administration Aztreonam 2 gm/ Sodium 100 mls @ 100 mls/hr 03/14/17 10:00 03/18/17 10:35 Chloride IV 100 mls/hr Q8H AGUSTINA Administration Potassium Chloride/Sodium Chloride 1,000 mls @ 83.333 mls/hr 03/15/17 18:00 01:43 Normal Saline 0.9% W/20 Meq Kcl IV 83.333 mls/hr .Q12H AGUSTINA Administration Vancomycin HCl 1 gm/ Sodium 250 mls @ 166.667 mls/hr 03/17/17 17:00 03/18/17 08 :45 Chloride IV 166.667 mls/hr Q12H AGUSTINA Administration Insulin Aspart 3 - 11 unit 03/15/17 21:30 03/18/17 11:52 Novolog SUBQ 5 unit 0800,1200,1700,2100 AGUSTINA Administration Protocol Insulin Glargine 20 unit 03/14/17 09:00 03/18/17 08:54 Pj Fry SUBQ 20 unit DAILY AGUSTINA Administration Lorazepam 1 mg 03/10/17 20:58 03/16/17 00:51 Ativan Inj IVP 1 mg Q2HR PRN Administration Agitation Losartan Potassium 50 mg 03/13/17 09:00 03/18/17 08:47 Cozaar PO 50 mg DAILY AGUSTINA Administration Morphine Sulfate 2 mg 03/11/17 08:00 03/18/17 12:00 Morphine IVP 2 mg Q2HR PRN Administration PAIN Ondansetron HCl 4 mg 03/13/17 07:37 03/13/17 12:48 Zofran Inj IVP 4 mg Q4HR PRN Administration Nausea / Vomiting (Bisoprolol Fumarate 1 each 03/13/17 09:00 03/18/17 08:52 [Bisoprolol PO 1 each Fumarate] 10 Mg) Tab DAILY AGUSTINA Administration Polyethylene Glycol 17 gm 03/10/17 09:00 03/18/17 08:46 Miralax PO Not Given DAILY AGUSTINA Potassium Chloride 40 meq 03/15/17 12:00 03/18/17 08:46 K-Dur PO 40 meq DAILYWM AGUSTINA Administration Prochlorperazine Edisylate 10 mg 03/10/17 04:00 03/13/17 17:28 Compazine Inj IVP 10 mg Q6HR PRN Administration Nausea / Vomiting Senna 8.6 - 17.2 mg 03/18/17 13:00 03/18/17 12:54 Senokot PO 8.6 mg DAILY AGUSTINA Administration Sodium Chloride 10 ml 03/10/17 04:00 03/18/17 08:40 Normal Saline Flush 0.9% IVP 10 ml PRN PRN Administration NEEDED PER PROVIDER ORDERS Sodium Chloride 10 ml 03/10/17 06:00 03/18/17 12:00 Normal Saline Flush 0.9% IVP 10 ml Q8HR AGUSTINA Administration - Lab Result Fish Bone Diagrams: 03/17/17 05:07 03/17/17 05:07 - Additional Planning My Orders: My Active Orders 03/18/17 13:00 Senna [Senokot] 8.6 - 17.2 mg PO DAILY 03/19/17 09:00 Docusate Sodium 250Mg Capsule [Colace 250Mg Capsule] 250 - 500 mg PO DAILY Subjective - Subjective Patient Reports: No Complaints Nursing Reports: No Complaints Objective Vital Signs: Vital Signs - 24 hr 03/17/17 03/18/17 03/18/17 15:50 00:37 08:26 Temperature 36.8 C 37.0 C 36.6 C Heart Rate [ 67 82 75 Brachial] Respiratory 16 16 18 Rate Blood Pressure 144/60 H 154/74 H 170/71 H [Right Brachial artery] O2 Saturation 98 98 98 Oxygen O2 Source [Without Activity] Room air O2 Source Room air I&O (Last 24 Hrs): Intake and Output Totals x24h 03/16/17 03/17/17 03/18/17 23:59 23:59 23:59 Intake Total 3068 3161 1935 Output Total 1500 650 550 Balance 1568 2511 1385 General: Oriented x3 HEENT: Mucous membr. moist/pink Neck: Supple Neuro: Alert Cardiovascular: Regular rate Respiratory: No respiratory distress Extremities: No edema - Results Results: Laboratory Results WBC 12.8 x10^3/uL (4.8-10.8) H 03/17/17 05:07 RBC 3.73 10^6/uL (4.20-5.40) L 03/17/17 05:07 Hgb 11.4 g/dL (12.0-16.0) L 03/17/17 05:07 Hct 33.3 % (37.0-47.0) L 03/17/17 05:07 MCV 89.2 fL (81.0-99.0) 03/17/17 05:07 MCH 30.6 pg (27.0-31.0) 03/17/17 05:07 MCHC 34.3 g/dL (32.0-36.0) 03/17/17 05:07 RDW 17.5 % (12.0-15.0) H 03/17/17 05:07 Plt Count 231 10^3/uL (130-450) 03/17/17 05:07 MPV 7.2 fL (7.9-10.8) L 03/17/17 05:07 Neut # 9.9 10^3/uL (1.5-6.6) H 03/17/17 05:07 Lymph # 1.1 10^3/uL (1.5-3.5) L 03/17/17 05:07 [place] # 1.1 10^3/uL (0.0-1.0) H 03/17/17 05:07 Eos # 0.6 10^3/uL (0.0-0.7) 03/17/17 05:07 Baso # 0.0 10^3/uL (0.0-0.1) 03/17/17 05:07 Absolute Nucleated RBC 0.00 x10^3/uL 03/17/17 05:07 Total Counted 100 03/13/17 05:33 Band Neuts % (Manual) 4 % (0-10) 03/13/17 05:33 Neutrophils # (Manual) 7.9 10^3/uL (1.5-6.6) H 03/13/17 05:33 Lymphocytes # (Manual) 0.3 10^3/uL (1.5-3.5) L 03/13/17 05:33 Monocytes # (Manual) 0.4 10^3/uL (0.0-1.0) 03/13/17 05:33 Nucleated RBCs 0.0 /100WBC 03/17/17 05:07 Differential Comment MANUAL DIFFERENTIAL 03/13/17 05:33 Manual Slide Review Indicated 03/14/17 00:47 Platelet Estimate NORMAL (130-450,000) (NORMAL) 03/14/17 00:47 Platelet Morphology NORMAL APPEARANCE (NORMAL) 03/14/17 00:47 RBC Morph Micro Appear NORMAL APPEARANCE (NORMAL) 03/14/17 00:47 Haptoglobin 219 mg/dL (43-212) H 03/15/17 05:54 PT 12.1 secs (9.9-12.6) 03/15/17 05:54 INR 1.1 (0.8-1.2) 03/15/17 05:54 APTT 26.9 secs (24.9-33.3) 03/10/17 01:25 Fibrinogen 473 mg/dL (220-496) 03/15/17 05:54 Sodium 135 mmol/L (135-145) 03/17/17 05:07 Potassium 3.0 mmol/L (3.5-5.0) L 03/17/17 05:07 Chloride 101 mmol/L (101-111) 03/17/17 05:07 Carbon Dioxide 27 mmol/L (21-32) 03/17/17 05:07 Anion Gap 7.0 (6-13) 03/17/17 05:07 BUN 8 mg/dL (6-20) 03/17/17 05:07 Creatinine 0.4 mg/dL (0.4-1.0) 03/17/17 05:07 Estimated GFR (MDRD) 160 (>89) 03/17/17 05:07 Glucose 185 mg/dL (70-100) H 03/17/17 05:07 POC Whole Bld Glucose 194 mg/dL (70 - 100) H 03/18/17 11:27 Glycated Hemoglobin 7.1 % (4.6-6.2) H 03/15/17 17:51 Estim Average Glucose 157 (70-100) H 03/15/17 17:51 Calcium 7.9 mg/dL (8.5-10.3) L 03/17/17 05:07 Phosphorus 3.2 mg/dL (2.5-4.6) 03/10/17 01:25 Magnesium 2.3 mg/dL (1.7-2.8) 03/16/17 05:15 Iron 53 ug/dL (28-170) 03/13/17 05:33 TIBC 179 ug/dL (250-450) L 03/13/17 05:33 % Saturation 30 % (20-50) 03/13/17 05:33 Transferrin 128 mg/dL (192-382) L 03/13/17 05:33 Ferritin 556.1 ng/mL (11.0-306.8) H 03/13/17 05:33 Total Bilirubin 0.8 mg/dL (0.2-1.0) 03/17/17 05:07 AST 15 IU/L (10-42) 03/17/17 05:07 ALT 12 IU/L (10-60) 03/17/17 05:07 Alkaline Phosphatase 45 IU/L (42-121) 03/17/17 05:07 Ammonia 13.6 umol/L (7-35) 03/11/17 07:58 Lactate Dehydrogenase 226 IU/L (91-225) H 03/15/17 05:54 Troponin I < 0.04 ng/mL (<0.49) 03/10/17 01:25 B-Natriuretic Peptide 105 pg/mL (5-100) H 03/10/17 01:25 Total Protein 5.6 g/dL (6.7-8.2) L 03/17/17 05:07 Albumin 2.7 g/dL (3.2-5.5) L 03/17/17 05:07 Globulin 2.9 g/dL (2.1-4.2) 03/17/17 05:07 Albumin/Globulin Ratio 0.9 (1.0-2.2) L 03/17/17 05:07 Triglycerides 86 mg/dL (-149) 03/11/17 06:08 Cholesterol 179 mg/dL (-199) 03/11/17 06:08 LDL Cholesterol, Calc 105 mg/dL (-129) 03/11/17 06:08 VLDL Cholesterol 17 mg/dL 03/11/17 06:08 HDL Cholesterol 57 mg/dL (60-) L 03/11/17 06:08 LDL/HDL Ratio 1.8 (<4.4) 03/11/17 06:08 Cholesterol/HDL Ratio 3.1 (<4.4) 03/11/17 06:08 Lipase 21 U/L (22-51) L 03/10/17 01:25 Vitamin B12 295 pg/mL (180-914) 03/13/17 05:33 Folate 12.31 ng/mL (5.90 - >24.8) 03/13/17 05:33 TSH 0.78 uIU/mL (0.34-5.60) 03/11/17 07:58 Urine Color YELLOW 03/10/17 02:50 Urine Clarity CLEAR (CLEAR) 03/10/17 02:50 Urine pH 7.5 PH (5.0-7.5) 03/10/17 02:50 Ur Specific [place] 1.015 (1.002-1.030) 03/10/17 02:50 Urine Protein TRACE mg/dL (NEGATIVE) 03/10/17 02:50 Urine Glucose (UA) 500 mg/dL (NEGATIVE) H 03/10/17 02:50 Urine Ketones TRACE mg/dL (NEGATIVE) 03/10/17 02:50 Urine Occult Blood TRACE-INTA (NEGATIVE) 03/10/17 02:50 Urine Nitrite NEGATIVE (NEGATIVE) 03/10/17 02:50 Urine Bilirubin NEGATIVE (NEGATIVE) 03/10/17 02:50 Urine Urobilinogen 0.2 (NORMAL) E.U./dL (NORMAL) 03/10/17 02:50 Ur Leukocyte Esterase NEGATIVE (NEGATIVE) 03/10/17 02:50 Ur Microscopic Review NOT INDICATED 03/10/17 02:50 Urine Culture Comments NOT INDICATED 03/10/17 02:50 Last Dose Date 03/16/2017 03/17/17 16:20 Last Dose Time 16203/17/17 16:20 Vancomycin Trough 5.8 ug/mL (5.0-15.0) 03/17/17 16:20 Urine Opiates Screen NEGATIVE (NEGATIVE) 03/10/17 02:50 Ur Oxycodone Screen NEGATIVE (NEGATIVE) 03/10/17 02:50 Urine Methadone Screen NEGATIVE (NEGATIVE) 03/10/17 02:50 Ur Propoxyphene Screen NEGATIVE (NEGATIVE) 03/10/17 02:50 Acetaminophen < 10 ug/mL (10-30) L 03/10/17 01:25 Ur Barbiturates Screen NEGATIVE (NEGATIVE) 03/10/17 02:50 Ur Tricyclics Screen NEGATIVE (NEGATIVE) 03/10/17 02:50 Ur Phencyclidine Scrn NEGATIVE (NEGATIVE) 03/10/17 02:50 Ur Amphetamine Screen NEGATIVE (NEGATIVE) 03/10/17 02:50 U Methamphetamines Scrn NEGATIVE (NEGATIVE) 03/10/17 02:50 U Benzodiazepines Scrn NEGATIVE (NEGATIVE) 03/10/17 02:50 Urine Cocaine Screen NEGATIVE (NEGATIVE) 03/10/17 02:50 U Cannabinoids Screen NEGATIVE (NEGATIVE) 03/10/17 02:50 Blood Type A POSITIVE 03/14/17 02:27 Blood Type Recheck A POSITIVE 03/14/17 03:00 Antibody Screen NEGATIVE 03/14/17 02:27 Crossmatch IS Only See Detail 03/14/17 02:27
--- NOTE | 2017-03-18 14:36 | DISCHARGE SUMMARY ---
DATE OF ADMISSION: 03/10/2017 DATE OF DISCHARGE: Pending Presentation: This is a 66-year-old white female with a history of hypertension , insulin-dependent diabetes, mucinous cancer of the appendix, which was resected and she received chemotherapy in the [facility] and [facility]. She has a history of ureteral stent. The patient has been living in [facility] and was visiting the [facility], the [place] and then came to [facility], and while here developed altered mental status and was brought into the emergency room. 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 HOSPITAL COURSE AND DISCHARGE DIAGNOSES 1. Acute (aseptic) meningitis. The patient has been treated with IV antibiotics using ciprofloxacin 200 mg IV q.12 hours for 8 days and aztreonam, 2 grams IV q.8 hours for the past 4 days and acyclovir IV every 8 hours for the past 4 days. She had marked improvement in her mental status following the initiation of these medications and is now alert and oriented x3 and neurologically entirely intact. As there has been no fever since the first day of admission, the plan is to complete a 14-day total course of treatment and, she will be transitioned to p.o. antibiotics. 2. Insulin-dependent diabetes. The patient was placed on sliding scale insulin coverage and then when she was able to eat, her usual doses of oral agent and insulin were used along with sliding scale insulin. Because the patient has poor p.o. intake (only 20% of her diet is taken in), she had a regular diet ordered, not a diabetic diet. 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 4. Chronic intermittent lower abdominal pain. This has been a longstanding problem, not acute. The patient reports that this is from the stent that was placed in the ureter. Pain control was continued throughout this admission. 5. Hypertension. Once the patient had improvement in mental status, her p.o. hypertensive medications were resumed, and she had good control during this admission. 6. During the course of the admission, the patient had a drop in hemoglobin from 12 grams to 5 grams and required transfusion of 4 units of packed red blood cells. The following day she had several large tarry and melenic stools and containing blood clots. 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 This was cauterized at the time of the colonoscopy. The patient's hemoglobin stabilized with no further need for transfusion. There were no further melenic or tarry stools. CONDITION AT TIME OF DISCHARGE: The patient was felt to be stable for discharge and fit for travel. There was contact with the insurance company for arrangements for travel back to [facility]. FOLLOWUP RECOMMENDATIONS: Followup with her primary care doctor and oncologist when she returns back to her domicile in [facility]. MEDICATIONS AT TIME OF DISCHARGE 1. Glucophage 500 mg p.o. b.i.d. 2. Lantus Insulin 10 U sq at bedtime. 2. Avapro 150 mg p.o. daily in the morning. 3. Dilaudid 1 mg p.o. q.2 hours p.r.n. pain. (new) 5. Potassium chloride 40 mEq p.o. daily (new) 4. Magnesium 100 mg p.o. daily 4. Bisoprolol 10 mg p.o. daily every morning. 5. Vancomycin 250 mg p.o. b.i.d. for an additional 7 days (new) 6. Cipro 500 mg p.o. b.i.d. for an additional 7 days (new) The patient is a DO NOT RESUSCITATE status. JOB #: [id number] EXT JOB #:[id number] [email or web address]
[2017-03-18] MEDS: ACETAMINOPHEN 1,000 MG/100 ML 100 ML IV PRN (17:39)
[2017-03-19] MEDS: MORPHINE 2 MG/ML SYRINGE IVP PRN ×4 (00:06→07:01)
[2017-03-19] MEDS: AZTREONAM 2 GM in SODIUM CHLORIDE 0.9% MINIBAG 100 ML IV SCH ×3 (01:31→18:20)
[2017-03-19] MEDS: SODIUM CHLORIDE FLUSH 0.9% 10 ML SYRINGE IVP PRN ×2 (02:02→07:00)
[2017-03-19] MEDS: CIPROFLOXACIN 200 MG/100 ML 100 ML IV SCH (04:37)
[2017-03-19] MEDS: SODIUM CHLORIDE FLUSH 0.9% 10 ML SYRINGE IVP SCH ×3 (06:15→20:48)
[2017-03-19] MEDS: ACETAMINOPHEN 1,000 MG/100 ML 100 ML IV PRN (08:06)
[2017-03-19] MEDS: INSULIN ASPART 300 UNIT/3 ML PEN SUBQ SCH ×4 (08:06→20:52)
--- NOTE | 2017-03-19 09:03 | PROVIDER PROGRESS NOTE ---
Assessment/Plan - Problem List (1) Chronic pain Assessment/Plan: Will transition pt to po meds before DCh for plane trip (2) Meningitis Assessment/Plan: Continue plan (3) Anemia Qualifiers: Anemia type: iron deficiency Assessment/Plan: Stable H/H (4) Malignant neoplasm of appendix Assessment/Plan: Stable (5) Diabetes Qualifiers: Diabetes mellitus type: type 2 Assessment/Plan: Stable (6) Hypertension Qualifiers: Hypertension type: essential hypertension Qualified Code(s): I10 - Essential (primary) hypertension - Current Meds Current Meds: Current Medications Generic Name Dose Route Start Last Admin Trade Name Freq PRN Reason Stop Dose Admin Ciprofloxacin 100 mls @ 100 mls/hr 03/10/17 05:00 03/19/17 04:37 Cipro 200 Mg/100 Ml IV 100 mls/hr Q12H AGUSTINA Administration Acetaminophen 100 mls @ 400 mls/hr 03/10/17 20:57 03/19/17 08:06 Ofirmev IV 400 mls/hr Q6HR PRN Administration PAIN Acyclovir 500 mg/ Sodium 260 mls @ 250 mls/hr 03/14/17 08:00 03/18/17 23:58 Chloride IV 250 mls/hr Q8H AGUSTINA Administration Aztreonam 2 gm/ Sodium 100 mls @ 100 mls/hr 03/14/17 10:00 03/19/17 01:31 Chloride IV 100 mls/hr Q8H AGUSTINA Administration Potassium Chloride/Sodium Chloride 1,000 mls @ 83.333 mls/hr 03/15/17 18:00 16:01 Normal Saline 0.9% W/20 Meq Kcl IV 83.333 mls/hr .Q12H AGUSTINA Administration Vancomycin HCl 1 gm/ Sodium 250 mls @ 166.667 mls/hr 03/18/17 20:00 03/18/17 20 :16 Chloride IV 166.667 mls/hr Q12H AGUSTINA Administration Insulin Aspart 3 - 11 unit 03/15/17 21:30 03/19/17 08:06 Novolog SUBQ Not Given 0800,1200,1700,2100 AGUSTINA Protocol Insulin Glargine 20 unit 03/14/17 09:00 03/18/17 08:54 Lantus Solostar SUBQ 20 unit DAILY AGUSTINA Administration Lorazepam 1 mg 03/10/17 20:58 03/16/17 00:51 Ativan Inj IVP 1 mg Q2HR PRN Administration Agitation Losartan Potassium 50 mg 03/13/17 09:00 03/18/17 08:47 Cozaar PO 50 mg DAILY AGUSTINA Administration Morphine Sulfate 2 mg 03/11/17 08:00 03/19/17 07:01 Morphine IVP 2 mg Q2HR PRN Administration PAIN Ondansetron HCl 4 mg 03/13/17 07:37 03/13/17 12:48 Zofran Inj IVP 4 mg Q4HR PRN Administration Nausea / Vomiting (Bisoprolol Fumarate 1 each 03/13/17 09:00 03/18/17 08:52 [Bisoprolol PO 1 each Fumarate] 10 Mg) Tab DAILY AGUSTINA Administration Polyethylene Glycol 17 gm 03/10/17 09:00 03/18/17 08:46 Miralax PO Not Given DAILY AGUSTINA Potassium Chloride 40 meq 03/15/17 12:00 03/18/17 08:46 K-Dur PO 40 meq DAILYWM AGUSTINA Administration Prochlorperazine Edisylate 10 mg 03/10/17 04:00 03/13/17 17:28 Compazine Inj IVP 10 mg Q6HR PRN Administration Nausea / Vomiting Senna 8.6 - 17.2 mg 03/18/17 13:00 03/18/17 12:54 Senokot PO 8.6 mg DAILY AGUSTINA Administration Sodium Chloride 10 ml 03/10/17 04:00 03/19/17 07:00 Normal Saline Flush 0.9% IVP 10 ml PRN PRN Administration NEEDED PER PROVIDER ORDERS Sodium Chloride 10 ml 03/10/17 06:00 03/19/17 06:15 Normal Saline Flush 0.9% IVP 10 ml Q8HR AGUSTINA Administration - Lab Result Fish Bone Diagrams: 03/17/17 05:07 03/17/17 05:07 - Additional Planning My Orders: My Active Orders 03/18/17 13:00 Senna [Senokot] 8.6 - 17.2 mg PO DAILY 03/19/17 09:00 Docusate Sodium 250Mg Capsule [Colace 250Mg Capsule] 250 - 500 mg PO DAILY Subjective - Subjective Patient Reports: Back Pain (LLQ - chronic x mos and intermittent, responds to narcotics Got restful sleep due to pain control) Objective Vital Signs: Vital Signs - 24 hr 03/18/17 03/18/17 03/18/17 15:47 15:56 23:35 Temperature 36.6 C 36.9 C Heart Rate [ 73 Brachial] Heart Rate [ 68 Radial] Respiratory 18 16 Rate Blood Pressure 153/96 H 162/92 H [Right Radial artery] O2 Saturation 95 98 03/19/17 07:40 Temperature 37.1 C Heart Rate [ Brachial] Heart Rate [ 80 Radial] Respiratory 16 Rate Blood Pressure 178/64 H [Right Radial artery] O2 Saturation 97 Oxygen O2 Source [Without Activity] Room air O2 Source Room air I&O (Last 24 Hrs): Intake and Output Totals x24h 03/17/17 03/18/17 03/19/17 23:59 23:59 23:59 Intake Total 3161 4850 1214 Output Total 650 550 Balance 2511 4300 1214 General: Alert, Oriented x3 HEENT: Mucous membr. moist/pink Neck: Supple Cardiovascular: Regular rate Respiratory: No respiratory distress Extremities: No edema - Results Results: Laboratory Results WBC 12.8 x10^3/uL (4.8-10.8) H 03/17/17 05:07 RBC 3.73 10^6/uL (4.20-5.40) L 03/17/17 05:07 Hgb 11.4 g/dL (12.0-16.0) L 03/17/17 05:07 Hct 33.3 % (37.0-47.0) L 03/17/17 05:07 MCV 89.2 fL (81.0-99.0) 03/17/17 05:07 MCH 30.6 pg (27.0-31.0) 03/17/17 05:07 MCHC 34.3 g/dL (32.0-36.0) 03/17/17 05:07 RDW 17.5 % (12.0-15.0) H 03/17/17 05:07 Plt Count 231 10^3/uL (130-450) 03/17/17 05:07 MPV 7.2 fL (7.9-10.8) L 03/17/17 05:07 Neut # 9.9 10^3/uL (1.5-6.6) H 03/17/17 05:07 Lymph # 1.1 10^3/uL (1.5-3.5) L 03/17/17 05:07 [place] # 1.1 10^3/uL (0.0-1.0) H 03/17/17 05:07 Eos # 0.6 10^3/uL (0.0-0.7) 03/17/17 05:07 Baso # 0.0 10^3/uL (0.0-0.1) 03/17/17 05:07 Absolute Nucleated RBC 0.00 x10^3/uL 03/17/17 05:07 Total Counted 100 03/13/17 05:33 Band Neuts % (Manual) 4 % (0-10) 03/13/17 05:33 Neutrophils # (Manual) 7.9 10^3/uL (1.5-6.6) H 03/13/17 05:33 Lymphocytes # (Manual) 0.3 10^3/uL (1.5-3.5) L 03/13/17 05:33 Monocytes # (Manual) 0.4 10^3/uL (0.0-1.0) 03/13/17 05:33 Nucleated RBCs 0.0 /100WBC 03/17/17 05:07 Differential Comment MANUAL DIFFERENTIAL 03/13/17 05:33 Manual Slide Review Indicated 03/14/17 00:47 Platelet Estimate NORMAL (130-450,000) (NORMAL) 03/14/17 00:47 Platelet Morphology NORMAL APPEARANCE (NORMAL) 03/14/17 00:47 RBC Morph Micro Appear NORMAL APPEARANCE (NORMAL) 03/14/17 00:47 Haptoglobin 219 mg/dL (43-212) H 03/15/17 05:54 PT 12.1 secs (9.9-12.6) 03/15/17 05:54 INR 1.1 (0.8-1.2) 03/15/17 05:54 APTT 26.9 secs (24.9-33.3) 03/10/17 01:25 Fibrinogen 473 mg/dL (220-496) 03/15/17 05:54 Sodium 135 mmol/L (135-145) 03/17/17 05:07 Potassium 3.0 mmol/L (3.5-5.0) L 03/17/17 05:07 Chloride 101 mmol/L (101-111) 03/17/17 05:07 Carbon Dioxide 27 mmol/L (21-32) 03/17/17 05:07 Anion Gap 7.0 (6-13) 03/17/17 05:07 BUN 8 mg/dL (6-20) 03/17/17 05:07 Creatinine 0.4 mg/dL (0.4-1.0) 03/17/17 05:07 Estimated GFR (MDRD) 160 (>89) 03/17/17 05:07 Glucose 185 mg/dL (70-100) H 03/17/17 05:07 POC Whole Bld Glucose 120 mg/dL (70 - 100) H 03/19/17 07:34 Glycated Hemoglobin 7.1 % (4.6-6.2) H 03/15/17 17:51 Estim Average Glucose 157 (70-100) H 03/15/17 17:51 Calcium 7.9 mg/dL (8.5-10.3) L 03/17/17 05:07 Phosphorus 3.2 mg/dL (2.5-4.6) 03/10/17 01:25 Magnesium 2.3 mg/dL (1.7-2.8) 03/16/17 05:15 Iron 53 ug/dL (28-170) 03/13/17 05:33 TIBC 179 ug/dL (250-450) L 03/13/17 05:33 % Saturation 30 % (20-50) 03/13/17 05:33 Transferrin 128 mg/dL (192-382) L 03/13/17 05:33 Ferritin 556.1 ng/mL (11.0-306.8) H 03/13/17 05:33 Total Bilirubin 0.8 mg/dL (0.2-1.0) 03/17/17 05:07 AST 15 IU/L (10-42) 03/17/17 05:07 ALT 12 IU/L (10-60) 03/17/17 05:07 Alkaline Phosphatase 45 IU/L (42-121) 03/17/17 05:07 Ammonia 13.6 umol/L (7-35) 03/11/17 07:58 Lactate Dehydrogenase 226 IU/L (91-225) H 03/15/17 05:54 Troponin I < 0.04 ng/mL (<0.49) 03/10/17 01:25 B-Natriuretic Peptide 105 pg/mL (5-100) H 03/10/17 01:25 Total Protein 5.6 g/dL (6.7-8.2) L 03/17/17 05:07 Albumin 2.7 g/dL (3.2-5.5) L 03/17/17 05:07 Globulin 2.9 g/dL (2.1-4.2) 03/17/17 05:07 Albumin/Globulin Ratio 0.9 (1.0-2.2) L 03/17/17 05:07 Triglycerides 86 mg/dL (-149) 03/11/17 06:08 Cholesterol 179 mg/dL (-199) 03/11/17 06:08 LDL Cholesterol, Calc 105 mg/dL (-129) 03/11/17 06:08 VLDL Cholesterol 17 mg/dL 03/11/17 06:08 HDL Cholesterol 57 mg/dL (60-) L 03/11/17 06:08 LDL/HDL Ratio 1.8 (<4.4) 03/11/17 06:08 Cholesterol/HDL Ratio 3.1 (<4.4) 03/11/17 06:08 Lipase 21 U/L (22-51) L 03/10/17 01:25 Vitamin B12 295 pg/mL (180-914) 03/13/17 05:33 Folate 12.31 ng/mL (5.90 - >24.8) 03/13/17 05:33 TSH 0.78 uIU/mL (0.34-5.60) 03/11/17 07:58 Urine Color YELLOW 03/10/17 02:50 Urine Clarity CLEAR (CLEAR) 03/10/17 02:50 Urine pH 7.5 PH (5.0-7.5) 03/10/17 02:50 Ur Specific [place] 1.015 (1.002-1.030) 03/10/17 02:50 Urine Protein TRACE mg/dL (NEGATIVE) 03/10/17 02:50 Urine Glucose (UA) 500 mg/dL (NEGATIVE) H 03/10/17 02:50 Urine Ketones TRACE mg/dL (NEGATIVE) 03/10/17 02:50 Urine Occult Blood TRACE-INTA (NEGATIVE) 03/10/17 02:50 Urine Nitrite NEGATIVE (NEGATIVE) 03/10/17 02:50 Urine Bilirubin NEGATIVE (NEGATIVE) 03/10/17 02:50 Urine Urobilinogen 0.2 (NORMAL) E.U./dL (NORMAL) 03/10/17 02:50 Ur Leukocyte Esterase NEGATIVE (NEGATIVE) 03/10/17 02:50 Ur Microscopic Review NOT INDICATED 03/10/17 02:50 Urine Culture Comments NOT INDICATED 03/10/17 02:50 Last Dose Date UNK 03/19/17 07:30 Last Dose Time UNK 03/19/17 07:30 Vancomycin Trough 13.3 ug/mL (5.0-15.0) 03/19/17 07:30 Urine Opiates Screen NEGATIVE (NEGATIVE) 03/10/17 02:50 Ur Oxycodone Screen NEGATIVE (NEGATIVE) 03/10/17 02:50 Urine Methadone Screen NEGATIVE (NEGATIVE) 03/10/17 02:50 Ur Propoxyphene Screen NEGATIVE (NEGATIVE) 03/10/17 02:50 Acetaminophen < 10 ug/mL (10-30) L 03/10/17 01:25 Ur Barbiturates Screen NEGATIVE (NEGATIVE) 03/10/17 02:50 Ur Tricyclics Screen NEGATIVE (NEGATIVE) 03/10/17 02:50 Ur Phencyclidine Scrn NEGATIVE (NEGATIVE) 03/10/17 02:50 Ur Amphetamine Screen NEGATIVE (NEGATIVE) 03/10/17 02:50 U Methamphetamines Scrn NEGATIVE (NEGATIVE) 03/10/17 02:50 U Benzodiazepines Scrn NEGATIVE (NEGATIVE) 03/10/17 02:50 Urine Cocaine Screen NEGATIVE (NEGATIVE) 03/10/17 02:50 U Cannabinoids Screen NEGATIVE (NEGATIVE) 03/10/17 02:50 Blood Type A POSITIVE 03/14/17 02:27 Blood Type Recheck A POSITIVE 03/14/17 03:00 Antibody Screen NEGATIVE 03/14/17 02:27 Crossmatch IS Only See Detail 03/14/17 02:27
[2017-03-19] MEDS ORDERED: NS W/20 MEQ KCL 1,000 ML IV SCH (09:05)
[2017-03-19] MEDS ORDERED: HYDROmorphone 2 MG TABLET PO PRN (09:06)
[2017-03-19] MEDS: VANCOMYCIN INJ 1 GM in SODIUM CHLORIDE 0.9% 250 ML IV SCH (09:19)
[2017-03-19] MEDS: POTASSIUM CHLORIDE 20 MEQ TABLET PO SCH (09:19)
[2017-03-19] MEDS: POLYETHYLENE GLYCOL 3350 17 GM PACKET PO SCH (09:20)
[2017-03-19] MEDS: LOSARTAN 50 MG TABLET PO SCH (09:20)
[2017-03-19] MEDS: SENNA 8.6 MG TABLET PO SCH (09:20)
[2017-03-19] MEDS: DOCUSATE SODIUM 250 MG CAPSULE PO SCH (09:20)
[2017-03-19] MEDS: INSULIN GLARGINE 300 UNIT/3 ML PEN SUBQ SCH (09:21)
[2017-03-19] MEDS: BISOPROLOL FUMARATE 10 MG PO SCH (09:52)
[2017-03-19] MEDS ORDERED: INSULIN GLARGINE 300 UNIT/3 ML PEN SUBQ SCH (11:01)
[2017-03-19] MEDS: ACYCLOVIR INJ 500 MG in SODIUM CHLORIDE 0.9% 250 ML IV SCH ×2 (11:06→17:02)
[2017-03-19] MEDS: ACETAMINOPHEN 325 MG TABLET PO PRN ×2 (12:22→18:20)
[2017-03-19] MEDS: HYDROmorphone 2 MG TABLET PO PRN ×3 (15:33→20:47)
[2017-03-19] MEDS ORDERED: metFORMIN 500 MG TABLET PO SCH (17:00)
[2017-03-19] MEDS ORDERED: LACTULOSE 10 GM /15 ML UDC PO ONE (20:29)
[2017-03-19] MEDS ORDERED: LACTULOSE 10 GM /15 ML UDC ONE (20:45)
[2017-03-19] MEDS: DOXYCYCLINE 100 MG TABLET PO SCH (20:47)
[2017-03-19] MEDS: CIPROFLOXACIN 250 MG TABLET PO SCH (20:47)
[2017-03-19] MEDS ORDERED: VANCOMYCIN 125 MG CAPSULE PO SCH (21:00)
[2017-03-19] MEDS ORDERED: LACTULOSE 10 GM /15 ML UDC PO SCH (21:22)
[2017-03-20] MEDS: HYDROmorphone 2 MG TABLET PO PRN ×3 (00:14→06:52)
[2017-03-20] MEDS: ACYCLOVIR INJ 500 MG in SODIUM CHLORIDE 0.9% 250 ML IV SCH (00:15)
[2017-03-20] MEDS: AZTREONAM 2 GM in SODIUM CHLORIDE 0.9% MINIBAG 100 ML IV SCH (01:56)
[2017-03-20] MEDS: ONDANSETRON 4 MG/2 ML VIAL IVP PRN (06:27)
[2017-03-20] MEDS: SODIUM CHLORIDE FLUSH 0.9% 10 ML SYRINGE IVP SCH (06:40)
[2017-03-20] MEDS: DOXYCYCLINE 100 MG TABLET PO SCH (07:20)
[2017-03-20 07:22] VITALS: BP 166/78
[2017-03-20] MEDS: CIPROFLOXACIN 250 MG TABLET PO SCH (07:22)
[2017-03-20] MEDS: POTASSIUM CHLORIDE 20 MEQ TABLET PO SCH (07:23)
[2017-03-20] MEDS: LOSARTAN 50 MG TABLET PO SCH (07:23)
[2017-03-20] MEDS: DOCUSATE SODIUM 250 MG CAPSULE PO SCH (07:24)
--- NOTE | 2017-03-20 07:24 | Discharge Plan ---
Discharge Plan Disposition: 01 Home, Self Care Prescriptions: Ciprofloxacin HCl [Cipro] 500 mg PO BID #14 tablet HYDROmorphone [Dilaudid] 1 mg PO Q2H #12 tablet Doxycycline Monohydrate 100 mg PO BID #14 tablet Diet: Regular Activity Restrictions: Activity as Tolerated Shower Restrictions: No Driving Restrictions: Yes Weight Bearing: Full Weight Instruction Topics: Hyperglycemia, Hypoglycemia, Hyperglycemia Steps, Hypoglycemia Steps No Smoking: If you smoke, Please STOP! Call for help.
== END 2017-03-20 07:30 | disposition home or self-care (01) | DRG 98 ==
LOC: ED 23:42 → OBS 03-10 04:00 → OBSVTOIN 03-10 23:38 → MS2 03-11 00:14
PROVIDERS: ADMIT Specialist; ATTEND Internal Medicine
PROC: 30233N1 Transfusion of Nonautologous Red Blood Cells into Peripheral Vein, Percutaneous Approach (ICD-10-PCS; 2017-03-14)
PROC: 0W3P8ZZ Control Bleeding in Gastrointestinal Tract, Via Natural or Artificial Opening Endoscopic (ICD-10-PCS; principal; 2017-03-16 09:00)
PROC: 0DJ08ZZ Inspection of Upper Intestinal Tract, Via Natural or Artificial Opening Endoscopic (ICD-10-PCS; 2017-03-16 09:00)
DX: R41.82 Altered mental status, unspecified (principal); G03.0 Nonpyogenic meningitis; C18.1 Malignant neoplasm of appendix; C78.2 Secondary malignant neoplasm of pleura; T83.84XA Pain due to genitourinary prosthetic devices, implants and grafts, initial encounter; G81.01 Flaccid hemiplegia affecting right dominant side; N20.1 Calculus of ureter; E11.65 Type 2 diabetes mellitus with hyperglycemia; Q27.33 Arteriovenous malformation of digestive system vessel; D50.0 Iron deficiency anemia secondary to blood loss (chronic); E87.6 Hypokalemia; G89.29 Other chronic pain; I10 Essential (primary) hypertension; K63.5 Polyp of colon; K64.8 Other hemorrhoids; K64.4 Residual hemorrhoidal skin tags; Z96.0 Presence of urogenital implants; Y83.1 Surgical operation with implant of artificial internal device as the cause of abnormal reaction of the patient, or of later complication, without mention of misadventure at the time of the procedure; Z66 Do not resuscitate; Z79.4 Long term (current) use of insulin; Z87.440 Personal history of urinary (tract) infections; Z88.0 Allergy status to penicillin; Z92.21 Personal history of antineoplastic chemotherapy
CPT/HCPCS: 36415; 70450; 70553; 74000; 74177; 80048; 80053; 80061; 80306; 80307; 81001; 81003; 82140; 82270; 82607; 82728; 82746; 83010; 83036; 83540; 83615; 83690; 83735; 83880; 84100; 84443; 84466; 84484; 85025; 85384; 85610; 85730; 86850; 86900; 86901; 86920; 87040; 87086; 94640; 96365; 96366; 96375; 96376; 99284; 99285